=== PATIENT | male | born 1930 | race Caucasian/White ===

== ENCOUNTER 2018-12-18 14:08 | Emergency (ER) | payer OTHER ==
[2018-12-18 14:54] VITALS: BP 143/54; PULSE 67; TEMP 96.7; BMI 23.1
--- NOTE | 2018-12-18 15:24 | PDOC ---
History of Present Illness - General Chief Complaint: Altered Mental Status Stated Complaint: Altered Mental Status Time Seen by Provider: 12/18/18 14:26 History Source: Patient, Spouse ( present at bedside.), Longterm Records Exam Limitations: Dementia - History of Present Illness Initial Comments: HPI: 88 y/o male presenting to [facility] ER from [facility] for aggressive behavior. Transfer paperwork indicates the pt was shaking his wheelchair and attempting to overturn tables. at bedside reports the pt seems somewhat confused but then endorses confusion at baseline. She expresses concern the pt has a UTI as he has exhibited somewhat similar symptoms with previous UTIs vs dehydration. She further reports the pt struck his left arm but does not believe he fell to the ground or passed out. Pt was started on Celexa and Klonopin on 16 December 2018. Pt reports he feels something like a rubber band in his left shoulder, though sometimes he feels this in his right shoulder. Limited HPI as pt is only oriented to self. MOLST Form dated 24 August 2018 indicates pt is DNR/DNI. Medical Hx: - CVA/TIA - Generalized Muscle Weakness - HTN - Systolic CHF - HLD - BPH - H/o recurrent UTI - Unspecified cardiomyopathy - H/o of Thyroid CA s/p thyroidectomy - Macular Degeneration - Parkinsons Disease - Generalized weakness, unable to stand or walk without assistance - Unspecified dementia without behavioral disturbance Review of Systems: Unable to obtain secondary to pts condition Physical Examination: Constitutional: Nontoxic elderly adult male in no acute distress or obvious discomfort. Found semi-fowlers on hospital bed. Eyes closed but answers immediately to verbal questioning. Oriented to person but not place, time, or events. Episode of bizarre conversation about baby wrists. Head: Normocephalic. No obvious external signs of trauma. No c-spine tenderness. Eyes: Pt would not open eyes. Ears: Hearing grossly intact. Nose: No nasal discharge. Neck: Supple, trachea is midline. Cardiovascular / Chest: Regular rate and regular rhythm. No murmur, rubs, clicks , or gallops. Peripheral pulses: radial pulses full. No pretibial edema. No anterior chest wall tenderness to palpation. Respiratory: Breathing unlabored. Equal chest rise and fall. Clear to auscultation bilaterally. No stridor, no wheezing, no rhonchi. Gastrointestinal: abdomen is soft, non-tender, non-distended. Easily reducible ventral hernia. Neuro: Moving all four extremities spontaneously. Skin / MSK: 2x aprox. 1cm skin tears to left forearm. No obvious bony deformities. No tenderness to palpation in wrist, forewarm, or elbow. Active ROM normal in wrist and elbow. Globally, skin is warm and dry. Psych: Affect: flat. Mood: normal. MDM: *Reviewed vital signs, nursing notes, and prior visit documentation (if available). 88 y/o male presenting w/ altered mental status w/ aggressive behavior. Recently started on Celexa and Klonopin. Afebrile. Vitals unremarkable for hypotension or tachycardia. Physical exam as described above. Suspect likely psychiatric medication side effects versus progression of dementia. Low suspicion for infectious etiology. CBC unremarkable for leukocytosis. UA unremarkable for signs of infection. Head CT unremarkable for acute intracranial process. CMP revealed mild azotemia. Suspect likely mild dehydration. Received IVFB. ED Attending reasessd pt and discussed the case with Dr. Langley. Pt discharged back to [facility] for further psychiatric evaluation. Storm Gregorio M.D., PGY2 Emergency Medicine Resident Past History - Past Medical History Allergies/Adverse Reactions: Allergies Allergy/AdvReac Type Severity Reaction Status Date / Time ramipril Allergy Verified 12/18/18 14:36 Anemia: Yes Cancer: Yes (thyroid) Cardiac Disorders: Yes (bradycardia, cardiomyopathy) CVA: Yes (tia) COPD: No HTN: Yes Other medical history: metabolic encephalopathy, bph, parkinson's disease - Suicide/Smoking/Psychosocial Hx Smoking History: Never smoked *Physical Exam - Vital Signs Last Vital Signs Temp Pulse Resp BP Pulse Ox 96.7 F L 67 143/54 L 92 L 12/18/18 14:36 12/18/18 14:36 12/18/18 14:36 12/18/18 14:36 ED Treatment Course - LABORATORY CBC & Chemistry Diagram: 12/18/18 15:40 12/18/18 15:40 - RADIOLOGY Radiology Studies Ordered: Category Date Time Status HEAD CT WITHOUT CONTRAST [CT] Stat CT Scan 12/18/18 15:22 Ordered *DC/Admit/Observation/Transfer Diagnosis at time of Disposition: Aggressive behavior of adult - Discharge Dispostion Disposition: HOME Condition at time of disposition: Good Decision to Admit order: No - Referrals Referrals: Darshan Langley MD [Primary Care Provider] - - Patient Instructions Additional Instructions: You were seen today for aggressive behavior. Your blood and urine tests were normal aside from possible slight dehydration. Your head CT was normal. You received IV fluids. Make sure to stay hydrated over the next several days. Follow up with your primary care doctor and discuss the new psychiatric medications. These may be the cause of your symptoms. Go to the nearest emergency department if your condition worsens or you feel like you need additional emergency evaluation. Print Language: GUYANESE - Post Discharge Activity
[2018-12-18] MEDS ORDERED: SODIUM CHLORIDE 1,000 ML IV ONE (15:39)
[2018-12-18 16:15] LABS: BASO % 0.8 % (0-2.0); EOS % 3.2 % (0-4.5); HEMATOCRIT 31.6 % (35.4-49); HEMOGLOBIN 10.7 GM/dL (11.7-16.9); LYMPH % 15.9 % (8-40); MCH 29.9 pg (25.7-33.7); MEAN PLT VOLUME 8.4 fl (7.5-11.1); MONO % 10.7 % (3.8-10.2); NEUT % 69.4 % (42.8-82.8); PLATELET COUNT 214 K/MM3 (134-434); RBC 3.59 M/mm3 (4.00-5.60); RDW 14.1 % (11.9-15.9); WHITE BLOOD COUNT 5.1 K/mm3 (4.0-10.0)
--- NOTE | 2018-12-18 16:26 | PDOC ---
Documentation entered by Olivia Velásquez SCRIBE, acting as scribe for Victor Hugo José MD. Victor Hugo José MD: This documentation has been prepared by the Christen estrada Brenda, SCRIBE, under my direction and personally reviewed by me in its entirety. I confirm that the documentation accurately reflects all work, treatment, procedures, and medical decision making performed by me. Attending Attestation - Resident Resident Name: Storm - ED Attending Attestation I have performed the following: I have examined & evaluated the patient, The case was reviewed & discussed with the resident, I agree w/resident's findings & plan, Exceptions are as noted - HPI HPI: 12/18/18 15:39 The patient is a 88 year old male, with a significant PMH of CVA/TIA, Generalized Muscle Weakness (unable to stand or walk without assistance), HTN, Systolic CHF, HLD, BPH, H/o recurrent UTI, Unspecified cardiomyopathy, H/o of Thyroid CA s/p thyroidectomy, Macular Degeneration, Parkinsons Disease, Unspecified dementia without behavioral disturbance who presents to the emergency department BIB from [facility] for altered mental status resulting in aggressive behavior. As per paperwork, patient was shaking wheelchair and trying to overturn tables, in an aggressive manner. per , on the bedside, on the bedside she note that he is reacting the same way as he did when he had his previous UTIs. She reports that he has struck his left arm , but she neither she or he is aware of any falls. She also notes that he is confused, which is his baseline. History was limited due to patients condition , however he does note having no complaints. Allergies: Ramipril PCP: Dr. Darshan Langley - Physicial Exam PE: 12/18/18 15:37 GENERAL: The patient is awake, alert and oriented x 1 HEAD: Normocephalic, atraumatic. EYES: extraocular movements intact, sclera anicteric, conjunctiva clear. ENT: Normal voice, dry mucous membranes. NECK: Normal range of motion, supple LUNGS: Breath sounds equal, clear to auscultation bilaterally. No wheezes, no rhonchi, no rales. HEART: Regular rate and rhythm, normal S1 and S2 without murmur, rub or gallop. ABDOMEN: Soft, nontender, No guarding, no rebound. No CVA tenderness EXTREMITIES: Normal range of motion, no edema. NEUROLOGICAL: No facial assymetry, Normal speech, moving all 4 extremities spontaneously and symmetrically PSYCH: Normal mood, normal affect. SKIN: Warm, Dry, normal turgor, - Medical Decision Making 12/18/18 15:16 88y M chf, cva/tia, recurrent tia, parkinsons, htn, hl, bph, unspecified dementia, from [facility] presents with confusion. history limited exam non focal beside mental status and dry mmm ddx - cva, occult infection, med interaction will ck labs, ua, cxr, ct head efrain hydrate pt as he appears dry wlil reassess 12/18/18 17:21 labs reviewed noted for nena, likely dehydration charanjit Iyer and CT head pt signed ou tto evening team for disposition and reassess Heart Score/ECG Review - ECG Impressions Comment:: 12/18/18 17:11 Twelve-lead EKG was performed and reviewed by me. There is normal sinus rhythm with a normal rate. rate of [address] wave changes no old ekg for comparison
[2018-12-18 16:44] LABS: ALBUMIN 3.7 g/dl (3.4-5.0); BILIRUBIN,TOTAL 0.5 mg/dL (0.2-1); BLOOD UREA NITROGEN 38.6 mg/dL (7-18); CALCIUM 9.5 mg/dL (8.5-10.1); CREATININE 1.4 mg/dL (0.55-1.3); POTASSIUM 4.1 mmol/L (3.5-5.1); TOT PROT 6.7 g/dl (6.4-8.2)
[2018-12-18 17:21] LABS: PH,URINE 7.5 (5.0-8.0); URINE APPEARANCE CLEAR; URINE BILIRUBIN NEGATIVE (NEGATIVE); URINE COLOR YELLOW; URINE GLUCOSE (UA) NEGATIVE (NEGATIVE); URINE KETONE NEGATIVE (NEGATIVE); URINE LEUK ESTERASE NEGATIVE (NEGATIVE); URINE NITRITE NEGATIVE (NEGATIVE); URINE PROTEIN NEGATIVE (NEGATIVE); URINE UROBILINOGEN 0.2 mg/dL (0.2-1.0)
--- NOTE | 2018-12-18 19:35 | PDOC ---
*Physical Exam - Vital Signs Last Vital Signs Temp Pulse Resp BP Pulse Ox 96.7 F L 67 143/54 L 92 L 12/18/18 14:36 12/18/18 14:36 12/18/18 14:36 12/18/18 14:36 ED Treatment Course - LABORATORY CBC & Chemistry Diagram: 12/18/18 15:40 12/18/18 15:40 - ADDITIONAL ORDERS Additional order review: Laboratory Results 12/18/18 12/18/18 12/18/18 17:00 15:40 15:40 Sodium 140 Potassium 4.1 Chloride 103 Carbon Dioxide 30 Anion Gap 8 BUN 38.6 H Creatinine 1.4 H Est GFR (CKD-EPI)AfAm 51.26 Est GFR (CKD-EPI)NonAf 44.23 Random Glucose 96 Calcium 9.5 Total Bilirubin 0.5 AST 18 ALT 16 Alkaline Phosphatase 70 Troponin I < 0.02 Total Protein 6.7 Albumin 3.7 Urine Color Yellow Urine Appearance Clear Urine pH 7.5 Ur Specific [place] 1.011 Urine Protein Negative Urine Glucose (UA) Negative Urine Ketones Negative Urine Blood Negative Urine Nitrite Negative Urine Bilirubin Negative Urine Urobilinogen 0.2 Ur Leukocyte Esterase Negative 12/18/18 15:40 RBC 3.59 L MCV 88.0 MCHC 34.0 RDW 14.1 MPV 8.4 Neutrophils % 69.4 Lymphocytes % 15.9 Monocytes % 10.7 H Eosinophils % 3.2 Basophils % 0.8 - Medications Given in the ED: ED Medications Discontinued Medications Generic Name Dose Route Start Last Admin Trade Name Freq PRN Reason Stop Dose Admin Sodium Chloride 1,000 mls @ 1,000 mls/hr 12/18/18 15:39 12/18/18 15:49 Normal Saline - IV 12/18/18 16:38 1,000 mls/hr .Q1H ONE Administration Medical Decision Making - Medical Decision Making 12/18/18 19:33 skin the head was negative for any acute intracranial pathology UA was negative. Labs were reviewed This patient was started on Celexa and Klonopin 2 days ago and he had never been on these medications prior to this. Patient is sleeping but wakes and responds appropriately when you speak to him. This is his baseline. Case discussed with Dr. Darshan Ureña, who agrees the [facility] The plan is for the psychiatrist there to eval his psychiatric medications and make adjustments *DC/Admit/Observation/Transfer Diagnosis at time of Disposition: Aggressive behavior of adult - Discharge Dispostion Disposition: HOME Condition at time of disposition: Good - Referrals Referrals: Darshan Langley MD [Primary Care Provider] - - Patient Instructions Additional Instructions: You were seen today for aggressive behavior. Your blood and urine tests were normal aside from possible slight dehydration. Your head CT was normal. You received IV fluids. Make sure to stay hydrated over the next several days. Follow up with your primary care doctor and discuss the new psychiatric medications. These may be the cause of your symptoms. Go to the nearest emergency department if your condition worsens or you feel like you need additional emergency evaluation. Print Language: YI - Post Discharge Activity
--- NOTE | 2018-12-19 09:30 | EKG ---
Test Reason : Blood Pressure : / mmHG Vent. Rate : 065 BPM Atrial Rate : 065 BPM P-R Int : 134 ms QRS Dur : 100 ms QT Int : 450 ms P-R-T Axes : 030 -07 033 degrees QTc Int : 468 ms POOR DATA QUALITY, INTERPRETATION MAY BE ADVERSELY AFFECTED NORMAL SINUS RHYTHM MODERATE VOLTAGE CRITERIA FOR LVH, MAY BE NORMAL VARIANT NONSPECIFIC ST ABNORMALITY ABNORMAL ECG NO PREVIOUS ECGS AVAILABLE Confirmed by Srinath Montano MD ([id number]) on 12/19/2018 9:29:35 AM Referred By: Confirmed By:Srinath Montano MD
== END 2018-12-18 21:22 ==
LOC: JER 14:08
DX: F91.8 Other conduct disorders (principal); I25.10 Atherosclerotic heart disease of native coronary artery without angina pectoris; I13.0 Hypertensive heart and chronic kidney disease with heart failure and stage 1 through stage 4 chronic kidney disease, or unspecified chronic kidney disease; N18.9 Chronic kidney disease, unspecified; I50.20 Unspecified systolic (congestive) heart failure; E78.5 Hyperlipidemia, unspecified; M62.81 Muscle weakness (generalized); N40.0 Benign prostatic hyperplasia without lower urinary tract symptoms; G20 Parkinson's disease; F02.81 Dementia in other diseases classified elsewhere, unspecified severity, with behavioral disturbance; E89.0 Postprocedural hypothyroidism; Z86.73 Personal history of transient ischemic attack (TIA), and cerebral infarction without residual deficits; Z87.440 Personal history of urinary (tract) infections; Z85.850 Personal history of malignant neoplasm of thyroid
CPT/HCPCS: 36415; 70450-TC; 80053; 81003; 84484; 85025; 87086; 93005; 93010; 99282-25; J7030

== ENCOUNTER 2019-03-01 08:24 | Emergency (ER) | payer OTHER, MEDICARE ==
--- NOTE | 2019-03-01 08:38 | PDOC ---
History of Present Illness - General Chief Complaint: Injury Stated Complaint: FALL/HEAD INJURY Time Seen by Provider: 03/01/19 08:38 Past History - Past Medical History Allergies/Adverse Reactions: Allergies Allergy/AdvReac Type Severity Reaction Status Date / Time ramipril Allergy Verified 12/18/18 14:36 Anemia: Yes Cancer: Yes (thyroid) Cardiac Disorders: Yes (bradycardia, cardiomyopathy) CVA: Yes (tia) COPD: No HTN: Yes - Psycho Social/Smoking Cessation Hx Smoking History: Never smoked ED Treatment Course - LABORATORY CBC & Chemistry Diagram: 03/01/19 12:15 03/01/19 12:15 Medical Decision Making - Medical Decision Making HPI: 88yo M with PMH of dementia, anxiety, depression, anemia, HLD sent by [facility] after a witnessed fall. Staff at CT saw the patient get up from his wheelchair and hit his head against the wall. No loss of consciousness or vomiting observed. Patient is not on blood thinners. At baseline, he is oriented to person but not place or time. He was sent to the ER on request from his primary care physician. History is limited as patient is uncooperative with exam. PCP: Dr. Langley ROS: unable to complete (patient uncooperative) PE: General: Eyes closed, arms folded, not answering questions, not following commands Head: Soft tissue swelling and superficial abrasion on right side of forehead Eyes: Eyes closed shut, PERRL ENT: Moist mucus membranes Neck: no stepoffs or deformities Lungs: Lungs clear, Normal breath sounds Cardio: Regular rhythm, S1 and S2 present Abdomen: Soft, nondistended. No grimacing noted upon palpation Extremities: Distal pulses present, ecchymosis and minor abrasions present on BLE SKIN: Warm, Dry, normal turgor Neurologic: Eyes closed, arms folded, not answering questions, not following commands ED Course/MDM: DDX including but not limited to brain bleed, cspine fracture, CVA/TIA CT Head CT Cspine 03/01/19 08:38 Call to Idalia Diego Patient had witnessed fall at 6:57am Sent to ER because he suffered a witnessed fall from his wheelchair and hit his head against the wall head bled No LOC Alert, was talking, VSS Dr. Langley requested that patient be sent to ER for CT Not on blood thinners Patient often closes his eyes and acts like he is asleep can say his name, not oriented to date/time Ext 307 03/01/19 08:48 Decision made to order some blood work and EKG as patient is non-conversant CBC WBC 3.7 K/mm3 (4.0-10.0) L 03/01/19 12:15 RBC 3.75 M/mm3 (4.00-5.60) L 03/01/19 12:15 Hgb 11.2 GM/dL (11.7-16.9) L 03/01/19 12:15 Hct 33.5 % (35.4-49) L 03/01/19 12:15 MCV 89.3 fl (80-96) 03/01/19 12:15 MCH 29.8 pg (25.7-33.7) 03/01/19 12:15 MCHC 33.4 g/dl (32.0-35.9) 03/01/19 12:15 RDW 13.4 % (11.9-15.9) 03/01/19 12:15 Plt Count 200 K/MM3 (134-434) 03/01/19 12:15 MPV 7.8 fl (7.5-11.1) 03/01/19 12:15 Absolute Neuts (auto) 2.3 K/mm3 (1.5-8.0) 03/01/19 12:15 Neutrophils % 62.1 % (42.8-82.8) 03/01/19 12:15 Lymphocytes % 20.4 % (8-40) D 03/01/19 12:15 Monocytes % 14.8 % (3.8-10.2) H 03/01/19 12:15 Eosinophils % 2.1 % (0-4.5) 03/01/19 12:15 Basophils % 0.6 % (0-2.0) 03/01/19 12:15 Nucleated RBC % 0 % (0-0) 03/01/19 12:15 No leukocytosis CMP Sodium 139 mmol/L (136-145) 03/01/19 12:15 Potassium 3.9 mmol/L (3.5-5.1) 03/01/19 12:15 Chloride 106 mmol/L (98-107) 03/01/19 12:15 Carbon Dioxide 28 mmol/L (21-32) 03/01/19 12:15 Anion Gap 5 MMOL/L (8-16) L 03/01/19 12:15 BUN 23.4 mg/dL (7-18) H 03/01/19 12:15 Creatinine 1.1 mg/dL (0.55-1.3) 03/01/19 12:15 Est GFR (CKD-EPI)AfAm 68.62 03/01/19 12:15 Est GFR (CKD-EPI)NonAf 59.20 03/01/19 12:15 POC Glucometer 97 UNITS (80-120) 03/01/19 11:52 Random Glucose 98 mg/dL (74-106) 03/01/19 12:15 Calcium 9.0 mg/dL (8.5-10.1) 03/01/19 12:15 Total Bilirubin 0.4 mg/dL (0.2-1) 03/01/19 12:15 AST 13 U/L (15-37) L 03/01/19 12:15 ALT 13 U/L (13-61) 03/01/19 12:15 Alkaline Phosphatase 58 U/L (45-117) 03/01/19 12:15 Creatine Kinase 91 U/L (26-308) 03/01/19 12:15 Troponin I < 0.02 ng/ml (0.00-0.05) 03/01/19 12:15 Total Protein 5.9 g/dl (6.4-8.2) L 03/01/19 12:15 Albumin 3.3 g/dl (3.4-5.0) L 03/01/19 12:15 Electrolytes unremarkable Tpn undetectable Cr normal UA without infection CT cspine: "CT scan of the head without intravenous contrast Compared to prior examination dated 12/18/2016 There remains moderate volume loss and ventricular dilatation. Mild periventricular chronic microvascular ischemic disease changes are present. No mass lesion, gross acute infarct or intracranial hemorrhage are identified. There is no shift of the midline structures. The calvarium is intact. Visualized paranasal sinuses and right mastoid sinuses are well aerated. Left mastoid air cells are essentially totally opacified IMPRESSION: No significant interval change. Moderate atrophy without gross CT evidence of acute intracranial pathology. The calvarium is intact. Left mastoid effusion. " CT head: "Coronal and sagittal reconstruction images were obtained. Patient's head is significantly tilted towards the right and this significantly flexed limiting this exam. No gross fracture, subluxation or prevertebral soft tissue swelling is seen. No gross fracture, subluxation or jumped facets are identified. Multilevel degenerative disc disease and bilateral facet hypertrophy are present. That is most prominent at C6-C7 and to a lesser extent C5-C6 level with anterior and mild posterior spur formation. Visualized portion of the airway appears unremarkable. No gross enlarged lymph nodes are identified. Lung windows at the thoracic inlet appear unremarkable. IMPRESSION: Limited examination, as described above without gross evidence of a fracture, subluxation or jumped facets. Multilevel degenerative disc disease and bilateral facet hypertrophy " EKG: rate 56, QTc 470, sinus bradycardia 03/01/19 13:[address] head without acute pathology Discharged with return precautions Wound care instructions given Spoke with Idalia Diego at [facility] and updated her on patient's discharge 03/01/19 13:39 Discharge - Discharge Information Problems reviewed: Yes Clinical Impression/Diagnosis: Fall Qualifiers: Encounter type: initial encounter Qualified Code(s): W19.XXXA - Unspecified fall, initial encounter Condition: Stable Disposition: HOME - Follow up/Referral Referrals: Darshan Langley MD [Primary Care Provider] - - Patient Discharge Instructions Patient Printed Discharge Instructions: How to Prevent Falls Additional Instructions: You came into the emergency department after a fall. We performed a CT scan of your head and neck which did not indicate acute pathology. Lab work was within normal limits. You suffered abrasions to your nose and forehead that did not require stitches. Apply an antibiotic ointment to the areas twice a day to prevent infection. Follow-up with your primary care doctor this week to discuss this ED visit and to ensure you are progressing appropriately. Call and make an appointment. Your workup is not complete until you do so. Immediate medical attention is required if you experience: severe headache, fever and chills, nausea and vomiting, lightheadedness, inability to breathe or very rapid breathing, rapid irregular heartbeat, chest pain, or trouble breathing. If you think you are having an emergency, call for emergency medical services or present to the emergency department right away - Post Discharge Activity
[2019-03-01 08:46] VITALS: TEMP 98.2
[2019-03-01 08:53] VITALS: BMI 23.3
[2019-03-01 11:09] VITALS: PULSE 60
[2019-03-01] MEDS ORDERED: DIPHTH,PERTUSS(ACELL),TET 0.5 ML DISP.SYRIN IM ONE ×2 (11:41→13:28)
[2019-03-01 12:31] LABS: BASO % 0.6 % (0-2.0); EOS % 2.1 % (0-4.5); HEMATOCRIT 33.5 % (35.4-49); HEMOGLOBIN 11.2 GM/dL (11.7-16.9); LYMPH % 20.4 % (8-40); MCH 29.8 pg (25.7-33.7); MCHC 33.4 g/dl (32.0-35.9); MEAN CELL VOLUME 89.3 fl (80-96); MEAN PLT VOLUME 7.8 fl (7.5-11.1); MONO % 14.8 % (3.8-10.2); NEUT % 62.1 % (42.8-82.8); PLATELET COUNT 200 K/MM3 (134-434); RBC 3.75 M/mm3 (4.00-5.60); RDW 13.4 % (11.9-15.9); WHITE BLOOD COUNT 3.7 K/mm3 (4.0-10.0)
[2019-03-01 13:02] LABS: ALBUMIN 3.3 g/dl (3.4-5.0); BILIRUBIN,TOTAL 0.4 mg/dL (0.2-1); BLOOD UREA NITROGEN 23.4 mg/dL (7-18); CREATININE 1.1 mg/dL (0.55-1.3); POTASSIUM 3.9 mmol/L (3.5-5.1); TOT PROT 5.9 g/dl (6.4-8.2)
[2019-03-01 13:24] LABS: PH,URINE 7.5 (5.0-8.0); URINE APPEARANCE CLEAR; URINE BILIRUBIN NEGATIVE (NEGATIVE); URINE COLOR YELLOW; URINE GLUCOSE (UA) NEGATIVE (NEGATIVE); URINE KETONE NEGATIVE (NEGATIVE); URINE LEUK ESTERASE NEGATIVE (NEGATIVE); URINE NITRITE NEGATIVE (NEGATIVE); URINE PROTEIN NEGATIVE (NEGATIVE); URINE UROBILINOGEN 0.2 mg/dL (0.2-1.0)
[2019-03-01 14:12] VITALS: BP 165/67
--- NOTE | 2019-03-01 15:22 | PDOC ---
Documentation entered by Mitzi Richardson SCRIBE, acting as scribe for Prince Staples MD. rPince Staples MD: This documentation has been prepared by the Debra estrada Sammi, SCRIBE, under my direction and personally reviewed by me in its entirety. I confirm that the documentation accurately reflects all work, treatment, procedures, and medical decision making performed by me. Attending Attestation - Resident Resident Name: MarieDorinda - ED Attending Attestation I have performed the following: I have examined & evaluated the patient, The case was reviewed & discussed with the resident, I agree w/resident's findings & plan, Exceptions are as noted - HPI HPI: 03/01/19 11:45 The patient is an 88 year old male who presents from [facility] for evaluation s/p witnessed fall when attempting to remove himself from his wheelchair on his own , losing balance, and hitting his head on the wall, as per nursing staff a [facility]. NH denies LOC. Patient's PCP Shivam requested the patient come in for evaluation. Allergies: ramipril PMH: dementia, anxiety, depression, anemia, HLD PCP: Shivam 03/01/19 16:27 - Physicial Exam PE: 03/01/19 16:25 Vitals: Triage Vital signs reviewed small abrasion to right side of head General Appearance: No acute distress, well nourished well developed, Head: Small abrasion to right side of head Eyes: Pupils equal reactive round, extraocular movement intact Ears: TM's normal bilaterally; Neck: Supple; no Nucal rigidity Chest Wall: Nontender Cardiac: Regular rate and rhythym, Lungs: Clear to auscultation bilateral, good air movement bilaterally, Abdomen: Soft, non distended, normal bowel sounds, non tender to palpation Extremities: Full range of motion to all extremities, no cyanosis, clubbing, or edema Skin: Warm and dry, no rashes or lesions, no rash, no petechiae Neuro:strength intact to all extremities, sensation intact to all extremities - Medical Decision Making 03/01/19 16:27 Labs urinalysis and imaging within normal limits will discharge back to longterm patient instructed to return to ED for any severe worsening symptoms or any concerns Heart Score/ECG Review - ECG Impressions Comment:: 03/01/19 16:25 EKG performed at 1218 demonstrates normal sinus rhythm no ST elevations or T wave inversions
--- NOTE | 2019-03-02 14:35 | EKG ---
Test Reason : Blood Pressure : / mmHG Vent. Rate : 056 BPM Atrial Rate : 056 BPM P-R Int : 194 ms QRS Dur : 102 ms QT Int : 488 ms P-R-T Axes : 058 -20 022 degrees QTc Int : 470 ms SINUS BRADYCARDIA MODERATE VOLTAGE CRITERIA FOR LVH, MAY BE NORMAL VARIANT WHEN COMPARED WITH ECG OF 18-DEC-2018 15:42, NO SIGNIFICANT CHANGE WAS FOUND Confirmed by CAMILO MNO MD ([id number]) on 03/02/2019 2:34:50 PM Referred By: Confirmed By:CAMILO MON MD
== END 2019-03-01 14:25 | disposition home or self-care (01) ==
LOC: JER 08:24
PROC: 3E0234Z Introduction of Serum, Toxoid and Vaccine into Muscle, Percutaneous Approach (ICD-10-PCS; principal; 2019-03-01)
DX: S09.90XA Unspecified injury of head, initial encounter (principal); W18.39XA Other fall on same level, initial encounter; Y93.89 Activity, other specified; Y92.9 Unspecified place or not applicable; I10 Essential (primary) hypertension; Z86.73 Personal history of transient ischemic attack (TIA), and cerebral infarction without residual deficits; D64.9 Anemia, unspecified; R00.1 Bradycardia, unspecified; I42.9 Cardiomyopathy, unspecified; F41.8 Other specified anxiety disorders; Z88.8 Allergy status to other drugs, medicaments and biological substances
CPT/HCPCS: 36415; 70450-TC; 72125-TC; 80053; 81003; 82550; 82962; 84484; 85025; 87086; 87186; 90715; 93005; 93010; 99283-25

== ENCOUNTER 2019-03-15 15:41 | Inpatient (IN) | payer OTHER, MEDICARE ==
--- NOTE | 2019-03-15 16:38 | PDOC ---
History of Present Illness - General Chief Complaint: Blood Pressure Problem Stated Complaint: CHEST PAIN Time Seen by Provider: 03/15/19 16:09 History Source: Patient, Spouse, Alf Records Exam Limitations: No Limitations - History of Present Illness Initial Comments: 03/15/19 16:34 88Y M with PMH of CVA/TIA 2018, HTN, CHF, HTN, BPJ, Cardiomyopathy, Thyroid ca s /p thyroidectomy, Dementia, Anxiety presenting to ED with complaints of chest pain and SOB that began at 2pm today. He describes the pain as a tightness on the R side, does not radiate. He denies symptoms at this time. Denies cough, congestion, abdominal pain, n/v/d, urinary symptoms, headaches. Had bowel movement yesterday At baseline per PMD: Androne PMH: see hpi PSH: see hpi Meds: see med rec Allergies: ACEI Past History - Past Medical History Allergies/Adverse Reactions: Allergies Allergy/AdvReac Type Severity Reaction Status Date / Time ramipril Allergy Verified 03/15/19 16:21 Anemia: Yes Cancer: Yes (thyroid) Cardiac Disorders: Yes (bradycardia, cardiomyopathy) CVA: Yes (tia) COPD: No HTN: Yes Psychiatric Problems: Yes (depression, anxiety) - Immunization History Immunization Up to Date: Yes - Psycho Social/Smoking Cessation Hx Smoking History: Never smoked Have you smoked in the past 12 months: No Hx Alcohol Use: No Drug/Substance Use Hx: No Review of Systems - Review of Systems Constitutional: No: Chills, Fever HEENTM: No: Symptoms Reported Respiratory: Yes: See HPI Cardiac (ROS): Yes: See HPI ABD/GI: No: Symptoms Reported : No: Symptoms Reported Musculoskeletal: No: Symptoms Reported Integumentary: No: Symptoms Reported Neurological: No: Symptoms reported *Physical Exam - Vital Signs Last Vital Signs Temp Pulse Resp BP Pulse Ox 97.5 F L 65 18 138/69 95 03/15/19 16:19 03/15/19 16:19 03/15/19 16:19 03/15/19 16:19 03/15/19 16:19 - Physical Exam Comments: 03/15/19 20:51 has eyes closed General Appearance: Yes: Appropriately Dressed, Thin. No: Apparent Distress HEENT: positive: EOMI, [place] Neck: positive: Trachea midline, Supple. negative: Lymphadenopathy (R), Lymphadenopathy (L) Respiratory/Chest: positive: Lungs Clear, Normal Breath Sounds. negative: Crackles, Rales, Rhonchi, Stridor, Wheezing Cardiovascular: positive: Regular Rhythm, Regular Rate, S1, S2. negative: Edema , JVD, Murmur Vascular Pulses: Dorsalis-Pedis (R): 2+, Doralis-Pedis (L): 2+ Gastrointestinal/Abdominal: positive: Normal Bowel Sounds, Soft. negative: Tender, Guarding, Rebound, Mass Musculoskeletal: negative: CVA Tenderness Extremity: positive: Normal Capillary Refill. negative: Pedal Edema, Swelling, Calf Tenderness Integumentary: positive: Normal Color, Dry, Warm Neurologic: positive: inside tester II-XII NML intact, Alert, Normal Mood/Affect, Normal Response, Motor Strength 5/5. negative: Fully Oriented (AOx2) ED Treatment Course - LABORATORY CBC & Chemistry Diagram: 03/15/19 17:14 03/15/19 17:14 - RADIOLOGY Radiology Studies Ordered: Category Date Time Status CHEST X-RAY PORTABLE* [RAD] Stat Radiology 03/15/19 16:14 Ordered Medical Decision Making - Medical Decision Making 03/15/19 20:53 88y M presenting with chest pain and sob now resolved. vitals wnl; afebrile, normotensive, normocardic, saturating well on RA, no respiratory distress. ddx includes but not limited to acs (unstable v. stable angina), pna, ptx, copd , chf exacerbation -labs including trop, bnp, coags, cbc -ekg, cxr ekg: sinus at 63pbm, normal axis, LVH. no corie or depressions. cxr: cardiomegaly- dilated bowel loop. no abdominal pain. labs show anemia (baseline), negative trop, bnp 500. cr 2.0 with BUN 39. likely prerenal. Cr normal at baseline will hydrate with fluids ua negative for infection. will admit for lady, endorsed to Dr. Langley who accepts patient. asking for bladder us, order placed. Discharge - Discharge Information Problems reviewed: Yes Clinical Impression/Diagnosis: LADY (acute kidney injury) Condition: Stable - Admission Yes - Follow up/Referral - Patient Discharge Instructions - Post Discharge Activity
[2019-03-15 17:36] LABS: BASO % 1.1 % (0-2.0); EOS % 3.6 % (0-4.5); HEMOGLOBIN 11.2 GM/dL (11.7-16.9); LYMPH % 23.1 % (8-40); MCH 29.4 pg (25.7-33.7); MCHC 32.9 g/dl (32.0-35.9); MEAN CELL VOLUME 89.3 fl (80-96); MEAN PLT VOLUME 8.3 fl (7.5-11.1); MONO % 12.8 % (3.8-10.2); NEUT % 59.4 % (42.8-82.8); PLATELET COUNT 224 K/MM3 (134-434); RBC 3.81 M/mm3 (4.00-5.60); RDW 13.5 % (11.9-15.9); WHITE BLOOD COUNT 3.6 K/mm3 (4.0-10.0)
[2019-03-15 17:44] LABS: INR 1.11 (0.83-1.09); PROTHROMBIN TIME (PATIENT) 13.1 SEC (9.7-13.0)
[2019-03-15 17:57] LABS: PH,URINE 5.5 (5.0-8.0); URINE APPEARANCE CLEAR; URINE BILIRUBIN NEGATIVE (NEGATIVE); URINE COLOR YELLOW; URINE GLUCOSE (UA) NEGATIVE (NEGATIVE); URINE KETONE NEGATIVE (NEGATIVE); URINE LEUK ESTERASE NEGATIVE (NEGATIVE); URINE NITRITE NEGATIVE (NEGATIVE); URINE PROTEIN NEGATIVE (NEGATIVE); URINE UROBILINOGEN 0.2 mg/dL (0.2-1.0)
[2019-03-15 18:06] LABS: ALBUMIN 3.6 g/dl (3.4-5.0); ALK PHOS 73 U/L (45-117); ANION GAP 6 MMOL/L (8-16); BILIRUBIN,TOTAL 0.4 mg/dL (0.2-1); BLOOD UREA NITROGEN 39.2 mg/dL (7-18); CALCIUM 9.1 mg/dL (8.5-10.1); CHLORIDE 103 mmol/L (98-107); CO2 28 mmol/L (21-32); GLUCOSE,RANDOM 110 mg/dL (74-106); POTASSIUM 4.4 mmol/L (3.5-5.1); SGOT/AST 13 U/L (15-37); SGPT/ALT 16 U/L (13-61); SODIUM 136 mmol/L (136-145); TOT PROT 6.8 g/dl (6.4-8.2)
[2019-03-15] MEDS ORDERED: SODIUM CHLORIDE 1,000 ML IV STA (18:42)
[2019-03-15 18:57] LABS: N-TERMINAL BNP 577.8 pg/ml (5-450)
--- NOTE | 2019-03-15 19:11 | PDOC ---
Documentation entered by Esmer Velásquez SCRIBE, acting as scribe for Idalia Swan DO. Idalia Swan, DO: This documentation has been prepared by the Christen estrada Adrianna, SCRIBE, under my direction and personally reviewed by me in its entirety. I confirm that the documentation accurately reflects all work, treatment, procedures, and medical decision making performed by me. Attending Attestation - Resident Resident Name: Surekha Stone - ED Attending Attestation I have performed the following: I have examined & evaluated the patient, The case was reviewed & discussed with the resident, I agree w/resident's findings & plan, Exceptions are as noted - HPI HPI: The patient is an 88 year old male, with a significant PMH of CVA/TIA 2018, HTN , CHF, HTN, BPJ, cardiomyopathy, thyroid CA (s/p thyroidectomy), and anxiety, who presents to the ED BIBEMS from [facility] for evaluation of chest pain and SOB since earlier this afternoon. Patients notes the patient developed sudden-onset right sided chest pain at rest while in his wheelchair. He endorses associated SOB at that time. Patient notes the symptoms have resolved while in the ED. Denies any recent illnesses, cough, fever, chills, nausea, vomit. Allergies: Ramipril Surgical History: Thyroidectomy Social History: Denies EtOH, tobacco, or illicit drug use PCP: Dr. Langley - Physicial Exam PE: Constitutional: +Pleasantly demented. +Cachetic. No acute distress. Head: Normocephalic. Atraumatic Eyes: PERRL. EOMI. Conjunctivae are not pale. ENT: +Slightly dry mucous membranes. Posterior pharynx without exudates or erythema. Uvula midline. Neck: Supple. Full ROM. No lymphadenopathy. Cardiovascular: Regular rate. Regular rhythm. S1, S2 regular. Distal pulses are 2+ and symmetric. Pulmonary/Chest: No evidence of respiratory distress. Clear to auscultation bilaterally No wheezing, rales or rhonchi. Abdominal: Soft and non-distended. There is no tenderness. No rebound, guarding or rigidity. No organomegaly. No palpable masses. Good bowel sounds. Back: No CVA tenderness. Musculoskeletal: No edema. No cyanosis. No clubbing. Full range of motion in all extremities. Nocalf tenderness. Radial/pedal pulses are intact and 2+ bilaterally Skin: +Small, well-healing wound to the left tibia. Skin is warm and dry. No petechiae. No purpura. Neurological: Alert and oriented to person, place, and time. Cranial nerves II -XII are grossly intact. Normal speech. Strength is grossly symmetric. No sensory deficits. Psychiatric: Good eye contact. Normal interaction, affect and behavior. - Medical Decision Making 03/15/19 19:08 I, Dr. Idalia Swan, DO, attest that this document has been prepared under my direction and personally reviewed by me in its entirety. I further attest, that it accurately reflects all work, treatment, procedures and medical decision -making performed by me. a/p: 88yo male from [facility] with an episode of sob -no n/v -has had loose stool and multiple episodes over last few days -pt pleasantly demented -pt denies cp/sob or abd pain at this time -no acute findings on exam -will send labs, trop, bnp, cxr, ekg -will monitor and reassess 03/15/19 19:10 pt with LADY -baseline cr 1, now 2 gfr 33 will start ivf hydration -will need admission for ivf hydration 03/15/19 19:32 cxr clear 03/15/19 19:32 trop neg bnp 500 03/15/19 20:00 resident discussed the case with Dr. Langley who accepts pt to service Heart Score/ECG Review - ECG Intrepretation Comment:: 03/15/19 19:11 sinus at 63, nl axis, lvh, no acute st/t wave findings ED Treatment Course - LABORATORY CBC & Chemistry Diagram: 03/15/19 17:14 03/15/19 17:14 - ADDITIONAL ORDERS Additional order review: Laboratory Results 03/15/19 03/15/19 03/15/19 17:14 17:14 17:14 PT with INR 13.10 H INR 1.11 H Sodium 136 Potassium 4.4 Chloride 103 Carbon Dioxide 28 Anion Gap 6 L BUN 39.2 H Creatinine 2.0 H Est GFR (CKD-EPI)AfAm 33.31 Est GFR (CKD-EPI)NonAf 28.74 Random Glucose 110 H Calcium 9.1 Total Bilirubin 0.4 AST 13 L ALT 16 Alkaline Phosphatase 73 Creatine Kinase 68 Troponin I < 0.02 Total Protein 6.8 Albumin 3.6 Urine Color Yellow Urine Appearance Clear Urine pH 5.5 D Ur Specific [place] 1.013 Urine Protein Negative Urine Glucose (UA) Negative Urine Ketones Negative Urine Blood Negative Urine Nitrite Negative Urine Bilirubin Negative Urine Urobilinogen 0.2 Ur Leukocyte Esterase Negative 03/15/19 17:14 RBC 3.81 L MCV 89.3 MCHC 32.9 RDW 13.5 MPV 8.3 Neutrophils % 59.4 Lymphocytes % 23.1 Monocytes % 12.8 H Eosinophils % 3.6 Basophils % 1.1 - RADIOLOGY Radiograph Interpretation: EXAM#: TYPE/EXAM: RESULT: [id number] RAD/CHEST X-RAY PORTABLE* HISTORY PROVIDED: Chest pain. IMPRESSION: Cardiomegaly, no acute disease. Reported By: Alexx Hale MD 03/15/19 18:17
[2019-03-16 03:04] VITALS: BMI 21.7
[2019-03-16 07:58] LABS: HEMATOCRIT 34.6 % (35.4-49); HEMOGLOBIN 11.6 GM/dL (11.7-16.9); MCH 29.8 pg (25.7-33.7); MCHC 33.6 g/dl (32.0-35.9); MEAN CELL VOLUME 88.7 fl (80-96); MEAN PLT VOLUME 8.7 fl (7.5-11.1); PLATELET COUNT 233 K/MM3 (134-434); RDW 13.5 % (11.9-15.9); WHITE BLOOD COUNT 5.1 K/mm3 (4.0-10.0)
[2019-03-16 08:28] LABS: ALBUMIN 3.4 g/dl (3.4-5.0); BILIRUBIN,TOTAL 0.5 mg/dL (0.2-1); BLOOD UREA NITROGEN 31.1 mg/dL (7-18); CALCIUM 8.6 mg/dL (8.5-10.1); CREATININE 1.7 mg/dL (0.55-1.3); POTASSIUM 4.4 mmol/L (3.5-5.1); TOT PROT 6.4 g/dl (6.4-8.2)
--- NOTE | 2019-03-16 13:11 | ECHO ---
Name: ILYA VILLALTA Exam:Adult Echocardiogram Study Date: 03/16/2019 11:58 AM Age: 88 yrs Reason For Study: Chest pain Height: 70 in Weight: 151 lb BSA: 1.9 m2 MMode/2D Measurements & Calculations IVSd: 0.89 cm Ao root diam: 2.6 cm LVIDd: 4.8 cm LVIDs: 3.4 cm LVPWd: 0.86 cm EDV(Teich): 109.9 ml LVOT diam: 2.1 cm ESV(Teich): 47.8 ml Doppler Measurements & Calculations MV E max andrea: 84.9 cm/sec Ao V2 max: 154.2 cm/sec MV A max andrea: 122.9 cm/sec Ao max P.5 mmHg MV E/A: 0.69 Ao V2 mean: 126.2 cm/sec MV dec time: 0.13 sec Ao mean P.9 mmHg Ao V2 VTI: 31.6 cm YULISSA(I,D): 1.6 cm2 AI P1/2t: 502.7 msec YULISSA(V,D): 1.8 cm2 AI max andrea: 302.9 cm/sec LV V1 max P.6 mmHg AI max P.7 mmHg LV V1 mean P.4 mmHg AI dec slope: 176.5 cm/sec2 LV V1 max: 81.0 cm/sec LV V1 mean: 55.2 cm/sec LV V1 VTI: 15.0 cm MR max andrea: 355.4 cm/sec SV(LVOT): 50.6 ml MR max P.5 mmHg TR max andrea: 262.3 cm/sec Med Peak E' Andrea: 14.1 cm/sec TR max P.8 mmHg Med E/e': 6.0 Lat Peak E' Andrea: 9.6 cm/sec Lat E/e': 8.9 Procedure The study was technically difficult with many images being suboptimal in quality. Left Ventricle Left ventricular systolic function is grossly normal. Ejection Fraction = 50-55%. Regional wall motio n abnormalities cannot be excluded due to limited visualization. Right Ventricle The right ventricle is not well visualized. Atria The left atrium is not well visualized. Right atrium not well visualized. Mitral Valve The mitral valve is grossly normal. There is no mitral valve stenosis. There is mild mitral regurgita tion. Tricuspid Valve The tricuspid valve is normal in structure and function. There is mild tricuspid regurgitation. There was insufficient TR detected to calculate RV systolic pressure. Aortic Valve The aortic valve is not well visualized. There is mild aortic sclerosis.;. No hemodynamically signifi cant valvular aortic stenosis. Mild aortic regurgitation. Pulmonic Valve The pulmonic valve is not well seen, but is grossly normal. There is no pulmonic valvular stenosis. M ild pulmonic valvular regurgitation. Pericardium/Pleura There is no pericardial effusion. Interpretation Summary The study was technically difficult with many images being suboptimal in quality. Regional wall motion abnormalities cannot be excluded due to limited visualization. Left ventricular systolic function is grossly normal. Ejection Fraction = 50-55%. The right ventricle is not well visualized. There is mild mitral regurgitation. There is mild tricuspid regurgitation. There was insufficient TR detected to calculate RV systolic pressure. The aortic valve is not well visualized. There is mild aortic sclerosis.; Mild aortic regurgitation. MD Solis *Barbara 03/16/2019 01:10 PM
[2019-03-16] MEDS ORDERED: ACETAMINOPHEN 325 MG TABLET (FP) PO PRN (13:28)
[2019-03-16] MEDS ORDERED: CANDESARTAN CILEXETIL 4 MG PO SCH (13:30)
[2019-03-16] MEDS ORDERED: FUROSEMIDE 20 MG TABLET (FP) PO SCH (13:30)
[2019-03-16] MEDS ORDERED: LEVOTHYROXINE SODIUM 175 MCG PO SCH (13:30)
--- NOTE | 2019-03-16 13:31 | EKG ---
Test Reason : Blood Pressure : / mmHG Vent. Rate : 063 BPM Atrial Rate : 063 BPM P-R Int : 186 ms QRS Dur : 104 ms QT Int : 452 ms P-R-T Axes : 052 -23 010 degrees QTc Int : 462 ms NORMAL SINUS RHYTHM VOLTAGE CRITERIA FOR LEFT VENTRICULAR HYPERTROPHY LEFTWARD AXIS ABNORMAL ECG WHEN COMPARED WITH ECG OF 01-MAR-2019 12:18, NO SIGNIFICANT CHANGE WAS FOUND Confirmed by CAMILO MON MD ([id number]) on 03/16/2019 1:30:41 PM Referred By: Confirmed By:CAMILO MON MD
[2019-03-16] MEDS ORDERED: SILODOSIN 8 MG PO SCH (13:45)
[2019-03-16] MEDS ORDERED: hydrALAZINE HCL 50 MG TABLET (FP) PO SCH (14:00)
--- NOTE | 2019-03-16 14:05 | CONSULT ---
Consult - text type - Consultation Consultation Note: Renal consult for LADY This is a 88 year old gentleman with history of CHF, Hypertension, BPH/Urinary retention, CVA/TIA, dementia who presented [place] with shortness of breath and chest pain and noted to have Cr of 2. As per he has no prior history of CKD. He did require urinary catheter for some time to mange urinary retention. Pt denies any chest pain and sob at this time. Reports making urine. No NSAID use or contrast exposure. No flank pain. PMhx: As above Allergies: NKDA Family Hx: NC Social Hx: No T/A/D ROS: as per HPI, all other pertinent ros negative Home Medications Medication Instructions Recorded Acetaminophen [Tylenol] 650 mg PO BID PRN 03/16/19 Bacitracin - [Bacitracin Topical 500 units TP DAILY 03/16/19 Ointment -] Candesartan Cilexetil [Atacand -] 4 mg PO DAILY 03/16/19 Citalopram Hydrobromide [Celexa -] 10 mg PO DAILY 03/16/19 Cyanocobalamin 1,000 mcg PO DAILY 03/16/19 Docusate 100 mg 200 mg PO HS 03/16/19 Eucerin (Small Jar) - 1 applic TP DAILY 03/16/19 Furosemide 60 mg PO DAILY 03/16/19 Levothyroxine Sodium [Levoxyl] 175 mcg PO DAILY 03/16/19 Multivitamin [One-Daily 1 tab PO DAILY 03/16/19 Multi-Vitamin] Pantoprazole Sodium [Protonix] 40 mg PO DAILY 03/16/19 Silodosin 8 mg PO DAILY 03/16/19 Simvastatin 5 mg PO HS 03/16/19 Tamsulosin HCl 0.4 mg PO DAILY 03/16/19 clonazePAM [Klonopin -] 0.25 mg PO HS 03/16/19 hydrALAZINE HCL [Apresoline -] 100 mg PO TID 03/16/19 Vital Signs Temperature 99.1 F 03/15/19 21:00 Pulse Rate 88 03/15/19 21:00 Respiratory Rate 18 03/16/19 09:00 Blood Pressure 95/66 03/15/19 21:00 O2 Sat by Pulse Oximetry (%) 95 03/16/19 09:00 Intake & Output 03/13/19 03/14/19 03/15/1903/16/19 23:59 23:59 23:59 23:59 Intake Total 600 Output Total 700 Balance -100 Weight 68.674 kg NAD awake and alert neck supple RRR CTA soft NT/ND no LE edema CBC, BMP 03/16/19 07:10 03/16/19 07:10 Current Medications Acetaminophen (Tylenol -) 650 mg PO BID PRN PRN Reason: PAIN Atorvastatin Calcium (Lipitor -) 10 mg PO HS [facility] Bacitracin (Bacitracin -) applic TP DAILY [facility] Citalopram Hydrobromide (Celexa -) 10 mg PO DAILY [facility] Clonazepam (Klonopin -) 0.25 mg PO HS [facility] Hydralazine HCl (Apresoline -) 100 mg PO TID [facility] Sodium Chloride (Normal Saline -) 1,000 mls @ 75 mls/hr IV ASDIR [facility] Multivitamins/Minerals/Vitamin C (Tab-A-Vit -) 1 tab PO DAILY [facility] Non-Formulary Medication (Candesartan Cilexetil) 4 mg PO DAILY [facility] Non-Formulary Medication (Cyanocobalamin) 1,000 mcg PO DAILY [facility] Non-Formulary Medication (Docusate 100 Mg) 200 mg PO HS [facility] Non-Formulary Medication (Furosemide) 60 mg PO DAILY [facility] Non-Formulary Medication (Levothyroxine Sodium [Levoxyl]) 175 mcg PO DAILY [facility] Non-Formulary Medication (Silodosin) 8 mg PO DAILY [facility] Non-Formulary Medication (Tamsulosin Hcl) 0.4 mg PO DAILY [facility] Pantoprazole Sodium (Protonix -) 40 mg PO DAILY [facility] 88 year old gentleman with history of CHF, Hypertension, BPH/Urinary retention, CVA/TIA, dementia who [place] with [place]ness of breath and chest pain and noted to have Cr of 2. 1. Acute kidney injury from renal hypoprofusion (hypotension, CHF) vs. normotensive ATN (ARB) vs. retention 2. Chest pain r/o ACS 3. Shortness of breath without gross volume overload 4. Hx of hypertension 5. BPH Check urine studies for FeNa, FeUrea, UPCR, and urine eosniphils Check kidney and bladder US to r/o retention Renal function gradually improving and there no are no overt electrolyte or acid /base abnormalities no acute need for PNEUMATIC PRESS HAND hold ARB and diuretics for now Cardiology follow up BP is marginal, would hold BP meds check PVR on bladder US Trend renal function and electrolytes daily Cam Mckeon DO
--- NOTE | 2019-03-16 14:50 | CON.CARD ---
Cardiology Consult (text) - Consultation Consultation Note: cc: cp hpi: 88 m hx dementia, cva, htn, hld, hypothyroid, dchf sent from [facility] for cp. Pt unable to provide hx due to dementia. Hx from charts, . He was sitting in wheelchair at [facility] and pointed to his right chest and told his he had cp and sob. Sxs resolved in few minutes. Came to er for further eval. Pt unable to give details, denies sxs now. pmh: per hpi psh: thyroid surgery social: no tob fam: unknown ros: unable to obtain 2/2 dementia meds: Home Medications Medication Instructions Recorded Acetaminophen [Tylenol] 650 mg PO BID PRN 03/16/19 Bacitracin - [Bacitracin Topical 500 units TP DAILY 03/16/19 Ointment -] Candesartan Cilexetil [Atacand -] 4 mg PO DAILY 03/16/19 Citalopram Hydrobromide [Celexa -] 10 mg PO DAILY 03/16/19 Cyanocobalamin 1,000 mcg PO DAILY 03/16/19 Docusate 100 mg 200 mg PO HS 03/16/19 Eucerin (Small Jar) - 1 applic TP DAILY 03/16/19 Furosemide 60 mg PO DAILY 03/16/19 Levothyroxine Sodium [Levoxyl] 175 mcg PO DAILY 03/16/19 Multivitamin [One-Daily 1 tab PO DAILY 03/16/19 Multi-Vitamin] Pantoprazole Sodium [Protonix] 40 mg PO DAILY 03/16/19 Silodosin 8 mg PO DAILY 03/16/19 Simvastatin 5 mg PO HS 03/16/19 Tamsulosin HCl 0.4 mg PO DAILY 03/16/19 clonazePAM [Klonopin -] 0.25 mg PO HS 03/16/19 hydrALAZINE HCL [Apresoline -] 100 mg PO TID 03/16/19 pe: Vital Signs Period Temp Pulse Resp BP Sys/[place] Pulse Ox Last 24 Hr 97.5 F-99.1 F 61-88 18-18 95-138/51-69 93-95 nad no jvd rrr s1s2 no mrg cta bl nl eff awake, drowsy, confused no le e/c/c abd nt nd pos bs no jaundice diaphoresis pos dp pt no carotid bruits Laboratory Last Values WBC 5.1 K/mm3 (4.0-10.0) 03/16/19 07:10 RBC 3.90 M/mm3 (4.00-5.60) L 03/16/19 07:10 Hgb 11.6 GM/dL (11.7-16.9) L 03/16/19 07:10 Hct 34.6 % (35.4-49) L 03/16/19 07:10 MCV 88.7 fl (80-96) 03/16/19 07:10 MCH 29.8 pg (25.7-33.7) 03/16/19 07:10 MCHC 33.6 g/dl (32.0-35.9) 03/16/19 07:10 RDW 13.5 % (11.9-15.9) 03/16/19 07:10 Plt Count 233 K/MM3 (134-434) 03/16/19 07:10 MPV 8.7 fl (7.5-11.1) 03/16/19 07:10 Absolute Neuts (auto) 2.2 K/mm3 (1.5-8.0) 03/15/19 17:14 Neutrophils % 59.4 % (42.8-82.8) 03/15/19 17:14 Lymphocytes % 23.1 % (8-40) 03/15/19 17:14 Monocytes % 12.8 % (3.8-10.2) H 03/15/19 17:14 Eosinophils % 3.6 % (0-4.5) 03/15/19 17:14 Basophils % 1.1 % (0-2.0) 03/15/19 17:14 Nucleated RBC % 0 % (0-0) 03/15/19 17:14 PT with INR 13.10 SEC (9.7-13.0) H 03/15/19 17:14 INR 1.11 (0.83-1.09) H 03/15/19 17:14 Sodium 138 mmol/L (136-145) 03/16/19 07:10 Potassium 4.4 mmol/L (3.5-5.1) 03/16/19 07:10 Chloride 105 mmol/L (98-107) 03/16/19 07:10 Carbon Dioxide 26 mmol/L (21-32) 03/16/19 07:10 Anion Gap 7 MMOL/L (8-16) L 03/16/19 07:10 BUN 31.1 mg/dL (7-18) H 03/16/19 07:10 Creatinine 1.7 mg/dL (0.55-1.3) H 03/16/19 07:10 Est GFR (CKD-EPI)AfAm 40.54 03/16/19 07:10 Est GFR (CKD-EPI)NonAf 34.98 03/16/19 07:10 Random Glucose 91 mg/dL (74-106) 03/16/19 07:10 Calcium 8.6 mg/dL (8.5-10.1) 03/16/19 07:10 Total Bilirubin 0.5 mg/dL (0.2-1) 03/16/19 07:10 AST 13 U/L (15-37) L 03/16/19 07:10 ALT 15 U/L (13-61) 03/16/19 07:10 Alkaline Phosphatase 74 U/L (45-117) 03/16/19 07:10 Creatine Kinase 68 U/L (26-308) 03/15/19 17:14 Troponin I < 0.02 ng/ml (0.00-0.05) 03/15/19 20:41 B-Natriuretic Peptide 542.5 pg/ml (5-450) H 03/15/19 20:41 Total Protein 6.4 g/dl (6.4-8.2) 03/16/19 07:10 Albumin 3.4 g/dl (3.4-5.0) 03/16/19 07:10 Urine Color Yellow 03/15/19 17:14 Urine Appearance Clear 03/15/19 17:14 Urine pH 5.5 (5.0-8.0) D 03/15/19 17:14 Ur Specific [place] 1.013 (1.010-1.035) 03/15/19 17:14 Urine Protein Negative (NEGATIVE) 03/15/19 17:14 Urine Glucose (UA) Negative (NEGATIVE) 03/15/19 17:14 Urine Ketones Negative (NEGATIVE) 03/15/19 17:14 Urine Blood Negative (NEGATIVE) 03/15/19 17:14 Urine Nitrite Negative (NEGATIVE) 03/15/19 17:14 Urine Bilirubin Negative (NEGATIVE) 03/15/19 17:14 Urine Urobilinogen 0.2 mg/dL (0.2-1.0) 03/15/19 17:14 Ur Leukocyte Esterase Negative (NEGATIVE) 03/15/19 17:14 Urine Osmolality 428 mosm/kg (300-900) 03/16/19 00:14 Ur Random Sodium 111 MMOL/L (40-220) 03/16/19 00:14 Ur Random Potassium 28.0 MMOL/L (25-125) 03/16/19 00:14 Ur Random Chloride 125 MMOL/L (110-250) 03/16/19 00:14 echo 02/2019: tds; nl lv, rv tds, mild mr/tr/ar ecg: sr lvh, no ischemic changes cxr: clear lungs a/p: 88 m hx dementia, cva, htn, hld, hypothyroid, dchf sent from [facility] for cp. cp, sob: -history unclear, pt denies sxs now -no signs chf, acs -trops negx2, ecg and echo unremarkable -monitor for recurrence htn: -stable on current meds hld: -cont statin nena: -holding arb, lasix -monitor cr, improved today -renal following chronic diastolic chf: -no signs vol overload -resume maintenance lasix when nena resolved -echo here unremarkable
[2019-03-16] MEDS: CYANOCOBALAMIN 1,000 MCG TABLET (FP) PO SCH (17:08)
[2019-03-16] MEDS: CITALOPRAM HYDROBROMIDE 10 MG TABLET (FP) PO SCH (17:08)
[2019-03-16] MEDS: BACITRACIN 15 GM TUBE TOPICAL OINTMENT TP SCH (17:08)
[2019-03-16] MEDS: MULTIVITAMINS (DAILY MVI) TABLET (FP) PO SCH (17:08)
[2019-03-16] MEDS: PANTOPRAZOLE 40 MG TABLET (FP) PO SCH (17:08)
[2019-03-16] MEDS ORDERED: amLODIPine BESYLATE 5 MG TABLET (FP) PO ONE (18:00)
--- NOTE | 2019-03-16 20:38 | HP ---
Admitting History and Physical - Primary Care Physician PCP: Darshan Langley - Admission Chief Complaint: CP History of Present Illness: Pt is a resident of [facility] that developed CP and SOB; his requested transfer to hospital. In ER pt was found to be in ARF, was started on IVF. While on the floor I ordered bedside bladder scan which was positive for urinary retention (over 450 ml); I ordered Dickens insertion. 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 Cardiovascular: Yes: HTN Renal/: Yes: BPH Heme/Onc: Yes: Cancer (thyroid) Endocrine: Yes: Hypothyroidism - Past Surgical History Additional Past Surgical History: thyroidectomy - Advance Directives Advance Directives: Yes: Health Care Proxy, DNR, MOLST - Smoking History Smoking history: Never smoked Have you smoked in the past 12 months: No - Alcohol/Substance Use Hx Alcohol Use: No Home Medications - Allergies Allergies/Adverse Reactions: Allergies Allergy/AdvReac Type Severity Reaction Status Date / Time ramipril Allergy Verified 03/15/19 16:21 - Home Medications Home Medications: Ambulatory Orders Acetaminophen [Tylenol] 650 mg PO BID PRN 03/16/19 Bacitracin - [Bacitracin Topical Ointment -] 500 units TP DAILY 03/16/19 Candesartan Cilexetil [Atacand -] 4 mg PO DAILY 03/16/19 Citalopram Hydrobromide [Celexa -] 10 mg PO DAILY 03/16/19 Cyanocobalamin 1,000 mcg PO DAILY 03/16/19 Docusate 100 mg 200 mg PO HS 03/16/19 Eucerin (Small Jar) - 1 applic TP DAILY 03/16/19 Furosemide 60 mg PO DAILY 03/16/19 Levothyroxine Sodium [Levoxyl] 175 mcg PO DAILY 03/16/19 Multivitamin [One-Daily Multi-Vitamin] 1 tab PO DAILY 03/16/19 Pantoprazole Sodium [Protonix] 40 mg PO DAILY 03/16/19 Silodosin 8 mg PO DAILY 03/16/19 Simvastatin 5 mg PO HS 03/16/19 Tamsulosin HCl 0.4 mg PO DAILY 03/16/19 clonazePAM [Klonopin -] 0.25 mg PO HS 03/16/19 hydrALAZINE HCL [Apresoline -] 100 mg PO TID 03/16/19 Review of Systems Findings/Remarks: Limited ROS secondary to dementia - Review of Systems Constitutional: denies: Chills, Fever Eyes: denies: Blurred Vision, Double Vision HENT: denies: Nasal Congestion, Throat Pain Neck: denies: Stiffness, Tenderness Cardiovascular: denies: Chest Pain, Palpitations Respiratory: denies: Cough, SOB Gastrointestinal: reports: Vomiting. denies: Abdominal Pain, Nausea Genitourinary: denies: Burning, Discharge Musculoskeletal: denies: Back Pain, Joint Pain Neurological: denies: Numbness, Weakness Physical Examination Vital Signs: Vital Signs Temperature 98.7 F 03/16/19 19:36 Pulse Rate 82 03/16/19 19:36 Respiratory Rate 18 03/16/19 15:25 Blood Pressure 159/113 H 03/16/19 19:36 O2 Sat by Pulse Oximetry (%) 95 03/16/19 09:00 Constitutional: Yes: No Distress, Other (trying to remove Dickens catheter) Eyes: Yes: Tearing. No: Sclera Icterus HENT: Yes: Epistaxis, Rhinnorhea Neck: Yes: Trachea Midline, Lymphadenopathy Cardiovascular: Yes: Regular Rate and Rhythm, S1, S2 Respiratory: Yes: Regular, CTA Bilaterally. No: Rales Gastrointestinal: Yes: Normal Bowel Sounds, Soft. No: Vomiting ...Rectal Exam: Yes: Deferred Renal/: Yes: Dickens Present. No: Bladder Distention Musculoskeletal: No: Joint Stiffness, Joint Swelling Extremities: No: Cool, Cyanosis Edema: LUE: Trace Neurological: Yes: Alert, Oriented (his ) Psychiatric: Yes: Alert Labs: CBC, BMP 03/16/19 07:10 03/16/19 07:10 Imaging - Results Chest X-ray: Report Reviewed Problem List - Problems (1) Chest pain Code(s): R07.9 - CHEST PAIN, UNSPECIFIED (2) LADY (acute kidney injury) Code(s): N17.9 - ACUTE KIDNEY FAILURE, UNSPECIFIED (3) HTN (hypertension) Code(s): I10 - ESSENTIAL (PRIMARY) HYPERTENSION (4) Dementia Code(s): F03.90 - UNSPECIFIED DEMENTIA WITHOUT BEHAVIORAL DISTURBANCE (5) BPH (benign prostatic hyperplasia) Code(s): N40.0 - BENIGN PROSTATIC HYPERPLASIA WITHOUT LOWER URINRY TRACT SYMP Assessment/Plan Cardio Consult Renal Consult consult Maintain Dickens for now IVF ECHO AM labs
[2019-03-16] MEDS: DOCUSATE SODIUM 100 MG CAPSULE (FP) PO SCH (22:12)
[2019-03-16] MEDS: clonazePAM 0.5 MG TABLET PO SCH (22:12)
[2019-03-16] MEDS: ATORVASTATIN CA 10 MG TABLET (FP) PO SCH (22:12)
[2019-03-16] MEDS: hydrALAZINE HCL 50 MG TABLET (FP) PO SCH (22:12)
[2019-03-16] MEDS: SODIUM CHLORIDE 1,000 ML IV SCH (23:30)
[2019-03-17] MEDS ORDERED: LEVOTHYROXINE NA 100 MCG TABLET (FP) ONE (06:09)
[2019-03-17] MEDS ORDERED: LEVOTHYROXINE NA 75 MCG TABLET (FP) ONE (06:09)
[2019-03-17] MEDS: LEVOTHYROXINE 100 MCG, LEVOTHYROXINE 75 MCG PO SCH (06:43)
[2019-03-17] MEDS: hydrALAZINE HCL 50 MG TABLET (FP) PO SCH ×3 (06:43→22:06)
[2019-03-17 08:11] LABS: HEMATOCRIT 35.1 % (35.4-49); HEMOGLOBIN 11.7 GM/dL (11.7-16.9); MCH 29.7 pg (25.7-33.7); MCHC 33.4 g/dl (32.0-35.9); MEAN CELL VOLUME 88.9 fl (80-96); MEAN PLT VOLUME 8.5 fl (7.5-11.1); PLATELET COUNT 231 K/MM3 (134-434); RBC 3.95 M/mm3 (4.00-5.60); RDW 12.9 % (11.9-15.9)
[2019-03-17 08:37] LABS: ALBUMIN 3.2 g/dl (3.4-5.0); BILIRUBIN,TOTAL 0.6 mg/dL (0.2-1); BLOOD UREA NITROGEN 21.1 mg/dL (7-18); CALCIUM 8.7 mg/dL (8.5-10.1); CREATININE 1.2 mg/dL (0.55-1.3); POTASSIUM 4.2 mmol/L (3.5-5.1)
[2019-03-17] MEDS: MULTIVITAMINS (DAILY MVI) TABLET (FP) PO SCH (09:27)
[2019-03-17] MEDS: PANTOPRAZOLE 40 MG TABLET (FP) PO SCH (09:27)
[2019-03-17] MEDS: CITALOPRAM HYDROBROMIDE 10 MG TABLET (FP) PO SCH (09:27)
[2019-03-17] MEDS: TAMSULOSIN HCL 0.4 MG CAP PO SCH (09:27)
[2019-03-17] MEDS: BACITRACIN 15 GM TUBE TOPICAL OINTMENT TP SCH (09:28)
[2019-03-17] MEDS ORDERED: PT OWN MED DRAWER 7, Y5N ONE (09:31)
[2019-03-17] MEDS: CYANOCOBALAMIN 1,000 MCG TABLET (FP) PO SCH (09:33)
--- NOTE | 2019-03-17 09:42 | PN ---
Progress Note, Physician Chief Complaint: cp History of Present Illness: pt agitated, confused. wrist and dia restraints on. awake, greets me but resists being examined and cannot give any meaningful history responses calm presently - Current Medication List Current Medications: Active Medications Acetaminophen (Tylenol -) 650 mg PO BID PRN PRN Reason: PAIN Atorvastatin Calcium (Lipitor -) 10 mg PO HS [facility] Last Admin: 03/16/19 22:12 Dose: 10 mg Bacitracin (Bacitracin -) 1 applic TP DAILY [facility] Last Admin: 03/17/19 09:28 Dose: 1 applic Citalopram Hydrobromide (Celexa -) 10 mg PO DAILY [facility] Last Admin: 03/17/19 09:27 Dose: 10 mg Clonazepam (Klonopin -) 0.25 mg PO [facility] Last Admin: 03/16/19 22:12 Dose: 0.25 mg Cyanocobalamin (Vitamin B12 -) 1,000 mcg PO DAILY [facility] Last Admin: 03/17/19 09:33 Dose: 1,000 mcg Docusate Sodium (Colace -) 200 mg PO [facility] Last Admin: 03/16/19 22:12 Dose: 200 mg Hydralazine HCl (Apresoline -) 100 mg PO TID [facility] Last Admin: 03/17/19 06:43 Dose: 100 mg Sodium Chloride (Normal Saline -) 1,000 mls @ 75 mls/hr IV ASDIR [facility] Last Admin: 03/16/19 23:30 Dose: Not Given Levothyroxine Sodium 100 mcg/ (Levothyroxine Sodium 75 mcg) 175 mcg PO DAILY@ 0700 [facility] Last Admin: 03/17/19 06:43 Dose: 175 mcg Multivitamins/Minerals/Vitamin C (Tab-A-Vit -) 1 tab PO DAILY [facility] Last Admin: 03/17/19 09:27 Dose: 1 tab Non-Formulary Medication (Silodosin) 8 mg PO DAILY [facility] Pantoprazole Sodium (Protonix -) 40 mg PO DAILY [facility] Last Admin: 03/17/19 09:27 Dose: 40 mg Tamsulosin HCl (Flomax -) 0.4 mg PO DAILY@0830 [facility] Last Admin: 03/17/19 09:27 Dose: 0.4 mg - Objective Vital Signs: Vital Signs Temperature 98 F 03/17/19 07:46 Pulse Rate 63 03/17/19 07:46 Respiratory Rate 20 03/17/19 07:46 Blood Pressure 111/62 03/17/19 07:46 O2 Sat by Pulse Oximetry (%) 95 03/16/19 21:00 Constitutional: Yes: Well Nourished, No Distress, Calm Cardiovascular: Yes: Regular Rate and Rhythm, S1, S2 ((exam limited by pt pushing me away)). No: Gallop, Murmur Respiratory: Yes: Regular, CTA Bilaterally (anteriorly (not deep breaths)) Extremities: No: Cold Edema: No Neurological: Yes: Alert. No: Oriented Psychiatric: No: Agitated Labs: CBC, BMP 03/17/19 07:10 03/17/19 07:10 INR, PTT INR 1.11 (0.83-1.09) H 03/15/19 17:14 Assessment/Plan echo 02/2019: tds; nl lv, rv tds, mild mr/tr/ar ecg: sr lvh, no ischemic changes cxr: clear lungs a/p: 88 m hx dementia, cva, htn, hld, hypothyroid, dchf sent from [place] for cp. cp, sob: -history unclear, pt denies sxs now -no signs chf, acs -trops neg x2, ecg and echo unremarkable -monitor for recurrence htn: -stable on current meds hld: -cont statin nena: -held arb, lasix -creat back to baseline -renal following chronic diastolic chf: -no signs vol overload -suspect was dry (prerenal labs) on admit -no sob. appears euvolemic--cont holding lasix for now -echo here unremarkable
[2019-03-17] MEDS: SODIUM CHLORIDE 1,000 ML IV SCH (09:55)
--- NOTE | 2019-03-17 10:17 | PN ---
Progress Note, Physician Chief Complaint: in bed awake alert but confused (at baseline) occ agitated needs vest for falls PFX chart meds tests reviewed - Current Medication List Current Medications: Active Medications Acetaminophen (Tylenol -) 650 mg PO BID PRN PRN Reason: PAIN Atorvastatin Calcium (Lipitor -) [address] [facility] Last Admin: 03/16/19 22:12 Dose: 10 mg Bacitracin (Bacitracin -) [address] [facility] Last Admin: 03/17/19 09:28 Dose: 1 applic Citalopram Hydrobromide (Celexa -) [address] [facility] Last Admin: 03/17/19 09:27 Dose: 10 mg Clonazepam (Klonopin -) 0.[address] [facility] Last Admin: 03/16/19 22:12 Dose: 0.25 mg Cyanocobalamin (Vitamin B12 -) 1,[address] [facility] Last Admin: 03/17/19 09:33 Dose: 1,000 mcg Docusate Sodium (Colace -) [address] [facility] Last Admin: 03/16/19 22:12 Dose: 200 mg Hydralazine HCl (Apresoline -) [address] [facility] Last Admin: 03/17/19 06:43 Dose: 100 mg Sodium Chloride (Normal Saline -) 1,000 mls @ 75 mls/hr IV ASDIR [facility] Last Admin: 03/17/19 09:55 Dose: 75 mls/hr Levothyroxine Sodium 100 mcg/ (Levothyroxine Sodium 75 mcg) 175 mcg PO DAILY@ 0700 [facility] Last Admin: 03/17/19 06:43 Dose: 175 mcg Multivitamins/Minerals/Vitamin C (Tab-A-Vit -) [address] [facility] Last Admin: 03/17/19 09:27 Dose: 1 tab Non-Formulary Medication (Silodosin) [address] [facility] Pantoprazole Sodium (Protonix -) [address] [facility] Last Admin: 03/17/19 09:27 Dose: 40 mg Tamsulosin HCl (Flomax -) 0.4 mg PO DAILY@0830 [facility] Last Admin: 03/17/19 09:27 Dose: 0.4 mg - Objective Vital Signs: Vital Signs Temperature 97.9 F 03/17/19 09:43 Pulse Rate 69 03/17/19 09:43 Respiratory Rate 19 03/17/19 09:43 Blood Pressure 116/53 L 03/17/19 09:43 O2 Sat by Pulse Oximetry (%) 93 L 03/17/19 09:00 Constitutional: Yes: No Distress, Calm Eyes: Yes: Conjunctiva Clear HENT: Yes: Atraumatic Neck: Yes: Supple Cardiovascular: Yes: Regular Rate and Rhythm Respiratory: Yes: Diminished Gastrointestinal: Yes: Soft. No: Tenderness Genitourinary: Yes: Dickens Present. No: Hematuria Musculoskeletal: No: Joint Stiffness, Joint Swelling Edema: No Integumentary: No: Rash Neurological: Yes: Alert ...Motor Strength: WNL Psychiatric: Yes: Alert Labs: CBC, BMP 03/17/19 07:10 03/17/19 07:10 INR, PTT INR 1.11 (0.83-1.09) H 03/15/19 17:14 - ....Imaging Other: Report Reviewed Assessment/Plan 88Y M with PMH of CVA/TIA 2018, HTN, CHF, HTN, BPJ, Cardiomyopathy, Thyroid ca s /p thyroidectomy, Dementia, Anxiety presenting to ED with complaints of chest pain and SOB . Found to be in ARF urinary obstruction US c/w severe BPH. seen by cardiology; Dickens in; renal and eval falls decubs aspiration DVT pfx d/w staff
--- NOTE | 2019-03-17 16:54 | PN ---
Progress Note, Physician History of Present Illness: Pt seen and examined at bedside. He remains lethargic. Family at bedside and care discussed with them. - Current Medication List Current Medications: Active Medications Acetaminophen (Tylenol -) 650 mg PO BID PRN PRN Reason: PAIN Atorvastatin Calcium (Lipitor -) 10 mg PO HS [facility] Last Admin: 03/16/19 22:12 Dose: 10 mg Bacitracin (Bacitracin -) 1 applic TP DAILY [facility] Last Admin: 03/17/19 09:28 Dose: 1 applic Citalopram Hydrobromide (Celexa -) 10 mg PO DAILY [facility] Last Admin: 03/17/19 09:27 Dose: 10 mg Clonazepam (Klonopin -) 0.25 mg PO HS [facility] Last Admin: 03/16/19 22:12 Dose: 0.25 mg Cyanocobalamin (Vitamin B12 -) 1,000 mcg PO DAILY [facility] Last Admin: 03/17/19 09:33 Dose: 1,000 mcg Docusate Sodium (Colace -) 200 mg PO HS [facility] Last Admin: 03/16/19 22:12 Dose: 200 mg Heparin Sodium (Porcine) (Heparin -) 5,000 unit SQ BID [facility] Hydralazine HCl (Apresoline -) 100 mg PO TID [facility] Last Admin: 03/17/19 15:00 Dose: 100 mg Sodium Chloride (Normal Saline -) 1,000 mls @ 75 mls/hr IV ASDIR [facility] Last Admin: 03/17/19 09:55 Dose: 75 mls/hr Levothyroxine Sodium 100 mcg/ (Levothyroxine Sodium 75 mcg) 175 mcg PO DAILY@ 0700 [facility] Last Admin: 03/17/19 06:43 Dose: 175 mcg Multivitamins/Minerals/Vitamin C (Tab-A-Vit -) 1 tab PO DAILY [facility] Last Admin: 03/17/19 09:27 Dose: 1 tab Non-Formulary Medication (Silodosin) 8 mg PO DAILY [facility] Pantoprazole Sodium (Protonix -) 40 mg PO DAILY [facility] Last Admin: 03/17/19 09:27 Dose: 40 mg Tamsulosin HCl (Flomax -) 0.4 mg PO DAILY@0830 [facility] Last Admin: 03/17/19 09:27 Dose: 0.4 mg - Objective Vital Signs: Vital Signs Temperature 98.3 F 03/17/19 15:06 Pulse Rate 68 10/26/19 15:06 Respiratory Rate 20 03/17/19 15:06 Blood Pressure 130/54 L 03/17/19 15:06 O2 Sat by Pulse Oximetry (%) 93 L 03/17/19 09:00 Constitutional: Yes: Calm Eyes: Yes: Conjunctiva Clear HENT: Yes: Atraumatic Neck: Yes: Supple Cardiovascular: Yes: S1, S2 Respiratory: Yes: CTA Bilaterally Gastrointestinal: Yes: Soft Genitourinary: Yes: Dickens Present Musculoskeletal: Yes: Muscle Weakness Edema: No Integumentary: Yes: WNL Neurological: Yes: Lethargy Labs: CBC, BMP 03/17/19 07:10 03/17/19 07:10 INR, PTT INR 1.11 (0.83-1.09) H 03/15/19 17:14 Assessment/Plan Current Medications Generic Name Dose Route Start Last Admin Trade Name Freq PRN Reason Stop Dose Admin Acetaminophen 650 mg 03/16/19 13:28 Tylenol - PO BID PRN PAIN Atorvastatin Calcium 10 mg 03/16/19 22:00 03/16/19 22:12 Lipitor - PO 10 mg HS [facility] Administration Bacitracin 1 applic 03/16/19 13:30 03/17/19 09:28 Bacitracin - TP 1 applic DAILY [facility] Administration Citalopram Hydrobromide 10 mg 03/16/19 13:30 03/17/19 09:27 Celexa - PO 10 mg DAILY [facility] Administration Clonazepam 0.25 mg 03/16/19 22:00 03/16/19 22:12 Klonopin - PO 0.25 mg HS [facility] Administration Cyanocobalamin 1,000 mcg 03/16/19 13:30 03/17/19 09:33 Vitamin B12 - PO 1,000 mcg DAILY [facility] Administration Docusate Sodium 200 mg 03/16/19 22:00 03/16/19 22:12 Colace - PO 200 mg HS [facility] Administration Heparin Sodium (Porcine) 5,000 unit 03/17/19 22:00 Heparin - SQ BID [facility] Hydralazine HCl 100 mg 03/16/19 14:39 03/17/19 15:00 Apresoline - PO 100 mg TID [facility] Administration Sodium Chloride 1,000 mls @ 75 mls/hr 03/15/19 23:30 03/17/19 09:55 Normal Saline - IV 75 mls/hr ASDIR [facility] Administration Levothyroxine Sodium 100 mcg/ 175 mcg 03/17/19 07:00 03/17/19 06:43 Levothyroxine Sodium 75 mcg PO 175 mcg DAILY@0700 [facility] Administration Multivitamins/Minerals/Vitamin C 1 tab 03/16/19 13:30 03/17/19 09:27 Tab-A-Vit - PO 1 tab DAILY [facility] Administration Non-Formulary Medication 8 mg 03/16/19 13:45 Silodosin PO DAILY [facility] Pantoprazole Sodium 40 mg 03/16/19 13:30 03/17/19 09:27 Protonix - PO 40 mg DAILY [facility] Administration Tamsulosin HCl 0.4 mg 03/17/19 08:30 03/17/19 09:27 Flomax - PO 0.4 mg DAILY@0830 [facility] Administration Laboratory Tests 03/15/19 03/16/19 17:14 16:40 Urine Protein Negative Urine Blood Negative Urine Eosinophils Pending 1. LADY 2. Chest pain r/o ACS 3. Shortness of breath without gross volume overload 4. Hx of hypertension 5. 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
[2019-03-17] MEDS: DEXTROSE 5%-NORMAL SALINE 1,000 ML IV SCH (17:40)
--- NOTE | 2019-03-17 20:12 | CON.GU ---
Consult - History of Present Illness History of Present Illness: 88 yo male, h/o BPH, resident at [facility], admitted for SOB, CP. 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 Cardio/Vascular: Yes: HTN Renal/: Yes: BPH Endocrine: Yes: Hypothyroidism - Alcohol/Substance Use Hx Alcohol Use: No - Smoking History Smoking history: Never smoked Have you smoked in the past 12 months: No Home Medications - Allergies Allergies/Adverse Reactions: Allergies Allergy/AdvReac Type Severity Reaction Status Date / Time ramipril Allergy Verified 03/15/19 16:21 - Home Medications Home Medications: Ambulatory Orders Acetaminophen [Tylenol] 650 mg PO BID PRN 03/16/19 Bacitracin - [Bacitracin Topical Ointment -] 500 units TP DAILY 03/16/19 Candesartan Cilexetil [Atacand -] 4 mg PO DAILY 03/16/19 Citalopram Hydrobromide [Celexa -] 10 mg PO DAILY 03/16/19 Cyanocobalamin 1,000 mcg PO DAILY 03/16/19 Docusate 100 mg 200 mg PO HS 03/16/19 Eucerin (Small Jar) - 1 applic TP DAILY 03/16/19 Furosemide 60 mg PO DAILY 03/16/19 Levothyroxine Sodium [Levoxyl] 175 mcg PO DAILY 03/16/19 Multivitamin [One-Daily Multi-Vitamin] 1 tab PO DAILY 03/16/19 Pantoprazole Sodium [Protonix] 40 mg PO DAILY 03/16/19 Silodosin 8 mg PO DAILY 03/16/19 Simvastatin 5 mg PO HS 03/16/19 Tamsulosin HCl 0.4 mg PO DAILY 03/16/19 clonazePAM [Klonopin -] 0.25 mg PO HS 03/16/19 hydrALAZINE HCL [Apresoline -] 100 mg PO TID 03/16/19 Review of Systems - Review of Systems Genitourinary: reports: Other (no hematuria) Physical Exam- Vital Signs: Vital Signs Temperature 98.3 F 03/17/19 15:06 Pulse Rate 68 03/17/19 15:06 Respiratory Rate 20 03/17/19 15:06 Blood Pressure 130/54 L 03/17/19 15:06 O2 Sat by Pulse Oximetry (%) 93 L 03/17/19 09:00 Renal/: Yes: Cole Present Labs: CBC, BMP 03/17/19 07:10 03/17/19 07:10 Imaging - Results Ultrasound: Report Reviewed Problem List - Problems (1) BPH (benign prostatic hyperplasia) Assessment/Plan: on flomax, creat now normal, d/c cole in am for voiding trial Code(s): N40.0 - BENIGN PROSTATIC HYPERPLASIA WITHOUT LOWER URINRY TRACT SYMP
[2019-03-17] MEDS: clonazePAM 0.5 MG TABLET PO SCH (22:05)
[2019-03-17] MEDS: DOCUSATE SODIUM 100 MG CAPSULE (FP) PO SCH (22:06)
[2019-03-17] MEDS: ATORVASTATIN CA 10 MG TABLET (FP) PO SCH (22:06)
[2019-03-17] MEDS: HEPARIN NA (PORCINE) 5,000 UNITS/ML 1ML VIAL SQ SCH (22:06)
[2019-03-18] MEDS ORDERED: LEVOTHYROXINE NA 75 MCG TABLET (FP) ONE (06:06)
[2019-03-18] MEDS ORDERED: LEVOTHYROXINE NA 100 MCG TABLET (FP) ONE (06:07)
[2019-03-18] MEDS: hydrALAZINE HCL 50 MG TABLET (FP) PO SCH ×3 (06:24→23:54)
[2019-03-18] MEDS: LEVOTHYROXINE 100 MCG, LEVOTHYROXINE 75 MCG PO SCH (06:24)
[2019-03-18] MEDS: DEXTROSE 5%-NORMAL SALINE 1,000 ML IV SCH ×2 (06:26→18:27)
[2019-03-18 08:20] LABS: ALBUMIN 2.7 g/dl (3.4-5.0); BILIRUBIN,TOTAL 0.4 mg/dL (0.2-1); BLOOD UREA NITROGEN 18.7 mg/dL (7-18); CALCIUM 8.3 mg/dL (8.5-10.1); CREATININE 1.1 mg/dL (0.55-1.3); POTASSIUM 4.1 mmol/L (3.5-5.1); TOT PROT 5.4 g/dl (6.4-8.2)
[2019-03-18] MEDS: TAMSULOSIN HCL 0.4 MG CAP PO SCH (09:45)
[2019-03-18] MEDS: CITALOPRAM HYDROBROMIDE 10 MG TABLET (FP) PO SCH (09:45)
[2019-03-18] MEDS: MULTIVITAMINS (DAILY MVI) TABLET (FP) PO SCH (09:46)
[2019-03-18] MEDS: PANTOPRAZOLE 40 MG TABLET (FP) PO SCH (09:46)
[2019-03-18] MEDS: CYANOCOBALAMIN 1,000 MCG TABLET (FP) PO SCH (09:47)
--- NOTE | 2019-03-18 09:53 | PN ---
Progress Note, Physician Chief Complaint: alert but not opening his eyes (not new, did this before); no appetite; had fever 103 - Current Medication List Current Medications: Active Medications Acetaminophen (Tylenol -) 650 mg PO BID PRN PRN Reason: PAIN Atorvastatin Calcium (Lipitor -) 10 mg PO HS [facility] Last Admin: 03/17/19 22:06 Dose: 10 mg Bacitracin (Bacitracin -) 1 applic TP DAILY [facility] Last Admin: 03/17/19 09:28 Dose: 1 applic Citalopram Hydrobromide (Celexa -) 10 mg PO DAILY [facility] Last Admin: 03/18/19 09:45 Dose: Not Given Clonazepam (Klonopin -) 0.25 mg PO HS [facility] Last Admin: 03/17/19 22:05 Dose: 0.25 mg Cyanocobalamin (Vitamin B12 -) 1,000 mcg PO DAILY [facility] Last Admin: 03/18/19 09:47 Dose: Not Given Docusate Sodium (Colace -) 200 mg PO [facility] Last Admin: 03/17/19 22:06 Dose: 200 mg Heparin Sodium (Porcine) (Heparin -) 5,000 unit SQ BID [facility] Last Admin: 03/17/19 22:06 Dose: 5,000 unit Hydralazine HCl (Apresoline -) 100 mg PO TID [facility] Last Admin: 03/18/19 06:24 Dose: 100 mg Dextrose/Sodium Chloride (D5-Ns -) 1,000 mls @ 83 mls/hr IV ASDIR [facility] Last Admin: 03/18/19 06:26 Dose: 83 mls/hr Levothyroxine Sodium 100 mcg/ (Levothyroxine Sodium 75 mcg) 175 mcg PO DAILY@ 0700 [facility] Last Admin: 03/18/19 06:24 Dose: 175 mcg Multivitamins/Minerals/Vitamin C (Tab-A-Vit -) 1 tab PO DAILY [facility] Last Admin: 03/18/19 09:46 Dose: Not Given Pantoprazole Sodium (Protonix -) 40 mg PO DAILY [facility] Last Admin: 03/18/19 09:46 Dose: Not Given Tamsulosin HCl (Flomax -) 0.4 mg PO DAILY@0830 [facility] Last Admin: 03/18/19 09:45 Dose: Not Given - Objective Vital Signs: Vital Signs Temperature 103.0 F H 10/27/19 09:22 Pulse Rate 80 03/18/19 09:22 Respiratory Rate 21 H 03/18/19 09:22 Blood Pressure 152/49 L 03/18/19 09:22 O2 Sat by Pulse Oximetry (%) 96 03/17/19 21:00 Constitutional: Yes: No Distress Eyes: Yes: Conjunctiva Clear HENT: Yes: Atraumatic Neck: Yes: Supple Cardiovascular: Yes: Regular Rate and Rhythm Respiratory: Yes: Diminished Gastrointestinal: Yes: Soft. No: Tenderness Genitourinary: No: Hematuria Musculoskeletal: No: Joint Stiffness, Joint Swelling Extremities: No: Cold, Cool, Cyanosis Edema: No Integumentary: No: Rash, Venous Stasis Changes Neurological: Yes: Alert Psychiatric: Yes: Alert. No: Agitated Labs: CBC, BMP 03/17/19 07:10 03/18/19 07:23 INR, PTT INR 1.11 (0.83-1.09) H 03/15/19 17:14 - ....Imaging Other: Report Reviewed Assessment/Plan 88Y M with PMH of CVA/TIA 2018, HTN, CHF, HTN, BPJ, Cardiomyopathy, Thyroid ca s /p thyroidectomy, Dementia, Anxiety presenting to ED with complaints of chest pain and SOB . Found to be in ARF urinary obstruction US c/w severe BPH. seen by cardiology; Dickens in; renal and eval; seen by SUKHDEV Dickens and observe r/o retention; fever - d/w ID dr Peralta cultures sent ATB per ID falls decubs aspiration DVT pfx d/w staff, will call pt's - prognosis guarded
[2019-03-18] MEDS ORDERED: CEFTRIAXONE 1 GM in SODIUM CHLORIDE 50 ML IVPB SCH (10:00)
[2019-03-18 10:34] LABS: BASO % 0.4 % (0-2.0); EOS % 0.3 % (0-4.5); HEMATOCRIT 32.6 % (35.4-49); HEMOGLOBIN 10.7 GM/dL (11.7-16.9); LYMPH % 1.4 % (8-40); MCH 29.2 pg (25.7-33.7); MCHC 32.8 g/dl (32.0-35.9); MEAN PLT VOLUME 7.8 fl (7.5-11.1); MONO % 1.8 % (3.8-10.2); NEUT % 96.1 % (42.8-82.8); PLATELET COUNT 203 K/MM3 (134-434); RBC 3.67 M/mm3 (4.00-5.60); RDW 13.3 % (11.9-15.9); WHITE BLOOD COUNT 6.5 K/mm3 (4.0-10.0)
[2019-03-18] MEDS: HEPARIN NA (PORCINE) 5,000 UNITS/ML 1ML VIAL SQ SCH ×2 (10:48→23:54)
[2019-03-18] MEDS: BACITRACIN 15 GM TUBE TOPICAL OINTMENT TP SCH (10:48)
[2019-03-18] MEDS ORDERED: cefTRIAXone SODIUM 1 GM VIAL ONE ×3 (12:03→12:59)
[2019-03-18] MEDS ORDERED: SODIUM CHLORIDE 50 ML IVPB ONE ×3 (12:05→12:59)
[2019-03-18 13:46] LABS: ANISOCYTOSIS 1+; MACROCYTOSIS 0; PLATELET ESTIMATE NORMAL
--- NOTE | 2019-03-18 13:53 | PN ---
Progress Note (short form) - Note Progress Note: ID CONSULT DICTATED HIGH GRADE FEVER R/O SEPSIS SECONDARY TO SOURCE GROSS HEMATURIA URINARY RETENTION AWAIT C/S EMPIRIC ZOSYN EVALUATION DISCUSSED WITH
--- NOTE | 2019-03-18 14:39 | CONS ---
DATE OF CONSULTATION: DATE OF DICTATION: Camilo Peralta MD The patient is an 88-year-old male who is evaluated for sepsis. History was obtained from the chart as well as patient's , who was present at the time of the examination. He was admitted from the care home on March 15, 2019, with chest pain syndrome and shortness of breath. Patient was found to have acute kidney injury, possibly secondary to acute urinary retention. Dickens catheter was placed. The catheter was removed earlier today and trial of voiding observed. The patient had apparently been pulling at his Dickens catheter and had developed gross hematuria. There was difficulty reinserted the catheter. He now has fever to 103. He is awake but not verbally responsive. He is in no acute distress. His breathing is nonlabored. Cultures were obtained. He was empirically treated with ceftriaxone. On review of previous cultures, he has had an Acinetobacter in the urine earlier this month, at low colony count. He is awake but unable to offer any additional history or complaints. Past medical history positive for stroke, hypertension, congestive heart failure, cardiomegaly, BPH, thyroid cancer. Past surgical history: Status post thyroidectomy. ALLERGIES: To RAMIPRIL. Medications include Tylenol, Lipitor, Celexa, Klonopin, Colace, Apresoline, Synthroid, Protonix, Flomax. SOCIAL HISTORY: Resides in a halfway facility. Nonsmoker, nondrinker. SYSTEMS REVIEW: Neurologic: Positive for stroke. Cardiac: Positive for chest pain syndrome. Respiratory: Negative cough or sputum production. Gastrointestinal: Negative vomiting or diarrhea. Genitourinary: As per HPI. LABORATORY DATA: White count 6.5, hematocrit 32.6, platelets 203, creatinine 1.1. Urinalysis negative. Blood cultures pending. Urine culture from March 15 negative. Chest x-ray: Left hemidiaphragm not visualized. Cannot rule out atelectasis versus infiltrate. PHYSICAL EXAMINATION: General: He is awake but lethargic. Vital Signs: T-max 103. Blood pressure 152/49. Pulse 80, regular. Respirations 21 per minute. Eyes: Sclerae anicteric. Heart Sounds: S1, S2. Lungs: Diminished breath sounds bilaterally. Abdomen: Soft. No suprapubic tenderness elicited. Extremities: 1+ edema. IMPRESSION: 1. High-grade fever. Rule out sepsis secondary to genitourinary source. 2. Gross hematuria. 3. Urinary retention. 4. Possible hospital-acquired left lower lobe pneumonia. Await cultures. Empiric antibiotic coverage for hospital-acquired urinary tract and respiratory tract pathogens with Zosyn. Urology evaluation. Case was discussed with patient's present at the time of examination. Thank you for the kind referral. CAMILO PERALTA M.D. [id number]
[2019-03-18] MEDS: PIPERACILLIN/TAZOB 3.375 GM 3.375 GM in DEXTROSE 5%-WATER - 50 ML IVPB SCH ×2 (14:55→18:27)
[2019-03-18] MEDS ORDERED: PIPERACILLIN/TAZOBACTAM 3.375 GM VIAL IVPB ONE ×2 (15:05→18:17)
[2019-03-18] MEDS ORDERED: DEXTROSE 5%-WATER - 50 ML IVPB ONE ×2 (15:06→18:17)
[2019-03-18] MEDS: ACETAMINOPHEN 650 MG SUPP.RECT PR PRN (15:18)
--- NOTE | 2019-03-18 16:42 | PN ---
Progress Note, Physician History of Present Illness: Pt seen and examined at bedside. He remains lethargic. - Current Medication List Current Medications: Active Medications Acetaminophen (Tylenol Suppository -) 650 mg [place] Q6H PRN PRN Reason: FEVER Last Admin: 03/18/19 15:18 Dose: 650 mg Atorvastatin Calcium (Lipitor -) 10 mg PO HS [facility] Last Admin: 03/17/19 22:06 Dose: 10 mg Bacitracin (Bacitracin -) 1 applic TP DAILY [facility] Last Admin: 03/18/19 10:48 Dose: 1 applic Citalopram Hydrobromide (Celexa -) 10 mg PO DAILY [facility] Last Admin: 03/18/19 09:45 Dose: Not Given Clonazepam (Klonopin -) 0.25 mg PO [facility] Last Admin: 03/17/19 22:05 Dose: 0.25 mg Cyanocobalamin (Vitamin B12 -) 1,000 mcg PO DAILY [facility] Last Admin: 03/18/19 09:47 Dose: Not Given Docusate Sodium (Colace -) 200 mg PO HS [facility] Last Admin: 03/17/19 22:06 Dose: 200 mg Heparin Sodium (Porcine) (Heparin -) 5,000 unit SQ BID [facility] Last Admin: 03/18/19 10:48 Dose: 5,000 unit Hydralazine HCl (Apresoline -) 100 mg PO TID [facility] Last Admin: 03/18/19 13:17 Dose: Not Given Dextrose/Sodium Chloride (D5-Ns -) 1,000 mls @ 83 mls/hr IV ASDIR [facility] Last Admin: 03/18/19 06:26 Dose: 83 mls/hr Piperacillin Sod/Tazobactam (Sod 3.375 gm/ Dextrose) 50 mls @ 100 mls/hr IVPB Q8H-IV [facility]; Protocol Last Admin: 03/18/19 14:55 Dose: 100 mls/hr Levothyroxine Sodium 100 mcg/ (Levothyroxine Sodium 75 mcg) 175 mcg PO DAILY@ 0700 [facility] Last Admin: 03/18/19 06:24 Dose: 175 mcg Multivitamins/Minerals/Vitamin C (Tab-A-Vit -) 1 tab PO DAILY [facility] Last Admin: 03/18/19 09:46 Dose: Not Given Pantoprazole Sodium (Protonix -) 40 mg PO DAILY [facility] Last Admin: 03/18/19 09:46 Dose: Not Given Tamsulosin HCl (Flomax -) 0.4 mg PO DAILY@0830 [facility] Last Admin: 03/18/19 09:45 Dose: Not Given - Objective Vital Signs: Vital Signs Temperature 101.8 F H 03/18/19 14:25 Pulse Rate 72 03/18/19 14:25 Respiratory Rate 20 03/18/19 14:25 Blood Pressure 142/63 03/18/19 14:25 O2 Sat by Pulse Oximetry (%) 90 L 03/18/19 09:00 Constitutional: Yes: Calm Eyes: Yes: Conjunctiva Clear HENT: Yes: Atraumatic Cardiovascular: Yes: S1, S2 Respiratory: Yes: CTA Bilaterally Gastrointestinal: Yes: Soft Genitourinary: Yes: Incontinence Musculoskeletal: Yes: Muscle Weakness Edema: No Integumentary: Yes: WNL Neurological: Yes: Lethargy Labs: CBC, BMP 03/18/19 10:25 03/18/19 07:23 INR, PTT INR 1.11 (0.83-1.09) H 03/15/19 17:14 Assessment/Plan Current Medications Generic Name Dose Route Start Last Admin Trade Name Freq PRN Reason Stop Dose Admin Acetaminophen 650 mg 03/18/19 14:50 03/18/19 15:18 Tylenol Suppository - SD 650 mg Q6H PRN Administration FEVER Atorvastatin Calcium 10 mg 03/16/19 22:00 03/17/19 22:06 Lipitor - PO 10 mg HS [facility] Administration Bacitracin 1 applic 03/16/19 13:30 03/18/19 10:48 Bacitracin - TP 1 applic DAILY [facility] Administration Citalopram Hydrobromide 10 mg 03/16/19 13:30 03/18/19 09:45 Celexa - PO Not Given DAILY [facility] Clonazepam 0.25 mg 03/16/19 22:00 03/17/19 22:05 Klonopin - PO 0.25 mg HS [facility] Administration Cyanocobalamin 1,000 mcg 03/16/19 13:30 03/18/19 09:47 Vitamin B12 - PO Not Given DAILY [facility] Docusate Sodium 200 mg 03/16/19 22:00 03/17/19 22:06 Colace - PO 200 mg HS [facility] Administration Heparin Sodium (Porcine) 5,000 unit 03/17/19 22:00 03/18/19 10:48 Heparin - SQ 5,000 unit BID [facility] Administration Hydralazine HCl 100 mg 03/16/19 14:39 03/18/19 13:17 Apresoline - PO Not Given TID [facility] Dextrose/Sodium Chloride 1,000 mls @ 83 mls/hr 03/17/19 17:00 03/18/19 06:26 D5-Ns - IV 83 mls/hr ASDIR [facility] Administration Piperacillin Sod/Tazobactam 50 mls @ 100 mls/hr 03/18/19 14:00 03/18/19 14:55 Sod 3.375 gm/ Dextrose IVPB 100 mls/hr Q8H-IV [facility] Administration Protocol Levothyroxine Sodium 100 mcg/ 175 mcg 03/17/19 07:00 03/18/19 06:24 Levothyroxine Sodium 75 mcg PO 175 mcg DAILY@0700 [facility] Administration Multivitamins/Minerals/Vitamin C 1 tab 03/16/19 13:30 03/18/19 09:46 Tab-A-Vit - PO Not Given DAILY [facility] Pantoprazole Sodium 40 mg 03/16/19 13:30 03/18/19 09:46 Protonix - PO Not Given DAILY [facility] Tamsulosin HCl 0.4 mg 03/17/19 08:30 03/18/19 09:45 Flomax - PO Not Given DAILY@0830 [facility] 1. LADY 2. Chest pain r/o ACS 3. Shortness of breath without gross volume overload 4. Hx of hypertension 5. BPH Plan - renal function is improving - follow cultures - cont fluids for now - pt remains lethargic - repeat labs in am - discussed with family
[2019-03-18] MEDS: DOCUSATE SODIUM 100 MG CAPSULE (FP) PO SCH (23:54)
[2019-03-18] MEDS: clonazePAM 0.5 MG TABLET PO SCH (23:54)
[2019-03-18] MEDS: ATORVASTATIN CA 10 MG TABLET (FP) PO SCH (23:55)
[2019-03-19] MEDS ORDERED: DEXTROSE 5%-WATER - 50 ML IVPB ONE ×3 (02:03→17:06)
[2019-03-19] MEDS ORDERED: PIPERACILLIN/TAZOBACTAM 3.375 GM VIAL IVPB ONE ×3 (02:03→17:06)
[2019-03-19] MEDS: PIPERACILLIN/TAZOB 3.375 GM 3.375 GM in DEXTROSE 5%-WATER - 50 ML IVPB SCH ×3 (02:06→17:17)
[2019-03-19] MEDS: LEVOTHYROXINE 100 MCG, LEVOTHYROXINE 75 MCG PO SCH (06:31)
[2019-03-19] MEDS: hydrALAZINE HCL 50 MG TABLET (FP) PO SCH ×4 (06:32→22:41)
[2019-03-19 07:39] LABS: BASO % 0.4 % (0-2.0); EOS % 1.6 % (0-4.5); HEMATOCRIT 32.5 % (35.4-49); HEMOGLOBIN 10.7 GM/dL (11.7-16.9); LYMPH % 5.2 % (8-40); MCH 29.9 pg (25.7-33.7); MEAN CELL VOLUME 90.5 fl (80-96); MEAN PLT VOLUME 8.9 fl (7.5-11.1); MONO % 8.4 % (3.8-10.2); NEUT % 84.4 % (42.8-82.8); PLATELET COUNT 185 K/MM3 (134-434); RDW 13.4 % (11.9-15.9); WHITE BLOOD COUNT 8.3 K/mm3 (4.0-10.0)
[2019-03-19 07:56] LABS: ALBUMIN 2.5 g/dl (3.4-5.0); BILIRUBIN,TOTAL 0.4 mg/dL (0.2-1); BLOOD UREA NITROGEN 23.9 mg/dL (7-18); CALCIUM 8.2 mg/dL (8.5-10.1); CREATININE 1.4 mg/dL (0.55-1.3); POTASSIUM 3.9 mmol/L (3.5-5.1); TOT PROT 5.4 g/dl (6.4-8.2)
[2019-03-19] MEDS ORDERED: LEVOTHYROXINE NA 75 MCG TABLET (FP) ONE (10:34)
[2019-03-19] MEDS ORDERED: LEVOTHYROXINE NA 100 MCG TABLET (FP) ONE (10:34)
[2019-03-19] MEDS: HEPARIN NA (PORCINE) 5,000 UNITS/ML 1ML VIAL SQ SCH ×2 (10:41→22:32)
[2019-03-19] MEDS: CITALOPRAM HYDROBROMIDE 10 MG TABLET (FP) PO SCH (10:42)
[2019-03-19] MEDS: MULTIVITAMINS (DAILY MVI) TABLET (FP) PO SCH (10:42)
[2019-03-19] MEDS: TAMSULOSIN HCL 0.4 MG CAP PO SCH (10:42)
[2019-03-19] MEDS: PANTOPRAZOLE 40 MG TABLET (FP) PO SCH (10:42)
[2019-03-19] MEDS: CYANOCOBALAMIN 1,000 MCG TABLET (FP) PO SCH (10:45)
--- NOTE | 2019-03-19 10:53 | PN ---
Progress Note, Physician Chief Complaint: keeps eyes closed but answered "Good morning" no fever on IV ATB - Current Medication List Current Medications: Active Medications Acetaminophen (Tylenol Suppository -) 650 mg [place] Q6H PRN PRN Reason: FEVER Last Admin: 03/18/19 15:18 Dose: 650 mg Atorvastatin Calcium (Lipitor -) 10 mg PO HS [facility] Last Admin: 03/18/19 23:55 Dose: Not Given Bacitracin (Bacitracin -) 1 applic TP DAILY [facility] Last Admin: 03/18/19 10:48 Dose: 1 applic Citalopram Hydrobromide (Celexa -) 10 mg PO DAILY [facility] Last Admin: 03/19/19 10:42 Dose: 10 mg Clonazepam (Klonopin -) 0.25 mg PO [facility] Last Admin: 03/18/19 23:54 Dose: Not Given Cyanocobalamin (Vitamin B12 -) 1,000 mcg PO DAILY [facility] Last Admin: 03/19/19 10:45 Dose: 1,000 mcg Docusate Sodium (Colace -) 200 mg PO [facility] Last Admin: 03/18/19 23:54 Dose: Not Given Heparin Sodium (Porcine) (Heparin -) 5,000 unit SQ BID [facility] Last Admin: 03/19/19 10:41 Dose: 5,000 unit Hydralazine HCl (Apresoline -) 100 mg PO TID [facility] Last Admin: 03/19/19 06:32 Dose: Not Given Dextrose/Sodium Chloride (D5-Ns -) 1,000 mls @ 83 mls/hr IV ASDIR [facility] Last Admin: 03/18/19 18:27 Dose: 83 mls/hr Piperacillin Sod/Tazobactam (Sod 3.375 gm/ Dextrose) 50 mls @ 100 mls/hr IVPB Q8H-IV [facility]; Protocol Last Admin: 03/19/19 10:24 Dose: 100 mls/hr Levothyroxine Sodium 100 mcg/ (Levothyroxine Sodium 75 mcg) 175 mcg PO DAILY@ 0700 [facility] Last Admin: 03/19/19 06:31 Dose: Not Given Multivitamins/Minerals/Vitamin C (Tab-A-Vit -) 1 tab PO DAILY [facility] Last Admin: 03/19/19 10:42 Dose: 1 tab Pantoprazole Sodium (Protonix -) 40 mg PO DAILY [facility] Last Admin: 03/19/19 10:42 Dose: 40 mg Tamsulosin HCl (Flomax -) 0.4 mg PO DAILY@0830 [facility] Last Admin: 03/19/19 10:42 Dose: 0.4 mg - Objective Vital Signs: Vital Signs Temperature 98.9 F 03/18/19 20:18 Pulse Rate 60 03/18/19 20:18 Respiratory Rate 20 03/18/19 20:18 Blood Pressure 118/47 L 03/18/19 20:18 O2 Sat by Pulse Oximetry (%) 94 L 03/18/19 21:00 Constitutional: Yes: No Distress Eyes: Yes: Conjunctiva Clear HENT: Yes: Atraumatic Neck: Yes: Supple Cardiovascular: Yes: Regular Rate and Rhythm Respiratory: Yes: Diminished Gastrointestinal: Yes: Soft. No: Tenderness Genitourinary: No: Hematuria Musculoskeletal: No: Joint Stiffness, Joint Swelling Extremities: No: Cold, Cool Edema: No Integumentary: No: Rash Neurological: Yes: Alert Psychiatric: Yes: Alert. No: Agitated Labs: CBC, BMP 03/19/19 07:00 03/19/19 07:00 INR, PTT INR 1.11 (0.83-1.09) H 03/15/19 17:14 - ....Imaging Other: Report Reviewed Assessment/Plan 88Y M with PMH of CVA/TIA 2018, HTN, CHF, HTN, BPJ, Cardiomyopathy, Thyroid ca s /p thyroidectomy, Dementia, Anxiety presenting to ED with complaints of chest pain and SOB . Found to be in ARF urinary obstruction US c/w severe BPH. renal, cardiology and f/u; Dickens DCd; observe r/o retention; fever -ATB per ID f/u cultures falls decubs aspiration DVT pfx d/w staff, will call pt's - prognosis guarded
--- NOTE | 2019-03-19 13:15 | PN ---
Progress Note (short form) - Note Progress Note: Renal follow up for LADY Seen and examined at the bedside awake and alert offers on acute complaints at the bedside oral intake is poor making urine Vital Signs Temperature 98.7 F 03/19/19 10:00 Pulse Rate 57 L 03/19/19 10:00 Respiratory Rate 20 03/19/19 10:00 Blood Pressure 180/62 H 03/19/19 10:00 O2 Sat by Pulse Oximetry (%) 96 03/19/19 09:00 Intake & Output 03/16/19 03/17/19 03/18/19 03/19/19 23:59 23:59 23:59 23:59 Intake Total 800 1232 1561 950 Output Total 1800 2050 400 Balance -1000 -818 1161 950 NAD awake and alert neck supple RRR Dec BS no LE edema no bladder distension CBC, BMP 03/19/19 07:00 03/19/19 07:00 Current Medications Acetaminophen (Tylenol Suppository -) 650 mg [place] Q6H PRN PRN Reason: FEVER Last Admin: 03/18/19 15:18 Dose: 650 mg Atorvastatin Calcium (Lipitor -) 10 mg PO HS [facility] Last Admin: 03/18/19 23:55 Dose: Not Given Bacitracin (Bacitracin -) 1 applic TP DAILY [facility] Last Admin: 03/18/19 10:48 Dose: 1 applic Citalopram Hydrobromide (Celexa -) 10 mg PO DAILY [facility] Last Admin: 03/19/19 10:42 Dose: 10 mg Clonazepam (Klonopin -) 0.25 mg PO HS [facility] Last Admin: 03/18/19 23:54 Dose: Not Given Cyanocobalamin (Vitamin B12 -) 1,000 mcg PO DAILY [facility] Last Admin: 03/19/19 10:45 Dose: 1,000 mcg Docusate Sodium (Colace -) 200 mg PO HS [facility] Last Admin: 03/18/19 23:54 Dose: Not Given Heparin Sodium (Porcine) (Heparin -) 5,000 unit SQ BID [facility] Last Admin: 03/19/19 10:41 Dose: 5,000 unit Hydralazine HCl (Apresoline -) 100 mg PO TID [facility] Last Admin: 03/19/19 06:32 Dose: Not Given Dextrose/Sodium Chloride (D5-Ns -) 1,000 mls @ 83 mls/hr IV ASDIR [facility] Last Admin: 03/18/19 18:27 Dose: 83 mls/hr Piperacillin Sod/Tazobactam (Sod 3.375 gm/ Dextrose) 50 mls @ 100 mls/hr IVPB Q8H-IV [facility]; Protocol Last Admin: 03/19/19 10:24 Dose: 100 mls/hr Levothyroxine Sodium 100 mcg/ (Levothyroxine Sodium 75 mcg) 175 mcg PO DAILY@ 0700 [facility] Last Admin: 03/19/19 06:31 Dose: Not Given Multivitamins/Minerals/Vitamin C (Tab-A-Vit -) 1 tab PO DAILY [facility] Last Admin: 03/19/19 10:42 Dose: 1 tab Pantoprazole Sodium (Protonix -) 40 mg PO DAILY [facility] Last Admin: 03/19/19 10:42 Dose: 40 mg Tamsulosin HCl (Flomax -) 0.4 mg PO DAILY@0830 [facility] Last Admin: 03/19/19 10:42 Dose: 0.4 mg 88 year old gentleman with history of CHF, Hypertension, BPH/Urinary retention, CVA/TIA, dementia who presented from [place] with shortness of breath and chest pain and noted to have Cr of 2. 1. Acute kidney injury from renal hypoprofusion (hypotension, CHF) vs. normotensive ATN (ARB) vs. retention 2. Chest pain r/o ACS 3. Shortness of breath without gross volume overload 4. Hx of hypertension 5. BPH Renal function overall improved but Cr has trended up in the last 24 hours Check bedside bladder scan to r/o urinary retention Increase Flomax to 0.8mg Daily Continue IVF for now hold ARB and diuretics for now Trend renal function and electrolytes daily Cam Mckeon DO
--- NOTE | 2019-03-19 14:34 | PN ---
Progress Note, Physician History of Present Illness: IN BED NOT VERBALLY RESPONSIVE BREATHING NON LABORED TEMPS DOWN TODAY VOIDING FREELY, NO HEMATURIA PER NURSE BC NO GROWTH - Current Medication List Current Medications: Active Medications Acetaminophen (Tylenol Suppository -) 650 mg [place] Q6H PRN PRN Reason: FEVER Last Admin: 03/18/19 15:18 Dose: 650 mg Atorvastatin Calcium (Lipitor -) [address] [facility] Last Admin: 03/18/19 23:55 Dose: Not Given Bacitracin (Bacitracin -) 1 applic TP DAILY [facility] Last Admin: 03/18/19 10:48 Dose: 1 applic Citalopram Hydrobromide (Celexa -) 10 mg PO DAILY [facility] Last Admin: 03/19/19 10:42 Dose: 10 mg Clonazepam (Klonopin -) 0.[address] [facility] Last Admin: 03/18/19 23:54 Dose: Not Given Cyanocobalamin (Vitamin B12 -) 1,000 mcg PO DAILY [facility] Last Admin: 03/19/19 10:45 Dose: 1,000 mcg Docusate Sodium (Colace -) [address] [facility] Last Admin: 03/18/19 23:54 Dose: Not Given Heparin Sodium (Porcine) (Heparin -) 5,000 unit SQ BID [facility] Last Admin: 03/19/19 10:41 Dose: 5,000 unit Hydralazine HCl (Apresoline -) 100 mg PO TID [facility] Last Admin: 03/19/19 06:32 Dose: Not Given Dextrose/Sodium Chloride (D5-Ns -) 1,000 mls @ 83 mls/hr IV ASDIR [facility] Last Admin: 03/18/19 18:27 Dose: 83 mls/hr Piperacillin Sod/Tazobactam (Sod 3.375 gm/ Dextrose) 50 mls @ 100 mls/hr IVPB Q8H-IV [facility]; Protocol Last Admin: 03/19/19 10:24 Dose: 100 mls/hr Levothyroxine Sodium 100 mcg/ (Levothyroxine Sodium 75 mcg) 175 mcg PO DAILY@ 0700 [facility] Last Admin: 03/19/19 06:31 Dose: Not Given Multivitamins/Minerals/Vitamin C (Tab-A-Vit -) 1 tab PO DAILY [facility] Last Admin: 03/19/19 10:42 Dose: 1 tab Pantoprazole Sodium (Protonix -) 40 mg PO DAILY [facility] Last Admin: 03/19/19 10:42 Dose: 40 mg Tamsulosin HCl (Flomax -) 0.4 mg PO DAILY@0830 [facility] Last Admin: 03/19/19 10:42 Dose: 0.4 mg - Objective Vital Signs: Vital Signs Temperature 98.7 F 03/19/19 10:00 Pulse Rate 57 L 03/19/19 10:00 Respiratory Rate 20 03/19/19 10:00 Blood Pressure 180/62 H 03/19/19 10:00 O2 Sat by Pulse Oximetry (%) 96 03/19/19 09:00 Constitutional: Yes: No Distress Cardiovascular: Yes: Regular Rate and Rhythm, S1, S2 Respiratory: Yes: Diminished Gastrointestinal: Yes: Normal Bowel Sounds, Soft. No: Tenderness Edema: No Labs: CBC, BMP 03/19/19 07:00 03/19/19 07:00 INR, PTT INR 1.11 (0.83-1.09) H 03/15/19 17:14 Assessment/Plan S/P FEVER ? SOURCE S/P GROSS HEMATURIA URINARY RETENTION- MACE OUT AZOTEMIA CONTINUE ZOSYN PENDING C/S DISCUSSED WITH AT BEDSIDE
[2019-03-19] MEDS: BACITRACIN 15 GM TUBE TOPICAL OINTMENT TP SCH (15:25)
--- NOTE | 2019-03-19 16:05 | PN ---
Progress Note (short form) - Note Progress Note: s: lethargic, appears comfortable Current Medications Acetaminophen (Tylenol Suppository -) 650 mg [place] Q6H PRN PRN Reason: FEVER Last Admin: 03/18/19 15:18 Dose: 650 mg Atorvastatin Calcium (Lipitor -) 10 mg PO HS [facility] Last Admin: 03/18/19 23:55 Dose: Not Given Bacitracin (Bacitracin -) 1 applic TP DAILY [facility] Last Admin: 03/19/19 15:25 Dose: 1 applic Citalopram Hydrobromide (Celexa -) 10 mg PO DAILY [facility] Last Admin: 03/19/19 10:42 Dose: 10 mg Clonazepam (Klonopin -) 0.[address] [facility] Last Admin: 03/18/19 23:54 Dose: Not Given Cyanocobalamin (Vitamin B12 -) 1,000 mcg PO DAILY [facility] Last Admin: 03/19/19 10:45 Dose: 1,000 mcg Docusate Sodium (Colace -) 200 mg PO HS [facility] Last Admin: 03/18/19 23:54 Dose: Not Given Heparin Sodium (Porcine) (Heparin -) 5,000 unit SQ BID [facility] Last Admin: 03/19/19 10:41 Dose: 5,000 unit Hydralazine HCl (Apresoline -) 100 mg PO TID [facility] Last Admin: 03/19/19 15:03 Dose: 100 mg Dextrose/Sodium Chloride (D5-Ns -) 1,000 mls @ 83 mls/hr IV ASDIR [facility] Last Admin: 03/18/19 18:27 Dose: 83 mls/hr Piperacillin Sod/Tazobactam (Sod 3.375 gm/ Dextrose) 50 mls @ 100 mls/hr IVPB Q8H-IV [facility]; Protocol Last Admin: 03/19/19 10:24 Dose: 100 mls/hr Levothyroxine Sodium 100 mcg/ (Levothyroxine Sodium 75 mcg) 175 mcg PO DAILY@ 0700 [facility] Last Admin: 03/19/19 06:31 Dose: Not Given Multivitamins/Minerals/Vitamin C (Tab-A-Vit -) 1 tab PO DAILY [facility] Last Admin: 03/19/19 10:42 Dose: 1 tab Pantoprazole Sodium (Protonix -) 40 mg PO DAILY [facility] Last Admin: 03/19/19 10:42 Dose: 40 mg Tamsulosin HCl (Flomax -) 0.4 mg PO DAILY@0830 [facility] Last Admin: 03/19/19 10:42 Dose: 0.4 mg Vital Signs Period Temp Pulse Resp BP Sys/[place] Pulse Ox Last 24 Hr 98.7 F-98.9 F 57-60 20-20 118-180/47-62 94-96 Constitutional: Yes: Well Nourished, No Distress, Calm Cardiovascular: Yes: Regular Rate and Rhythm, S1, S2 ((exam limited by pt pushing me away)). No: Gallop, Murmur Respiratory: Yes: Regular, CTA Bilaterally (anteriorly (not deep breaths)) Extremities: No: Cold Edema: No Neurological: Yes: Alert. No: Oriented Psychiatric: No: Agitated no jaundice, diaphoresis Assessment/Plan echo 02/2019: tds; nl lv, rv tds, mild mr/tr/ar ecg: sr lvh, no ischemic changes cxr: clear lungs a/p: 88 m hx dementia, cva, htn, hld, hypothyroid, dchf sent from tx for cp. cp, sob: -history unclear, denied symptoms after admission -no signs chf, acs -trops neg x2, ecg and echo unremarkable -monitor for recurrence htn: - elevated BP today - per family was on candesartan and spironolactone at home which were held here - cont current meds - monitor BP trend, may need to add additional agent if remains elevated hld: -cont statin nena: -held arb, lasix -creat back to baseline, now rising again -renal following chronic diastolic chf: -no signs vol overload -suspect was dry (prerenal labs) on admit -no sob. appears euvolemic--cont holding lasix for now -echo here unremarkable
[2019-03-19] MEDS: DEXTROSE 5%-NORMAL SALINE 1,000 ML IV SCH (17:17)
[2019-03-19 18:49] LABS: EPI CELLS 0.7 /HPF (0-5/HPF); HYALINE CASTS 14 /lpf (0-8); URINE APPEARANCE TURBID; URINE BILIRUBIN NEGATIVE (NEGATIVE); URINE COLOR DK YELLOW; URINE GLUCOSE (UA) NEGATIVE (NEGATIVE); URINE KETONE NEGATIVE (NEGATIVE); URINE LEUK ESTERASE 3+ (NEGATIVE); URINE NITRITE NEGATIVE (NEGATIVE); URINE PROTEIN 1+ (NEGATIVE); URINE RBC 26 /hpf (0-4); URINE WBC 463 /hpf (0-5)
[2019-03-19 20:02] LABS: URINE BACTERIA 13.2 /hpf (NEGATIVE); YEAST NONE SEEN (NEGATIVE)
[2019-03-19] MEDS: ATORVASTATIN CA 10 MG TABLET (FP) PO SCH ×2 (22:32→22:42)
[2019-03-19] MEDS: clonazePAM 0.5 MG TABLET PO SCH (22:41)
[2019-03-19] MEDS: DOCUSATE SODIUM 100 MG CAPSULE (FP) PO SCH (22:41)
[2019-03-20] MEDS ORDERED: DEXTROSE 5%-WATER - 50 ML IVPB ONE ×2 (01:10→09:28)
[2019-03-20] MEDS ORDERED: PIPERACILLIN/TAZOBACTAM 3.375 GM VIAL IVPB ONE ×2 (01:10→09:27)
[2019-03-20] MEDS: PIPERACILLIN/TAZOB 3.375 GM 3.375 GM in DEXTROSE 5%-WATER - 50 ML IVPB SCH ×2 (01:49→09:41)
[2019-03-20] MEDS: hydrALAZINE HCL 50 MG TABLET (FP) PO SCH ×3 (05:50→21:37)
[2019-03-20] MEDS ORDERED: LEVOTHYROXINE NA 75 MCG TABLET (FP) ONE (06:30)
[2019-03-20] MEDS ORDERED: LEVOTHYROXINE NA 100 MCG TABLET (FP) ONE (06:30)
[2019-03-20] MEDS: DEXTROSE 5%-NORMAL SALINE 1,000 ML IV SCH (06:40)
[2019-03-20] MEDS: LEVOTHYROXINE 100 MCG, LEVOTHYROXINE 75 MCG PO SCH (06:50)
--- NOTE | 2019-03-20 07:02 | PN ---
Progress Note, Physician Chief Complaint: awake alert conversant but does not open eyes; denies pain; had 560 cc urinary retention yesterday; Dickens reinserted abd recalled VSS afebrile; cx negative so far on IV ATB per Id - Current Medication List Current Medications: Active Medications Acetaminophen (Tylenol Suppository -) 650 mg [place] Q6H PRN PRN Reason: FEVER Last Admin: 03/18/19 15:18 Dose: 650 mg Atorvastatin Calcium (Lipitor -) 10 mg PO HS [facility] Last Admin: 03/19/19 22:42 Dose: Not Given Bacitracin (Bacitracin -) 1 applic TP DAILY [facility] Last Admin: 03/19/19 15:25 Dose: 1 applic Citalopram Hydrobromide (Celexa -) 10 mg PO DAILY [facility] Last Admin: 03/19/19 10:42 Dose: 10 mg Clonazepam (Klonopin -) 0.25 mg PO HS [facility] Last Admin: 03/19/19 22:41 Dose: Not Given Cyanocobalamin (Vitamin B12 -) 1,000 mcg PO DAILY [facility] Last Admin: 03/19/19 10:45 Dose: 1,000 mcg Docusate Sodium (Colace -) 200 mg PO HS [facility] Last Admin: 03/19/19 22:41 Dose: Not Given Heparin Sodium (Porcine) (Heparin -) 5,000 unit SQ BID [facility] Last Admin: 03/19/19 22:32 Dose: 5,000 unit Hydralazine HCl (Apresoline -) 100 mg PO TID [facility] Last Admin: 03/20/19 05:50 Dose: 100 mg Dextrose/Sodium Chloride (D5-Ns -) 1,000 mls @ 83 mls/hr IV ASDIR [facility] Last Admin: 03/20/19 06:40 Dose: 83 mls/hr Piperacillin Sod/Tazobactam (Sod 3.375 gm/ Dextrose) 50 mls @ 100 mls/hr IVPB Q8H-IV [facility]; Protocol Last Admin: 03/20/19 01:49 Dose: 100 mls/hr Levothyroxine Sodium 100 mcg/ (Levothyroxine Sodium 75 mcg) 175 mcg PO DAILY@ 0700 [facility] Last Admin: 03/20/19 06:50 Dose: 175 mcg Multivitamins/Minerals/Vitamin C (Tab-A-Vit -) 1 tab PO DAILY [facility] Last Admin: 03/19/19 10:42 Dose: 1 tab Pantoprazole Sodium (Protonix -) 40 mg PO DAILY [facility] Last Admin: 03/19/19 10:42 Dose: 40 mg Tamsulosin HCl (Flomax -) 0.4 mg PO DAILY@0830 [facility] Last Admin: 03/19/19 10:42 Dose: 0.4 mg - Objective Vital Signs: Vital Signs Temperature 99.1 F 03/20/19 06:00 Pulse Rate 57 L 03/20/19 06:00 Respiratory Rate 18 03/20/19 06:00 Blood Pressure 160/97 03/20/19 06:00 O2 Sat by Pulse Oximetry (%) 97 03/19/19 21:00 Constitutional: Yes: No Distress, Calm Eyes: Yes: Conjunctiva Clear HENT: Yes: Atraumatic Neck: Yes: Supple Cardiovascular: Yes: Regular Rate and Rhythm Respiratory: Yes: CTA Bilaterally, Diminished Gastrointestinal: Yes: Soft Genitourinary: Yes: Dickens Present, Hematuria (mild) Musculoskeletal: No: Joint Stiffness, Joint Swelling Extremities: No: Cold, Cool, Cyanosis Edema: No Integumentary: No: Rash, Venous Stasis Changes Neurological: Yes: Alert ...Motor Strength: WNL Psychiatric: Yes: Alert. No: Agitated Labs: CBC, BMP 03/19/19 07:00 03/19/19 07:00 INR, PTT INR 1.11 (0.83-1.09) H 03/15/19 17:14 - ....Imaging Other: Report Reviewed Assessment/Plan 88Y M with PMH of CVA/TIA 2018, HTN, CHF, HTN, BPJ, Cardiomyopathy, Thyroid ca s /p thyroidectomy, Dementia, Anxiety presenting to ED with complaints of chest pain and SOB . Found to be in ARF urinary obstruction US c/w severe BPH. renal, cardiology and f/u; Dickens reinserted for urinary retention f/u s/p fever -ATB per ID f/u cultures falls decubs aspiration DVT pfx d/w staff
[2019-03-20 07:53] LABS: BASO % 0.5 % (0-2.0); EOS % 2.9 % (0-4.5); HEMATOCRIT 31.8 % (35.4-49); HEMOGLOBIN 10.6 GM/dL (11.7-16.9); MCH 29.8 pg (25.7-33.7); MCHC 33.5 g/dl (32.0-35.9); MEAN PLT VOLUME 8.8 fl (7.5-11.1); MONO % 10.5 % (3.8-10.2); NEUT % 78.1 % (42.8-82.8); PLATELET COUNT 204 K/MM3 (134-434); RBC 3.57 M/mm3 (4.00-5.60); RDW 13.4 % (11.9-15.9); WHITE BLOOD COUNT 5.7 K/mm3 (4.0-10.0)
[2019-03-20 08:05] LABS: ALBUMIN 2.5 g/dl (3.4-5.0); BILIRUBIN,TOTAL 0.4 mg/dL (0.2-1); BLOOD UREA NITROGEN 18.1 mg/dL (7-18); CALCIUM 8.5 mg/dL (8.5-10.1); CREATININE 1.1 mg/dL (0.55-1.3); PHOSPHOROUS 2.6 mg/dL (2.5-4.9); POTASSIUM 3.8 mmol/L (3.5-5.1); TOT PROT 5.4 g/dl (6.4-8.2)
[2019-03-20] MEDS: CYANOCOBALAMIN 1,000 MCG TABLET (FP) PO SCH (09:42)
[2019-03-20] MEDS: CITALOPRAM HYDROBROMIDE 10 MG TABLET (FP) PO SCH (09:42)
[2019-03-20] MEDS: HEPARIN NA (PORCINE) 5,000 UNITS/ML 1ML VIAL SQ SCH ×2 (09:42→21:37)
[2019-03-20] MEDS: TAMSULOSIN HCL 0.4 MG CAP PO SCH (09:42)
[2019-03-20] MEDS: MULTIVITAMINS (DAILY MVI) TABLET (FP) PO SCH (09:42)
[2019-03-20] MEDS: PANTOPRAZOLE 40 MG TABLET (FP) PO SCH (09:42)
--- NOTE | 2019-03-20 12:18 | PN ---
Progress Note (short form) - Note Progress Note: s: lethargic, appears comfortable, not answering questions = Current Medications Acetaminophen (Tylenol Suppository -) 650 mg [place] Q6H PRN PRN Reason: FEVER Last Admin: 03/18/19 15:18 Dose: 650 mg Atorvastatin Calcium (Lipitor -) 10 mg PO HS [facility] Last Admin: 03/19/19 22:42 Dose: Not Given Bacitracin (Bacitracin -) 1 applic TP DAILY [facility] Last Admin: 03/19/19 15:25 Dose: 1 applic Citalopram Hydrobromide (Celexa -) 10 mg PO DAILY [facility] Last Admin: 03/20/19 09:42 Dose: 10 mg Clonazepam (Klonopin -) 0.25 mg PO [facility] Last Admin: 03/19/19 22:41 Dose: Not Given Cyanocobalamin (Vitamin B12 -) 1,000 mcg PO DAILY [facility] Last Admin: 03/20/19 09:42 Dose: 1,000 mcg Docusate Sodium (Colace -) 200 mg PO HS [facility] Last Admin: 03/19/19 22:41 Dose: Not Given Finasteride (Proscar -) 5 mg PO DAILY [facility] Heparin Sodium (Porcine) (Heparin -) 5,000 unit SQ BID [facility] Last Admin: 03/20/19 09:42 Dose: 5,000 unit Hydralazine HCl (Apresoline -) 100 mg PO TID [facility] Last Admin: 03/20/19 05:50 Dose: 100 mg Dextrose/Sodium Chloride (D5-Ns -) 1,000 mls @ 83 mls/hr IV ASDIR [facility] Last Admin: 03/20/19 06:40 Dose: 83 mls/hr Piperacillin Sod/Tazobactam (Sod 3.375 gm/ Dextrose) 50 mls @ 100 mls/hr IVPB Q8H-IV [facility]; Protocol Last Admin: 03/20/19 09:41 Dose: 100 mls/hr Levothyroxine Sodium 100 mcg/ (Levothyroxine Sodium 75 mcg) 175 mcg PO DAILY@ 0700 [facility] Last Admin: 03/20/19 06:50 Dose: 175 mcg Multivitamins/Minerals/Vitamin C (Tab-A-Vit -) 1 tab PO DAILY [facility] Last Admin: 03/20/19 09:42 Dose: 1 tab Pantoprazole Sodium (Protonix -) 40 mg PO DAILY [facility] Last Admin: 03/20/19 09:42 Dose: 40 mg Tamsulosin HCl (Flomax -) 0.4 mg PO DAILY@0830 [facility] Last Admin: 03/20/19 09:42 Dose: 0.4 mg Vital Signs Period Temp Pulse Resp BP Sys/[place] Pulse Ox Last 24 Hr 98.1 F-99.1 F 57-68 18-20 138-184/50-97 97 Constitutional: Yes: Well Nourished, No Distress, Calm Cardiovascular: Yes: Regular Rate and Rhythm, S1, S2 ((exam limited by pt pushing me away)). No: Gallop, Murmur Respiratory: Yes: Regular, CTA Bilaterally (anteriorly (not deep breaths)) Extremities: No: Cold Edema: No Neurological: Yes: Alert. No: Oriented Psychiatric: No: Agitated no jaundice, diaphoresis Assessment/Plan echo 02/2019: tds; nl lv, rv tds, mild mr/tr/ar ecg: sr lvh, no ischemic changes cxr: clear lungs a/p: 88 m hx dementia, cva, htn, hld, hypothyroid, dchf sent from [place] for cp. cp, sob: -history unclear, denied symptoms after admission -no signs chf, acs -trops neg x2, ecg and echo unremarkable -monitor for recurrence htn: - was on candesartan and spironolactone at home which were held here for LADY - BP improved today - cont current meds hld: -cont statin lady: -held arb, lasix -creat back to baseline, now rising again, improved with cole placement -renal, following chronic diastolic chf: -no signs vol overload -suspect was dry (prerenal labs) on admit -no sob. appears euvolemic--cont holding lasix for now -echo here unremarkable
[2019-03-20] MEDS: FINASTERIDE 5 MG TABLET (FP) PO SCH (13:47)
[2019-03-20] MEDS: BACITRACIN 15 GM TUBE TOPICAL OINTMENT TP SCH (13:48)
--- NOTE | 2019-03-20 15:28 | PN ---
Progress Note (short form) - Note Progress Note: Renal follow up for LADY Seen and examined at the bedside awake and alert offers on acute complaints was fond to have PVR of > 500cc and cole was re-inserted Vital Signs Temperature 99.1 F 03/20/19 06:00 Pulse Rate 66 03/20/19 10:00 Respiratory Rate 20 03/20/19 10:00 Blood Pressure 146/84 03/20/19 10:00 O2 Sat by Pulse Oximetry (%) 97 03/19/19 21:00 Intake & Output 03/17/19 03/18/19 03/19/19 03/20/19 23:59 23:59 23:59 23:59 Intake Total 1232 1561 1850 1270 Output Total 2050 400 700 250 Balance -818 1161 1150 1020 NAD awake and alert neck supple RRR Dec BS no LE edema no bladder distension CBC, BMP 03/20/19 06:48 03/20/19 06:48 Current Medications Acetaminophen (Tylenol Suppository -) 650 mg [place] Q6H PRN PRN Reason: FEVER Last Admin: 03/18/19 15:18 Dose: 650 mg Atorvastatin Calcium (Lipitor -) [address] [facility] Last Admin: 03/19/19 22:42 Dose: Not Given Bacitracin (Bacitracin -) [address] [facility] Last Admin: 03/20/19 13:48 Dose: 1 applic Citalopram Hydrobromide (Celexa -) [address] [facility] Last Admin: 03/20/19 09:42 Dose: 10 mg Clonazepam (Klonopin -) 0.[address] [facility] Last Admin: 03/19/19 22:41 Dose: Not Given Cyanocobalamin (Vitamin B12 -) 1,[address] [facility] Last Admin: 03/20/19 09:42 Dose: 1,000 mcg Docusate Sodium (Colace -) [address] [facility] Last Admin: 03/19/19 22:41 Dose: Not Given Finasteride (Proscar -) [address] [facility] Last Admin: 03/20/19 13:47 Dose: 5 mg Heparin Sodium (Porcine) (Heparin -) 5,[address] [facility] Last Admin: 03/20/19 09:42 Dose: 5,000 unit Hydralazine HCl (Apresoline -) [address] [facility] Last Admin: 03/20/19 13:47 Dose: 100 mg Dextrose/Sodium Chloride (D5-Ns -) 1,000 mls @ 83 mls/hr IV ASDIR [facility] Last Admin: 03/20/19 06:40 Dose: 83 mls/hr Piperacillin Sod/Tazobactam (Sod 3.375 gm/ Dextrose) 50 mls @ 100 mls/hr IVPB Q8H-IV [facility]; Protocol Last Admin: 03/20/19 09:41 Dose: 100 mls/hr Levothyroxine Sodium 100 mcg/ (Levothyroxine Sodium 75 mcg) 175 mcg PO DAILY@ 0700 [facility] Last Admin: 03/20/19 06:50 Dose: 175 mcg Multivitamins/Minerals/Vitamin C (Tab-A-Vit -) [address] [facility] Last Admin: 03/20/19 09:42 Dose: 1 tab Pantoprazole Sodium (Protonix -) [address] [facility] Last Admin: 03/20/19 09:42 Dose: 40 mg Tamsulosin HCl (Flomax -) 0.4 mg PO DAILY@0830 [facility] Last Admin: 03/20/19 09:42 Dose: 0.4 mg 88 year old gentleman with history of CHF, Hypertension, BPH/Urinary retention, CVA/TIA, dementia who presented from [place] with shortness of breath and chest pain and noted to have Cr of 2. 1. Acute kidney injury from renal hypoprofusion (hypotension, CHF) vs. normotensive ATN (ARB) vs. retention 2. Chest pain r/o ACS 3. Shortness of breath without gross volume overload 4. Hx of hypertension 5. BPH Renal function improved s/p IVF and cole Continue Flomax, added proscar. Urology follow up d/c IVF today, and trend renal function hold ARB and diuretics for now Trend renal function and electrolytes daily Cam Mckeon DO
--- NOTE | 2019-03-20 16:27 | PN ---
Progress Note, Physician History of Present Illness: LETHARGIC IN BED NOT VERBALLY RESPONSIVE BREATHING NON LABORED MACE RE-INSERTED DUE TO HIGH BLADDER VOLUME TEMPS REMAIN DOWN BC NO GROWTH - Current Medication List Current Medications: Active Medications Acetaminophen (Tylenol Suppository -) 650 mg [place] Q6H PRN PRN Reason: FEVER Last Admin: 03/18/19 15:18 Dose: 650 mg Atorvastatin Calcium (Lipitor -) 10 mg PO HS [facility] Last Admin: 03/19/19 22:42 Dose: Not Given Bacitracin (Bacitracin -) 1 applic TP DAILY [facility] Last Admin: 03/20/19 13:48 Dose: 1 applic Citalopram Hydrobromide (Celexa -) 10 mg PO DAILY [facility] Last Admin: 03/20/19 09:42 Dose: 10 mg Clonazepam (Klonopin -) 0.25 mg PO [facility] Last Admin: 03/19/19 22:41 Dose: Not Given Cyanocobalamin (Vitamin B12 -) 1,000 mcg PO DAILY [facility] Last Admin: 03/20/19 09:42 Dose: 1,000 mcg Docusate Sodium (Colace -) 200 mg PO HS [facility] Last Admin: 03/19/19 22:41 Dose: Not Given Finasteride (Proscar -) 5 mg PO DAILY [facility] Last Admin: 03/20/19 13:47 Dose: 5 mg Heparin Sodium (Porcine) (Heparin -) 5,000 unit SQ BID [facility] Last Admin: 03/20/19 09:42 Dose: 5,000 unit Hydralazine HCl (Apresoline -) 100 mg PO TID [facility] Last Admin: 03/20/19 13:47 Dose: 100 mg Piperacillin Sod/Tazobactam (Sod 3.375 gm/ Dextrose) 50 mls @ 100 mls/hr IVPB Q8H-IV [facility]; Protocol Last Admin: 03/20/19 09:41 Dose: 100 mls/hr Levothyroxine Sodium 100 mcg/ (Levothyroxine Sodium 75 mcg) 175 mcg PO DAILY@ 0700 [facility] Last Admin: 03/20/19 06:50 Dose: 175 mcg Multivitamins/Minerals/Vitamin C (Tab-A-Vit -) 1 tab PO DAILY [facility] Last Admin: 03/20/19 09:42 Dose: 1 tab Pantoprazole Sodium (Protonix -) 40 mg PO DAILY [facility] Last Admin: 03/20/19 09:42 Dose: 40 mg Tamsulosin HCl (Flomax -) 0.8 mg PO DAILY@0830 [facility] - Objective Vital Signs: Vital Signs Temperature 99.1 F 03/20/19 06:00 Pulse Rate 66 03/20/19 10:00 Respiratory Rate 20 03/20/19 10:00 Blood Pressure 146/84 03/20/19 10:00 O2 Sat by Pulse Oximetry (%) 97 03/19/19 21:00 Constitutional: Yes: No Distress Eyes: Yes: Conjunctiva Clear Cardiovascular: Yes: Regular Rate and Rhythm, S1, S2 Respiratory: Yes: CTA Bilaterally Gastrointestinal: Yes: Normal Bowel Sounds, Soft. No: Tenderness Edema: No Labs: CBC, BMP 03/20/19 06:48 03/20/19 06:48 INR, PTT INR 1.11 (0.83-1.09) H 03/15/19 17:14 Assessment/Plan S/P FEVER ? SOURCE RESOLVED C/S (-) S/P GROSS HEMATURIA URINARY RETENTION AZOTEMIA [facility] PO AUGMENTIN DISCUSSED WITH AT BEDSIDE
[2019-03-20] MEDS: AMOX TR/POT CLAV 500MG/125MG TABLETS (FP) PO SCH (17:41)
[2019-03-20] MEDS: clonazePAM 0.5 MG TABLET PO SCH (21:37)
[2019-03-20] MEDS: ATORVASTATIN CA 10 MG TABLET (FP) PO SCH (21:37)
[2019-03-20] MEDS: DOCUSATE SODIUM 100 MG CAPSULE (FP) PO SCH (21:37)
[2019-03-20] MEDS ORDERED: PT OWN MED DRAWER 7, Y5N ONE (21:51)
[2019-03-21] MEDS ORDERED: LEVOTHYROXINE NA 100 MCG TABLET (FP) ONE (05:54)
[2019-03-21] MEDS ORDERED: LEVOTHYROXINE NA 75 MCG TABLET (FP) ONE (05:54)
[2019-03-21] MEDS: hydrALAZINE HCL 50 MG TABLET (FP) PO SCH ×3 (06:07→21:53)
[2019-03-21] MEDS: LEVOTHYROXINE 100 MCG, LEVOTHYROXINE 75 MCG PO SCH (06:07)
[2019-03-21] MEDS ORDERED: PT OWN MED DRAWER 7, Y5N ONE (09:40)
[2019-03-21] MEDS: TAMSULOSIN HCL 0.4 MG CAP PO SCH (10:01)
[2019-03-21] MEDS: AMOX TR/POT CLAV 500MG/125MG TABLETS (FP) PO SCH ×2 (10:01→17:34)
[2019-03-21] MEDS: BACITRACIN 15 GM TUBE TOPICAL OINTMENT TP SCH (10:03)
[2019-03-21] MEDS: HEPARIN NA (PORCINE) 5,000 UNITS/ML 1ML VIAL SQ SCH ×2 (10:04→21:29)
[2019-03-21] MEDS: FINASTERIDE 5 MG TABLET (FP) PO SCH (10:04)
[2019-03-21] MEDS: CITALOPRAM HYDROBROMIDE 10 MG TABLET (FP) PO SCH (10:04)
[2019-03-21] MEDS: PANTOPRAZOLE 40 MG TABLET (FP) PO SCH (10:04)
[2019-03-21] MEDS: CYANOCOBALAMIN 1,000 MCG TABLET (FP) PO SCH (10:04)
[2019-03-21] MEDS: MULTIVITAMINS (DAILY MVI) TABLET (FP) PO SCH (10:04)
--- NOTE | 2019-03-21 11:25 | PN ---
Progress Note (short form) - Note Progress Note: s: sleeping, not rousable Current Medications Acetaminophen (Tylenol Suppository -) 650 mg [place] Q6H PRN PRN Reason: FEVER Last Admin: 03/18/19 15:18 Dose: 650 mg Amoxicillin/Clavulanate Potassium (Augmentin - 500mg Tablet) 1 tab PO BID@0800, 1730 [facility] Last Admin: 03/21/19 10:01 Dose: Not Given Atorvastatin Calcium (Lipitor -) 10 mg PO HS [facility] Last Admin: 03/20/19 21:37 Dose: 10 mg Bacitracin (Bacitracin -) 1 applic TP DAILY [facility] Last Admin: 03/21/19 10:03 Dose: 1 applic Citalopram Hydrobromide (Celexa -) 10 mg PO DAILY [facility] Last Admin: 03/21/19 10:04 Dose: Not Given Clonazepam (Klonopin -) 0.25 mg PO [facility] Last Admin: 03/20/19 21:37 Dose: 0.25 mg Cyanocobalamin (Vitamin B12 -) 1,000 mcg PO DAILY [facility] Last Admin: 03/21/19 10:04 Dose: Not Given Docusate Sodium (Colace -) 200 mg PO [facility] Last Admin: 03/20/19 21:37 Dose: 200 mg Finasteride (Proscar -) 5 mg PO DAILY [facility] Last Admin: 03/21/19 10:04 Dose: Not Given Heparin Sodium (Porcine) (Heparin -) 5,000 unit SQ BID [facility] Last Admin: 03/21/19 10:04 Dose: 5,000 unit Hydralazine HCl (Apresoline -) 100 mg PO TID [facility] Last Admin: 03/21/19 06:07 Dose: 100 mg Levothyroxine Sodium 100 mcg/ (Levothyroxine Sodium 75 mcg) 175 mcg PO DAILY@ 0700 [facility] Last Admin: 03/21/19 06:07 Dose: 175 mcg Multivitamins/Minerals/Vitamin C (Tab-A-Vit -) 1 tab PO DAILY [facility] Last Admin: 03/21/19 10:04 Dose: Not Given Pantoprazole Sodium (Protonix -) 40 mg PO DAILY [facility] Last Admin: 03/21/19 10:04 Dose: Not Given Tamsulosin HCl (Flomax -) 0.8 mg PO DAILY@0830 [facility] Last Admin: 03/21/19 10:01 Dose: Not Given Vital Signs Period Temp Pulse Resp BP Sys/[place] Pulse Ox Last 24 Hr 98.0 F-98.8 F 58-64 18-20 139-163/54-89 96 Constitutional: Yes: Well Nourished, No Distress, Calm Cardiovascular: Yes: Regular Rate and Rhythm, S1, S2 ((exam limited by pt pushing me away)). No: Gallop, Murmur Respiratory: Yes: Regular, CTA Bilaterally (anteriorly (not deep breaths)) Extremities: No: Cold Edema: No Neurological: Yes: Alert. No: Oriented Psychiatric: No: Agitated no jaundice, diaphoresis Assessment/Plan echo 02/2019: tds; nl lv, rv tds, mild mr/tr/ar ecg: sr lvh, no ischemic changes cxr: clear lungs a/p: 88 m hx dementia, cva, htn, hld, hypothyroid, dchf sent from [place] for cp. cp, sob: -history unclear, denied symptoms after admission -no signs chf, acs -trops neg x2, ecg and echo unremarkable -monitor for recurrence htn: - was on candesartan and spironolactone at home which were held here for LADY - cont current meds, stable hld: -cont statin lady: -held arb, lasix -creat back to baseline, now rising again, improved with cole placement -renal, following chronic diastolic chf: -no signs vol overload -suspect was dry (prerenal labs) on admit -no sob. appears euvolemic--cont holding lasix for now -echo here unremarkable
[2019-03-21 12:56] LABS: BASO % 0.6 % (0-2.0); EOS % 2.3 % (0-4.5); HEMATOCRIT 32.5 % (35.4-49); HEMOGLOBIN 10.7 GM/dL (11.7-16.9); MCH 29.3 pg (25.7-33.7); MEAN CELL VOLUME 88.6 fl (80-96); MEAN PLT VOLUME 8.3 fl (7.5-11.1); MONO % 9.3 % (3.8-10.2); NEUT % 77.8 % (42.8-82.8); PLATELET COUNT 228 K/MM3 (134-434); RBC 3.67 M/mm3 (4.00-5.60); RDW 13.1 % (11.9-15.9); WHITE BLOOD COUNT 5.8 K/mm3 (4.0-10.0)
--- NOTE | 2019-03-21 13:24 | PN ---
Progress Note (short form) - Note Progress Note: Renal follow up for LADY Seen and examined at the bedside lethargic, not opening eyes but answering questions has poor oral intake denies any pain making urine via cole Vital Signs Temperature 98.8 F 03/21/19 09:52 Pulse Rate 60 03/21/19 09:52 Respiratory Rate 18 03/21/19 09:52 Blood Pressure 142/54 L 03/21/19 09:52 O2 Sat by Pulse Oximetry (%) 96 03/20/19 20:07 Intake & Output 03/18/19 03/19/19 03/20/19 03/21/19 23:59 23:59 23:59 23:59 Intake Total 1561 1850 2570 270 Output Total 400 700 700 200 Balance 1161 1150 1870 70 NAD awake and alert neck supple RRR Dec BS no LE edema no bladder distension CBC, BMP 03/21/19 12:40 Current Medications Acetaminophen (Tylenol Suppository -) 650 mg [place] Q6H PRN PRN Reason: FEVER Last Admin: 03/18/19 15:18 Dose: 650 mg Amoxicillin/Clavulanate Potassium (Augmentin - 500mg Tablet) 1 tab PO BID@0800, 1730 [facility] Last Admin: 03/21/19 10:01 Dose: Not Given Atorvastatin Calcium (Lipitor -) 10 mg PO HS [facility] Last Admin: 03/20/19 21:37 Dose: 10 mg Bacitracin (Bacitracin -) 1 applic TP DAILY [facility] Last Admin: 03/21/19 10:03 Dose: 1 applic Citalopram Hydrobromide (Celexa -) 10 mg PO DAILY [facility] Last Admin: 03/21/19 10:04 Dose: Not Given Clonazepam (Klonopin -) 0.25 mg PO HS [facility] Last Admin: 03/20/19 21:37 Dose: 0.25 mg Cyanocobalamin (Vitamin B12 -) 1,000 mcg PO DAILY [facility] Last Admin: 03/21/19 10:04 Dose: Not Given Docusate Sodium (Colace -) 200 mg PO HS [facility] Last Admin: 03/20/19 21:37 Dose: 200 mg Finasteride (Proscar -) 5 mg PO DAILY [facility] Last Admin: 03/21/19 10:04 Dose: Not Given Heparin Sodium (Porcine) (Heparin -) 5,000 unit SQ BID [facility] Last Admin: 03/21/19 10:04 Dose: 5,000 unit Hydralazine HCl (Apresoline -) 100 mg PO TID [facility] Last Admin: 03/21/19 06:07 Dose: 100 mg Dextrose/Sodium Chloride (D5-1/2ns+40 Meq Kcl -) 40 meq in 1,000 mls @ 60 mls/ hr IV [facility] Levothyroxine Sodium 100 mcg/ (Levothyroxine Sodium 75 mcg) 175 mcg PO DAILY@ 0700 [facility] Last Admin: 03/21/19 06:07 Dose: 175 mcg Multivitamins/Minerals/Vitamin C (Tab-A-Vit -) 1 tab PO DAILY [facility] Last Admin: 03/21/19 10:04 Dose: Not Given Pantoprazole Sodium (Protonix -) 40 mg PO DAILY [facility] Last Admin: 03/21/19 10:04 Dose: Not Given Tamsulosin HCl (Flomax -) 0.8 mg PO DAILY@0830 [facility] Last Admin: 03/21/19 10:01 Dose: Not Given 88 year old gentleman with history of CHF, Hypertension, BPH/Urinary retention, CVA/TIA, dementia who [place] with shortness of breath and chest pain and noted to have Cr of 2. 1. Acute kidney injury from renal hypoprofusion (hypotension, CHF) vs. normotensive ATN (ARB) vs. retention 2. Chest pain r/o ACS 3. Shortness of breath without gross volume overload 4. Hx of hypertension 5. BPH No lab results today, ordered stat labs UA form yesterday was without growth Renal function improved s/p IVF and cole will restart IVF as pt has poor oral intake for total of 1.5L daily Continue Flomax, added proscar. Urology follow up hold ARB and diuretics for now Trend renal function and electrolytes daily Cam Mckeon DO
[2019-03-21 13:31] LABS: ALBUMIN 2.4 g/dl (3.4-5.0); BILIRUBIN,TOTAL 0.2 mg/dL (0.2-1); BLOOD UREA NITROGEN 11.8 mg/dL (7-18); CALCIUM 8.4 mg/dL (8.5-10.1); CREATININE 0.9 mg/dL (0.55-1.3); POTASSIUM 3.7 mmol/L (3.5-5.1); TOT PROT 5.2 g/dl (6.4-8.2)
[2019-03-21] MEDS: D5-1/2NS+40 MEQ KCL - 40 MEQ/1,000 ML INFUS.BAG IV SCH (13:57)
[2019-03-21] MEDS: ACETAMINOPHEN 650 MG SUPP.RECT PR PRN (15:24)
--- NOTE | 2019-03-21 16:04 | PN ---
Progress Note, Physician History of Present Illness: Pt is sleepy, arousable but cannot provide full ROS. Pt w/o SOB, pain - Current Medication List Current Medications: Active Medications Acetaminophen (Tylenol Suppository -) 650 mg [place] Q6H PRN PRN Reason: FEVER Last Admin: 03/21/19 15:24 Dose: 650 mg Amoxicillin/Clavulanate Potassium (Augmentin - 500mg Tablet) 1 tab PO BID@0800, 1730 [facility] Last Admin: 03/21/19 10:01 Dose: Not Given Atorvastatin Calcium (Lipitor -) 10 mg PO HS [facility] Last Admin: 03/20/19 21:37 Dose: 10 mg Bacitracin (Bacitracin -) 1 applic TP DAILY [facility] Last Admin: 03/21/19 10:03 Dose: 1 applic Citalopram Hydrobromide (Celexa -) 10 mg PO DAILY [facility] Last Admin: 03/21/19 10:04 Dose: Not Given Clonazepam (Klonopin -) 0.25 mg PO HS [facility] Last Admin: 03/20/19 21:37 Dose: 0.25 mg Cyanocobalamin (Vitamin B12 -) 1,000 mcg PO DAILY [facility] Last Admin: 03/21/19 10:04 Dose: Not Given Docusate Sodium (Colace -) 200 mg PO HS [facility] Last Admin: 03/20/19 21:37 Dose: 200 mg Finasteride (Proscar -) 5 mg PO DAILY [facility] Last Admin: 03/21/19 10:04 Dose: Not Given Heparin Sodium (Porcine) (Heparin -) 5,000 unit SQ BID [facility] Last Admin: 03/21/19 10:04 Dose: 5,000 unit Hydralazine HCl (Apresoline -) 100 mg PO TID [facility] Last Admin: 03/21/19 15:15 Dose: Not Given Dextrose/Sodium Chloride (D5-1/2ns+40 Meq Kcl -) 40 meq in 1,000 mls @ 60 mls/ hr IV ASDIR [facility] Last Admin: 03/21/19 13:57 Dose: 60 mls/hr Levothyroxine Sodium 100 mcg/ (Levothyroxine Sodium 75 mcg) 175 mcg PO DAILY@ 0700 [facility] Last Admin: 03/21/19 06:07 Dose: 175 mcg Multivitamins/Minerals/Vitamin C (Tab-A-Vit -) 1 tab PO DAILY [facility] Last Admin: 10/30/19 10:04 Dose: Not Given Pantoprazole Sodium (Protonix -) 40 mg PO DAILY [facility] Last Admin: 03/21/19 10:04 Dose: Not Given Tamsulosin HCl (Flomax -) 0.8 mg PO DAILY@0830 [facility] Last Admin: 03/21/19 10:01 Dose: Not Given - Objective Vital Signs: Vital Signs Temperature 98.8 F 03/21/19 09:52 Pulse Rate 60 03/21/19 09:52 Respiratory Rate 18 03/21/19 09:52 Blood Pressure 142/54 L 03/21/19 09:52 O2 Sat by Pulse Oximetry (%) 95 03/21/19 09:00 Constitutional: Yes: No Distress, Calm Cardiovascular: Yes: Regular Rate and Rhythm, S1, S2 Respiratory: Yes: Regular, CTA Bilaterally (decreased inspiratory effort) Gastrointestinal: Yes: Normal Bowel Sounds, Soft. No: Tenderness Edema: No Labs: CBC, BMP 03/21/19 12:40 03/21/19 12:13 INR, PTT INR 1.11 (0.83-1.09) H 03/15/19 17:14 Problem List - Problems (1) Chest pain Code(s): R07.9 - CHEST PAIN, UNSPECIFIED (2) LADY (acute kidney injury) Code(s): N17.9 - ACUTE KIDNEY FAILURE, UNSPECIFIED (3) HTN (hypertension) Code(s): I10 - ESSENTIAL (PRIMARY) HYPERTENSION (4) Dementia Code(s): F03.90 - UNSPECIFIED DEMENTIA WITHOUT BEHAVIORAL DISTURBANCE (5) BPH (benign prostatic hyperplasia) Code(s): N40.0 - BENIGN PROSTATIC HYPERPLASIA WITHOUT LOWER URINRY TRACT SYMP (6) Urinary retention due to benign prostatic hyperplasia Code(s): N40.1 - BENIGN PROSTATIC HYPERPLASIA WITH LOWER URINARY TRACT SYMP; R33.8 - OTHER RETENTION OF URINE (7) Fever Code(s): R50.9 - FEVER, UNSPECIFIED Assessment/Plan Cardio, Renal, ID, Consults are apprecciated To change abtx to IV Recall Maintain Dickens for now IVF AM labs
--- NOTE | 2019-03-21 16:25 | CONSULT ---
Admitting History and Physical - Primary Care Physician PCP: Darshan Langley - Admission History of Present Illness: 88 year old gentleman with history of CHF, Hypertension, BPH/Urinary retention, CVA/TIA, dementia who presented from [place] with shortness of breath and chest pain. Lethargic, not opening eyes but answering questions Has poor oral intake. Concern for aspiration risk. Meds/ meals held. Selected Entries 03/21/19 03/21/19 03/21/19 05:55 09:52 10:07 Breakfast 75% Lunch Temperature 98.4 F 98.8 F 03/21/19 14:32 Breakfast Lunch 25% Temperature Laboratory Tests 03/21/19 12:40 WBC 5.8 Pt was on reg diet/thin liquid at [facility]. Per family, pt eats well at [facility], but is fed due to his Dementia. History Source: Patient, Medical Record Limitations to Obtaining History: Clinical Condition, Dementia - Past Medical History PER DIEM REGISTERED NURSE: Yes: CVA, Dementia Cardiovascular: Yes: HTN Renal/: Yes: BPH Heme/Onc: Yes: Cancer (thyroid) Endocrine: Yes: Hypothyroidism - Past Surgical History Additional Past Surgical History: thyroidectomy - Advance Directives Advance Directives: Yes: Health Care Proxy, DNR, MOLST - Smoking History Smoking history: Never smoked Have you smoked in the past 12 months: No - Alcohol/Substance Use Hx Alcohol Use: No - Social History ADL: Support Services Occupation: [employer] Former History - Admission Reason For Visit: ACUTE KIDNEY INJURY - Diagnostics X-ray: Report Reviewed - General Mental Status: Awake and Alert (Verbal, keeps eyes closed, Hiccoughs over last 3 days, per pt's .), Able to Follow Commands Attention: Moderate Impairment (eyes closed but responds to directives/questions ) - Hearing Hearing: Normal Speech Evaluation - Communication Primary Language: NEPALESE Communication: Yes: Simple Responses Oral Expression Ability: Yes: Moderate Impairment - Speech Production Able to Make Needs Known: Yes: Moderately Impaired Intelligibility: Yes: WNL - Speech Characteristics Voice Loudness: Normal Voice Pitch: Yes: Normal Voice Phonatory-based Quality: Yes: Normal Speech Pattern: Impaired Nasal Resonance: Normal Articulation: Yes: Precise - Language/Auditory Comprehension Follows: Yes: 1 Stage Simple Commands Observation: Able to respond to yes/no queries: Yes, Yes/No Confusion: No, Comprehends Conversational Speech: Yes - Language/Verbal Expression Aphasia: Yes: Paraphrasic Errors, Neologisms, Grammatic Errors Able to Respond to Simple Queries: Yes: Moderately Impaired - Swallow Evaluation/Bedside Assessment Current Nutritional Intake: Regular (PO held) Oral Secretions: Yes: WFL Dentition: Yes: Adequate Facial Symmetry at Rest: Symmetrical Facial Symmetry on Retraction: Symmetrical Facial Movement: Controlled Sensation: Normal Against Resistance Opening: Normal Against Resistance Closing: Normal Pucker Lips: Normal Smile: Normal Lingual Movement: Normal, Symmetric Lingual Speed of Movement: Normal Lingual Movement Strgth Against Opposition: Normal Lingual Movement Characteristics: Normal Velopharyngeal Movement: Normal Laryngeal Elevation: WFL Laryngeal Movement: Able to Palpate Rate of Intake: WFL Bolus Size: WFL Labial Seal: WFL Chewing: WFL Oral Prep Time: WFL A-P Transit: WFL Pocketing: None Timing of Swallow: Delayed Coughing/Throat Clear: Yes (Began coughing after hiccoughing and trial of Poundcake) Change in Voice: Yes Recommendations - Speech Evaluation, Impression/Plan Impression: Language of confusion sec to Dementia. Hiccoughing x 3 days per , eyes closed but verbally responds and follows commands. Confused. Overtly tolerated puree/sips of water initially but then began coughing after hiccoughing and trial of Poundcake - Disposition Discharge to: Assisted Facility - Dysphagia Impressions/Plan Swallowing Skills: Impaired Dysphagia Impressions: Mild Impairment (affected likely but hiccoughing and impaired attention/eye closure.), Moderate Impairment, Risk of Aspiration *Silent aspiration: cannot be R/O at bedside Dysphagia Treatment Plan: Small Bites, Chin Tuck/Down, Clear Pocket Food, Trial Feedings, Facilitative Feeding, Safe Rate, 1/2 tsp. at a time, Elevate HOB during feed Recommendations: Modified Barium Swallow (if cough, congestion,fever), Other ( Do not feed whle hiccoughing or if not aware/verbally responsive.) - Recommendations Diet Consistency: Dysphagia Pureed Medication Administration: Crushed with applesauce Liquids: [place] Thick (on tsp) Supplement: Magic Cup, Ensure Pudding
[2019-03-21 17:08] LABS: FREE KAPPA,SERUM 32.2 mg/L (3.3-19.4)
[2019-03-21] MEDS ORDERED: cefTRIAXone SODIUM 1 GM VIAL ONE (17:28)
[2019-03-21] MEDS ORDERED: DEXTROSE 5%-WATER - 50 ML IVPB ONE (17:29)
[2019-03-21] MEDS: CEFTRIAXONE 1 GM in DEXTROSE 5%-WATER - 50 ML IVPB SCH (17:33)
[2019-03-21] MEDS: clonazePAM 0.5 MG TABLET PO SCH (21:30)
[2019-03-21] MEDS: DOCUSATE SODIUM 100 MG CAPSULE (FP) PO SCH (21:30)
[2019-03-21] MEDS: ATORVASTATIN CA 10 MG TABLET (FP) PO SCH (21:30)
[2019-03-21] MEDS ORDERED: SODIUM CHLORIDE 1,000 ML IV SCH (23:00)
[2019-03-22] MEDS ORDERED: LEVOTHYROXINE NA 75 MCG TABLET (FP) ONE (05:46)
[2019-03-22] MEDS ORDERED: LEVOTHYROXINE NA 100 MCG TABLET (FP) ONE (05:47)
[2019-03-22] MEDS: hydrALAZINE HCL 50 MG TABLET (FP) PO SCH ×4 (05:53→22:27)
[2019-03-22] MEDS: LEVOTHYROXINE 100 MCG, LEVOTHYROXINE 75 MCG PO SCH (06:12)
[2019-03-22 09:11] LABS: BASO % 0.4 % (0-2.0); EOS % 1.5 % (0-4.5); HEMATOCRIT 33.3 % (35.4-49); HEMOGLOBIN 11.2 GM/dL (11.7-16.9); LYMPH % 10.8 % (8-40); MCH 29.5 pg (25.7-33.7); MCHC 33.7 g/dl (32.0-35.9); MEAN CELL VOLUME 87.6 fl (80-96); MEAN PLT VOLUME 8.7 fl (7.5-11.1); NEUT % 80.3 % (42.8-82.8); PLATELET COUNT 255 K/MM3 (134-434); RDW 13.2 % (11.9-15.9); WHITE BLOOD COUNT 6.4 K/mm3 (4.0-10.0)
[2019-03-22 09:34] LABS: ALBUMIN 2.6 g/dl (3.4-5.0); BILIRUBIN,TOTAL 0.4 mg/dL (0.2-1); BLOOD UREA NITROGEN 9.1 mg/dL (7-18); CALCIUM 8.3 mg/dL (8.5-10.1); CREATININE 0.7 mg/dL (0.55-1.3); PHOSPHOROUS 2.3 mg/dL (2.5-4.9); POTASSIUM 3.9 mmol/L (3.5-5.1); TOT PROT 5.5 g/dl (6.4-8.2)
[2019-03-22] MEDS ORDERED: PT OWN MED DRAWER 7, Y5N ONE (09:40)
[2019-03-22] MEDS ORDERED: cefTRIAXone SODIUM 1 GM VIAL ONE (09:41)
[2019-03-22] MEDS ORDERED: DEXTROSE 5%-WATER - 50 ML IVPB ONE (09:41)
[2019-03-22] MEDS: HEPARIN NA (PORCINE) 5,000 UNITS/ML 1ML VIAL SQ SCH ×2 (09:43→22:27)
[2019-03-22] MEDS: BACITRACIN 15 GM TUBE TOPICAL OINTMENT TP SCH (09:43)
[2019-03-22] MEDS: CEFTRIAXONE 1 GM in DEXTROSE 5%-WATER - 50 ML IVPB SCH (09:43)
[2019-03-22] MEDS: MULTIVITAMINS (DAILY MVI) TABLET (FP) PO SCH (10:29)
[2019-03-22] MEDS: CITALOPRAM HYDROBROMIDE 10 MG TABLET (FP) PO SCH (10:29)
[2019-03-22] MEDS: TAMSULOSIN HCL 0.4 MG CAP PO SCH (10:29)
[2019-03-22] MEDS: FINASTERIDE 5 MG TABLET (FP) PO SCH (10:29)
[2019-03-22] MEDS: CYANOCOBALAMIN 1,000 MCG TABLET (FP) PO SCH (10:30)
[2019-03-22] MEDS: PANTOPRAZOLE 40 MG TABLET (FP) PO SCH (10:34)
--- NOTE | 2019-03-22 11:09 | PN ---
Progress Note (short form) - Note Progress Note: failed voiding trial cole reinserted urine clear would treat with chronic cole and have it changed monthly Problem List - Problems (1) BPH (benign prostatic hyperplasia) Code(s): N40.0 - BENIGN PROSTATIC HYPERPLASIA WITHOUT LOWER URINRY TRACT SYMP
--- NOTE | 2019-03-22 11:12 | PN ---
Progress Note, VOICE WRITING REPORTER - Note Progress Note: Selected Entries 03/21/19 03/21/19 03/21/19 05:55 09:52 14:32 Breakfast Lunch 25% Supper Temperature 98.4 F 98.8 F 03/21/19 03/22/19 03/22/19 22:22 06:00 09:45 Breakfast 100% Lunch Supper 50% Temperature 98.2 F 99.3 F 03/22/19 09:49 Breakfast Lunch Supper Temperature 98.4 F Initiated on Puree/nectar with good tolerance. Eyes closed but verbal. Aspiration precautions.
--- NOTE | 2019-03-22 11:54 | PN ---
Progress Note (short form) - Note Progress Note: s: sleeping, not rousable Current Medications Generic Name Dose Route Start Last Admin Trade Name Freq PRN Reason Stop Dose Admin Acetaminophen 650 mg 03/18/19 14:50 03/21/19 15:24 Tylenol Suppository - [place] 650 mg Q6H PRN Administration FEVER Atorvastatin Calcium 10 mg 03/16/19 22:00 03/21/19 21:30 Lipitor - PO Not Given HS ROCKY Bacitracin 1 applic 03/16/19 13:30 03/22/19 09:43 Bacitracin - TP 1 applic DAILY [facility]OCKY Administration Citalopram Hydrobromide 10 mg 03/16/19 13:30 03/22/19 10:29 Celexa - PO 10 mg DAILY [facility] Administration Clonazepam 0.25 mg 03/16/19 22:00 03/21/19 21:30 Klonopin - PO Not Given HS ROCKY Cyanocobalamin 1,000 mcg 03/16/19 13:30 03/22/19 10:30 Vitamin B12 - PO 1,000 mcg DAILY [facility] Administration Docusate Sodium 200 mg 03/16/19 22:00 03/21/19 21:30 Colace - PO Not Given HS [facility]OCKY Finasteride 5 mg 03/20/19 11:15 03/22/19 10:29 Proscar - PO 5 mg DAILY [facility] Administration Heparin Sodium (Porcine) 5,000 unit 03/17/19 22:00 03/22/19 09:43 Heparin - SQ 5,000 unit BID [facility] Administration Hydralazine HCl 100 mg 03/16/19 14:39 03/22/19 09:42 Apresoline - PO 100 mg TID ROCKY Administration Dextrose/Sodium Chloride 40 meq in 1,000 mls @ 60 mls/hr 03/21/19 12:30 03/21 13:57 D5-1/2ns+40 Meq Kcl - IV 60 mls/hr ASDIR [facility] Administration Ceftriaxone Sodium 1 gm/ 50 mls @ 100 mls/hr 03/21/19 16:15 03/22/19 09:43 Dextrose IVPB 100 mls/hr DAILY [facility] Administration Sodium Chloride 1,000 mls @ 42 mls/hr 03/21/19 23:00 03/21/19 23:48 Normal Saline - IV 42 mls/hr ASDIR [facility]OCK[facility] Administration Levothyroxine Sodium 100 mcg/ 175 mcg 03/17/19 07:00 03/22/19 06:12 Levothyroxine Sodium 75 mcg PO 175 mcg DAILY@0700 [facility] Administration Multivitamins/Minerals/Vitamin C 1 tab 03/16/19 13:30 03/22/19 10:29 Tab-A-Vit - PO 1 tab DAILY [facility] Administration Pantoprazole Sodium 40 mg 03/16/19 13:30 03/22/19 10:34 Protonix - PO 40 mg DAILY [facility] Administration Tamsulosin HCl 0.8 mg 03/20/19 15:28 03/22/19 10:29 Flomax - PO 0.8 mg DAILY@0830 [facility] Administration Vital Signs Period Temp Pulse Resp BP Sys/[place] Pulse Ox Last 24 Hr 98.2 F-99.3 F 62-86 20-20 151-167/71-85 96-96 Constitutional: Yes: Well Nourished, No Distress, Calm Cardiovascular: Yes: Regular Rate and Rhythm, S1, S2 No: Gallop, Murmur Respiratory: Yes: Regular, CTA Bilaterally (anteriorly (not deep breaths)) Extremities: No: Cold Edema: No Neurological: Yes: Alert. No: Oriented Psychiatric: No: Agitated no jaundice, diaphoresis CBC, BMP 03/22/19 07:05 03/22/19 07:05 Assessment/Plan echo 02/2019: tds; nl lv, rv tds, mild mr/tr/ar ecg: sr lvh, no ischemic changes cxr: clear lungs a/p: 88 m hx dementia, cva, htn, hld, hypothyroid, dchf sent [place] for cp. cp, sob: -history unclear, denied symptoms after admission -no signs chf, acs -trops neg x2, ecg and echo unremarkable htn: - was on candesartan and spironolactone at home which were held here for LADY - cont current meds, stable hld: -cont statin lady: -held arb, lasix -creat back to baseline, now rising again, improved with cole placement -renal, following chronic diastolic chf: -no signs vol overload -suspect was dry (prerenal labs) on admit -no sob. appears euvolemic--cont holding lasix for now -echo here unremarkable
--- NOTE | 2019-03-22 12:57 | PN ---
Progress Note (short form) - Note Progress Note: Renal follow up for LADY Seen and examined at the bedside awake, groggy no overnight events tolerating oral diet making urine via cole Vital Signs Temperature 98.4 F 03/22/19 09:49 Pulse Rate 81 03/22/19 09:49 Respiratory Rate 20 03/22/19 09:49 Blood Pressure 151/74 03/22/19 09:49 O2 Sat by Pulse Oximetry (%) 96 03/22/19 09:00 Intake & Output 03/19/19 03/20/19 03/21/19 03/22/19 23:59 23:59 23:59 23:59 Intake Total 1850 2570 820 900 Output Total 700 700 800 800 Balance 1150 1870 20 100 NAD awake and alert neck supple RRR Dec BS no LE edema no bladder distension CBC, BMP 03/22/19 07:05 03/22/19 07:05 Current Medications Acetaminophen (Tylenol Suppository -) 650 mg [place] Q6H PRN PRN Reason: FEVER Last Admin: 03/21/19 15:24 Dose: 650 mg Atorvastatin Calcium (Lipitor -) 10 mg PO HS [facility] Last Admin: 03/21/19 21:30 Dose: Not Given Bacitracin (Bacitracin -) 1 applic TP DAILY [facility] Last Admin: 03/22/19 09:43 Dose: 1 applic Citalopram Hydrobromide (Celexa -) 10 mg PO DAILY [facility] Last Admin: 03/22/19 10:29 Dose: 10 mg Clonazepam (Klonopin -) 0.25 mg PO HS [facility] Last Admin: 03/21/19 21:30 Dose: Not Given Cyanocobalamin (Vitamin B12 -) 1,000 mcg PO DAILY [facility] Last Admin: 03/22/19 10:30 Dose: 1,000 mcg Docusate Sodium (Colace -) 200 mg PO HS [facility] Last Admin: 03/21/19 21:30 Dose: Not Given Finasteride (Proscar -) 5 mg PO DAILY [facility] Last Admin: 03/22/19 10:29 Dose: 5 mg Heparin Sodium (Porcine) (Heparin -) 5,000 unit SQ BID [facility] Last Admin: 03/22/19 09:43 Dose: 5,000 unit Hydralazine HCl (Apresoline -) 100 mg PO TID [facility] Last Admin: 03/22/19 09:42 Dose: 100 mg Dextrose/Sodium Chloride (D5-1/2ns+40 Meq Kcl -) 40 meq in 1,000 mls @ 60 mls/ hr IV ASDIR [facility] Last Admin: 03/21/19 13:57 Dose: 60 mls/hr Ceftriaxone Sodium 1 gm/ (Dextrose) 50 mls @ 100 mls/hr IVPB DAILY [facility] Last Admin: 03/22/19 09:43 Dose: 100 mls/hr Sodium Chloride (Normal Saline -) 1,000 mls @ 42 mls/hr IV ASDIR [facility] Last Admin: 03/21/19 23:48 Dose: 42 mls/hr Levothyroxine Sodium 100 mcg/ (Levothyroxine Sodium 75 mcg) 175 mcg PO DAILY@ 0700 [facility] Last Admin: 03/22/19 06:12 Dose: 175 mcg Multivitamins/Minerals/Vitamin C (Tab-A-Vit -) 1 tab PO DAILY [facility] Last Admin: 03/22/19 10:29 Dose: 1 tab Pantoprazole Sodium (Protonix -) 40 mg PO DAILY [facility] Last Admin: 03/22/19 10:34 Dose: 40 mg Potassium Phos/Sodium Phos (Phos-Nak Packet -) 1 packet PO TID [facility] Stop: 03/23/19 06:01 Tamsulosin HCl (Flomax -) 0.8 mg PO DAILY@0830 [facility] Last Admin: 03/22/19 10:29 Dose: 0.8 mg 88 year old gentleman with history of CHF, Hypertension, BPH/Urinary retention, CVA/TIA, dementia who [place] with shortness of breath and chest pain and noted to have Cr of 2. 1. Acute kidney injury from renal hypoprofusion (hypotension, CHF) vs. normotensive ATN (ARB) vs. retention 2. Chest pain r/o ACS 3. Shortness of breath without gross volume overload 4. Hx of hypertension 5. BPH 6. Hypophosphatemia Renal function improved to baseline can d/c IVF today oral intake as tolerated UA was without growth Renal function improved s/p IVF and cole maintain cole as per urology Continue Flomax, added proscar. hold ARB and diuretics for now supplament kika Mckeon DO
[2019-03-22 15:07] LABS: TOTAL PROTEIN, URINE 74.3 mg/dL (Not Estab.)
[2019-03-22] MEDS: NAPH,MB-DB/K PH,MBDB POWDER PACKET PO SCH ×2 (15:14→22:27)
--- NOTE | 2019-03-22 18:38 | PN ---
Progress Note, Physician History of Present Illness: Pt is awake, close to his recent baseline, but not opening his eyes Pt w/o SOB, CO, abd pain - Current Medication List Current Medications: Active Medications Acetaminophen (Tylenol Suppository -) 650 mg ID Q6H PRN PRN Reason: FEVER Last Admin: 03/21/19 15:24 Dose: 650 mg Atorvastatin Calcium (Lipitor -) 10 mg PO HS [facility] Last Admin: 03/21/19 21:30 Dose: Not Given Bacitracin (Bacitracin -) 1 applic TP DAILY [facility] Last Admin: 03/22/19 09:43 Dose: 1 applic Citalopram Hydrobromide (Celexa -) 10 mg PO DAILY [facility] Last Admin: 03/22/19 10:29 Dose: 10 mg Clonazepam (Klonopin -) 0.25 mg PO [facility] Last Admin: 03/21/19 21:30 Dose: Not Given Cyanocobalamin (Vitamin B12 -) 1,000 mcg PO DAILY [facility] Last Admin: 03/22/19 10:30 Dose: 1,000 mcg Docusate Sodium (Colace -) 200 mg PO [facility] Last Admin: 03/21/19 21:30 Dose: Not Given Finasteride (Proscar -) 5 mg PO DAILY [facility] Last Admin: 03/22/19 10:29 Dose: 5 mg Heparin Sodium (Porcine) (Heparin -) 5,000 unit SQ BID [facility] Last Admin: 03/22/19 09:43 Dose: 5,000 unit Hydralazine HCl (Apresoline -) 100 mg PO TID [facility] Last Admin: 03/22/19 15:14 Dose: 100 mg Dextrose/Sodium Chloride (D5-1/2ns+40 Meq Kcl -) 40 meq in 1,000 mls @ 60 mls/ hr IV ASDIR [facility] Last Admin: 03/21/19 13:57 Dose: 60 mls/hr Ceftriaxone Sodium 1 gm/ (Dextrose) 50 mls @ 100 mls/hr IVPB DAILY [facility] Last Admin: 03/22/19 09:43 Dose: 100 mls/hr Influenza Virus Vaccine Quadrival (Flulaval Quad [id number]) 60 mcg IM .ONCE ONE Stop: 03/23/19 10:01 Levothyroxine Sodium 100 mcg/ (Levothyroxine Sodium 75 mcg) 175 mcg PO DAILY@ 0700 [facility] Last Admin: 03/22/19 06:12 Dose: 175 mcg Multivitamins/Minerals/Vitamin C (Tab-A-Vit -) 1 tab PO DAILY [facility] Last Admin: 03/22/19 10:29 Dose: 1 tab Pantoprazole Sodium (Protonix -) 40 mg PO DAILY [facility] Last Admin: 03/22/19 10:34 Dose: 40 mg Potassium Phos/Sodium Phos (Phos-Nak Packet -) 1 packet PO TID [facility] Stop: 03/23/19 06:01 Last Admin: 03/22/19 15:14 Dose: 1 packet Tamsulosin HCl (Flomax -) 0.8 mg PO DAILY@0830 [facility] Last Admin: 03/22/19 10:29 Dose: 0.8 mg - Objective Vital Signs: Vital Signs Temperature 98.4 F 03/22/19 09:49 Pulse Rate 68 03/22/19 15:13 Respiratory Rate 20 03/22/19 09:49 Blood Pressure 128/61 03/22/19 15:13 O2 Sat by Pulse Oximetry (%) 96 03/22/19 09:00 Constitutional: Yes: No Distress, Calm Cardiovascular: Yes: Regular Rate and Rhythm, S1, S2 Respiratory: Yes: Regular, CTA Bilaterally. No: Rales Gastrointestinal: Yes: Normal Bowel Sounds, Soft. No: Tenderness Edema: No Psychiatric: Yes: Alert Labs: CBC, BMP 03/22/19 07:05 03/22/19 07:05 INR, PTT INR 1.11 (0.83-1.09) H 03/15/19 17:14 Problem List - Problems (1) Chest pain Code(s): R07.9 - CHEST PAIN, UNSPECIFIED (2) LADY (acute kidney injury) Code(s): N17.9 - ACUTE KIDNEY FAILURE, UNSPECIFIED (3) HTN (hypertension) Code(s): I10 - ESSENTIAL (PRIMARY) HYPERTENSION (4) Dementia Code(s): F03.90 - UNSPECIFIED DEMENTIA WITHOUT BEHAVIORAL DISTURBANCE (5) BPH (benign prostatic hyperplasia) Code(s): N40.0 - BENIGN PROSTATIC HYPERPLASIA WITHOUT LOWER URINRY TRACT SYMP (6) Urinary retention due to benign prostatic hyperplasia Code(s): N40.1 - BENIGN PROSTATIC HYPERPLASIA WITH LOWER URINARY TRACT SYMP; R33.8 - OTHER RETENTION OF URINE (7) Fever Code(s): R50.9 - FEVER, UNSPECIFIED Assessment/Plan Cardio, Renal, ID, , Swallow Consults are appreciated Maintain Dickens. Pt is tolerating PO intake TO [place] PO fluids To DC IVF Pt's condition was reviewed with his nurse Pt's condition's was reviewed with his ; DC planning
[2019-03-22] MEDS: ATORVASTATIN CA 10 MG TABLET (FP) PO SCH (22:27)
[2019-03-22] MEDS: DOCUSATE SODIUM 100 MG CAPSULE (FP) PO SCH (22:27)
[2019-03-22] MEDS: clonazePAM 0.5 MG TABLET PO SCH (22:28)
[2019-03-23] MEDS ORDERED: LEVOTHYROXINE NA 75 MCG TABLET (FP) ONE (06:20)
[2019-03-23] MEDS ORDERED: LEVOTHYROXINE NA 100 MCG TABLET (FP) ONE (06:20)
[2019-03-23] MEDS: LEVOTHYROXINE 100 MCG, LEVOTHYROXINE 75 MCG PO SCH (06:51)
[2019-03-23] MEDS: NAPH,MB-DB/K PH,MBDB POWDER PACKET PO SCH (06:51)
[2019-03-23] MEDS: hydrALAZINE HCL 50 MG TABLET (FP) PO SCH ×3 (06:51→21:22)
[2019-03-23] MEDS: D5-1/2NS+40 MEQ KCL - 40 MEQ/1,000 ML INFUS.BAG IV SCH (08:00)
[2019-03-23] MEDS: TAMSULOSIN HCL 0.4 MG CAP PO SCH ×2 (08:26→09:06)
[2019-03-23] MEDS ORDERED: PT OWN MED DRAWER 7, Y5N ONE (09:02)
[2019-03-23] MEDS ORDERED: DEXTROSE 5%-WATER - 50 ML IVPB ONE (09:03)
[2019-03-23] MEDS ORDERED: cefTRIAXone SODIUM 1 GM VIAL ONE (09:03)
[2019-03-23] MEDS: CEFTRIAXONE 1 GM in DEXTROSE 5%-WATER - 50 ML IVPB SCH (09:05)
[2019-03-23] MEDS: FINASTERIDE 5 MG TABLET (FP) PO SCH ×2 (09:06→10:27)
[2019-03-23] MEDS: PANTOPRAZOLE 40 MG TABLET (FP) PO SCH ×2 (09:06→10:30)
[2019-03-23] MEDS: HEPARIN NA (PORCINE) 5,000 UNITS/ML 1ML VIAL SQ SCH ×2 (09:06→21:23)
[2019-03-23] MEDS: MULTIVITAMINS (DAILY MVI) TABLET (FP) PO SCH ×2 (09:06→10:30)
[2019-03-23] MEDS: CYANOCOBALAMIN 1,000 MCG TABLET (FP) PO SCH ×2 (09:06→10:30)
[2019-03-23] MEDS: CITALOPRAM HYDROBROMIDE 10 MG TABLET (FP) PO SCH ×2 (09:06→09:27)
[2019-03-23] MEDS: BACITRACIN 15 GM TUBE TOPICAL OINTMENT TP SCH (09:06)
[2019-03-23] MEDS ORDERED: FLU VACCINE QUAD 60 MCG/0.5 ML (MDV 19-20) IM ONE (10:00)
--- NOTE | 2019-03-23 12:18 | PN ---
Progress Note, Physician Chief Complaint: at bedside Lethargic Asleep Does not wake to verbal stimuli or deep sternal rub Minimally responsive to noxious stimuli says it is new. History of Present Illness: Afebrile, BP stable. - Current Medication List Current Medications: Active Medications Acetaminophen (Tylenol Suppository -) 650 mg [place] Q6H PRN PRN Reason: FEVER Last Admin: 03/21/19 15:24 Dose: 650 mg Atorvastatin Calcium (Lipitor -) 10 mg PO HS [facility] Last Admin: 03/22/19 22:27 Dose: 10 mg Bacitracin (Bacitracin -) 1 applic TP DAILY [facility] Last Admin: 03/23/19 09:06 Dose: 1 applic Citalopram Hydrobromide (Celexa -) 10 mg PO DAILY [facility] Last Admin: 03/23/19 09:27 Dose: Not Given Clonazepam (Klonopin -) 0.25 mg PO HS [facility] Last Admin: 03/22/19 22:28 Dose: 0.25 mg Cyanocobalamin (Vitamin B12 -) 1,000 mcg PO DAILY [facility] Last Admin: 03/23/19 10:30 Dose: Not Given Docusate Sodium (Colace -) 200 mg PO HS [facility] Last Admin: 03/22/19 22:27 Dose: 200 mg Finasteride (Proscar -) 5 mg PO DAILY [facility] Last Admin: 03/23/19 10:27 Dose: Not Given Heparin Sodium (Porcine) (Heparin -) 5,000 unit SQ BID [facility] Last Admin: 03/23/19 09:06 Dose: 5,000 unit Hydralazine HCl (Apresoline -) 100 mg PO TID [facility] Last Admin: 03/23/19 06:51 Dose: 100 mg Ceftriaxone Sodium 1 gm/ (Dextrose) 50 mls @ 100 mls/hr IVPB DAILY [facility] Last Admin: 03/23/19 09:05 Dose: 100 mls/hr Levothyroxine Sodium 100 mcg/ (Levothyroxine Sodium 75 mcg) 175 mcg PO DAILY@ 0700 [facility] Last Admin: 03/23/19 06:51 Dose: 175 mcg Multivitamins/Minerals/Vitamin C (Tab-A-Vit -) 1 tab PO DAILY [facility] Last Admin: 03/23/19 10:30 Dose: Not Given Pantoprazole Sodium (Protonix -) 40 mg PO DAILY [facility] Last Admin: 03/23/19 10:30 Dose: Not Given Tamsulosin HCl (Flomax -) 0.8 mg PO DAILY@0830 [facility] Last Admin: 03/23/19 08:26 Dose: Not Given - Objective Vital Signs: Vital Signs Temperature 98.4 F 03/23/19 09:23 Pulse Rate 59 L 03/23/19 09:23 Respiratory Rate 19 03/23/19 09:23 Blood Pressure 133/52 L 03/23/19 09:23 O2 Sat by Pulse Oximetry (%) 91 L 03/23/19 09:00 Cardiovascular: Yes: Regular Rate and Rhythm Respiratory: Yes: CTA Bilaterally Gastrointestinal: Yes: Soft Edema: No Neurological: Yes: Lethargy Labs: CBC, BMP 03/22/19 07:05 03/22/19 07:05 INR, PTT INR 1.11 (0.83-1.09) H 03/15/19 17:14 Laboratory Tests 03/22/19 03/22/19 07:05 07:05 WBC 6.4 Hgb 11.2 L Plt Count 255 Sodium 137 Potassium 3.9 Creatinine 0.7 AST 13 L ALT 12 L Microbiology 03/19/19 17:00 Urine - Urine Dickens Urine Culture - Final NO GROWTH OBTAINED 03/18/19 10:27 Blood - Peripheral Venous Blood Culture - Final NO GROWTH AFTER 5 DAYS INCUBATION 03/18/19 10:25 Blood - Peripheral Venous Blood Culture - Final NO GROWTH AFTER 5 DAYS INCUBATION Assessment/Plan Assessment/Plan echo 02/2019: tds; nl lv, rv tds, mild mr/tr/ar ecg: sr lvh, no ischemic changes cxr: clear lungs a/p: 88 m hx dementia, cva, htn, hld, hypothyroid, dchf sent from [place] for cp. cp, sob: -history unclear, denied symptoms after admission -no signs chf, acs -trops neg x2, ecg and echo unremarkable htn: - was on candesartan and spironolactone at home which were held here for LADY - cont current meds, stable hld: -cont statin lady: -held arb, lasix -creat back to baseline -renal, following chronic diastolic chf: -no signs vol overload -suspect was dry (prerenal labs) on admit -no sob. appears euvolemic--cont holding lasix for now -echo here unremarkable Altered MS: -D/w RN and Dr. Langley. -Defer further w/u to PMD, including possible Head CT. -Hemodynamically stable at this time -Advanced directives noted
--- NOTE | 2019-03-23 13:56 | PN ---
Progress Note, Physician History of Present Illness: LETHARGIC IN BED NOT VERBALLY RESPONSIVE AFEBRILE BC NO GROWTH - Current Medication List Current Medications: Active Medications Acetaminophen (Tylenol Suppository -) 650 mg [place] Q6H PRN PRN Reason: FEVER Last Admin: 03/21/19 15:24 Dose: 650 mg Atorvastatin Calcium (Lipitor -) 10 mg PO HS [facility] Last Admin: 03/22/19 22:27 Dose: 10 mg Bacitracin (Bacitracin -) 1 applic TP DAILY [facility] Last Admin: 03/23/19 09:06 Dose: 1 applic Citalopram Hydrobromide (Celexa -) 10 mg PO DAILY [facility] Last Admin: 03/23/19 09:27 Dose: Not Given Clonazepam (Klonopin -) 0.25 mg PO [facility] Last Admin: 03/22/19 22:28 Dose: 0.25 mg Cyanocobalamin (Vitamin B12 -) 1,000 mcg PO DAILY [facility] Last Admin: 03/23/19 10:30 Dose: Not Given Docusate Sodium (Colace -) 200 mg PO HS [facility] Last Admin: 03/22/19 22:27 Dose: 200 mg Finasteride (Proscar -) 5 mg PO DAILY [facility] Last Admin: 03/23/19 10:27 Dose: Not Given Heparin Sodium (Porcine) (Heparin -) 5,000 unit SQ BID [facility] Last Admin: 03/23/19 09:06 Dose: 5,000 unit Hydralazine HCl (Apresoline -) 100 mg PO TID [facility] Last Admin: 03/23/19 06:51 Dose: 100 mg Ceftriaxone Sodium 1 gm/ (Dextrose) 50 mls @ 100 mls/hr IVPB DAILY [facility] Last Admin: 03/23/19 09:05 Dose: 100 mls/hr Levothyroxine Sodium 100 mcg/ (Levothyroxine Sodium 75 mcg) 175 mcg PO DAILY@ 0700 [facility] Last Admin: 03/23/19 06:51 Dose: 175 mcg Multivitamins/Minerals/Vitamin C (Tab-A-Vit -) 1 tab PO DAILY [facility] Last Admin: 03/23/19 10:30 Dose: Not Given Pantoprazole Sodium (Protonix -) 40 mg PO DAILY [facility] Last Admin: 03/23/19 10:30 Dose: Not Given Tamsulosin HCl (Flomax -) 0.8 mg PO DAILY@0830 [facility] Last Admin: 03/23/19 08:26 Dose: Not Given - Objective Vital Signs: Vital Signs Temperature 98.4 F 03/23/19 09:23 Pulse Rate 59 L 03/23/19 09:23 Respiratory Rate 03/23/19 09:23 Blood Pressure 133/52 L 03/23/19 09:23 O2 Sat by Pulse Oximetry (%) 91 L 03/23/19 09:00 Constitutional: Yes: No Distress Cardiovascular: Yes: Regular Rate and Rhythm, S1, S2 Respiratory: Yes: CTA Bilaterally, Diminished Gastrointestinal: Yes: Normal Bowel Sounds, Soft. No: Tenderness Labs: CBC, BMP 03/22/19 07:05 03/22/19 07:05 INR, PTT INR 1.11 (0.83-1.09) H 03/15/19 17:14 Assessment/Plan S/P FEVER ? SOURCE RESOLVED C/S (-) S/P GROSS HEMATURIA URINARY RETENTION AZOTEMIA SUBSTITUTE PO AUGMENTIN DISCUSSED WITH AT BEDSIDE
--- NOTE | 2019-03-23 14:54 | PN ---
Progress Note (short form) - Note Progress Note: Renal follow up for LADY Pt noted to have AMS and increased lethargy per nurse was sent down for CT head vitals signs stable Vital Signs Temperature 98.1 F 03/23/19 14:01 Pulse Rate 59 L 03/23/19 14:01 Respiratory Rate 19 03/23/19 09:23 Blood Pressure 127/47 L 03/23/19 14:01 O2 Sat by Pulse Oximetry (%) 91 L 03/23/19 09:00 Intake & Output 03/20/19 03/21/19 03/22/19 03/23/19 23:59 23:59 23:59 23:59 Intake Total 2570 820 1588 0 Output Total 348 593 5197 200 Balance 1870 20 -412 -200 CBC, BMP 03/22/19 07:05 03/22/19 07:05 Current Medications Acetaminophen (Tylenol Suppository -) 650 mg [place] Q6H PRN PRN Reason: FEVER Last Admin: 03/21/19 15:24 Dose: 650 mg Amoxicillin/Clavulanate Potassium (Augmentin - 500mg Tablet) 1 tab PO BID@0800, 1730 [facility] Atorvastatin Calcium (Lipitor -) 10 mg PO HS [facility] Last Admin: 03/22/19 22:27 Dose: 10 mg Bacitracin (Bacitracin -) 1 applic TP DAILY [facility] Last Admin: 03/23/19 09:06 Dose: 1 applic Citalopram Hydrobromide (Celexa -) 10 mg PO DAILY [facility] Last Admin: 03/23/19 09:27 Dose: Not Given Clonazepam (Klonopin -) 0.25 mg PO HS [facility] Last Admin: 03/22/19 22:28 Dose: 0.25 mg Cyanocobalamin (Vitamin B12 -) 1,000 mcg PO DAILY [facility] Last Admin: 03/23/19 10:30 Dose: Not Given Docusate Sodium (Colace -) 200 mg PO HS [facility] Last Admin: 03/22/19 22:27 Dose: 200 mg Finasteride (Proscar -) 5 mg PO DAILY [facility] Last Admin: 03/23/19 10:27 Dose: Not Given Heparin Sodium (Porcine) (Heparin -) 5,000 unit SQ BID [facility] Last Admin: 03/23/19 09:06 Dose: 5,000 unit Hydralazine HCl (Apresoline -) 100 mg PO TID [facility] Last Admin: 03/23/19 13:53 Dose: Not Given Levothyroxine Sodium 100 mcg/ (Levothyroxine Sodium 75 mcg) 175 mcg PO DAILY@ 0700 [facility] Last Admin: 03/23/19 06:51 Dose: 175 mcg Multivitamins/Minerals/Vitamin C (Tab-A-Vit -) 1 tab PO DAILY [facility] Last Admin: 03/23/19 10:30 Dose: Not Given Pantoprazole Sodium (Protonix -) 40 mg PO DAILY [facility] Last Admin: 03/23/19 10:30 Dose: Not Given Tamsulosin HCl (Flomax -) 0.8 mg PO DAILY@0830 [facility] Last Admin: 03/23/19 08:26 Dose: Not Given 88 year old gentleman with history of CHF, Hypertension, BPH/Urinary retention, CVA/TIA, dementia who presented from [place] with shortness of breath and chest pain and noted to have Cr of 2. 1. Acute kidney injury now resolved 2. Chest pain r/o ACS 3. Shortness of breath without gross volume overload 4. Hx of hypertension 5. BPH 6. Hypophosphatemia 7. Urinary retention 8. Altered mental status given AMS will check BMP, CBC, Phos levels to r/o electroyte or renal dysfunction as cause of AMS Renal function had been improved and stable to this point f/u imaging studies of the head continue supportive care Dickens management per urology Cam Mckeon DO
[2019-03-23 16:17] LABS: BASO % 0.4 % (0-2.0); EOS % 4.4 % (0-4.5); LYMPH % 15.2 % (8-40); MCHC 35.4 g/dl (32.0-35.9); MEAN CELL VOLUME 87.7 fl (80-96); MEAN PLT VOLUME 8.3 fl (7.5-11.1); MONO % 11.7 % (3.8-10.2); NEUT % 68.3 % (42.8-82.8); PLATELET COUNT 250 K/MM3 (134-434); RBC 3.53 M/mm3 (4.00-5.60); RDW 13.3 % (11.9-15.9); WHITE BLOOD COUNT 6.4 K/mm3 (4.0-10.0)
[2019-03-23 16:45] LABS: BLOOD UREA NITROGEN 17.2 mg/dL (7-18); CALCIUM 8.2 mg/dL (8.5-10.1); CREATININE 1.2 mg/dL (0.55-1.3); PHOSPHOROUS 3.2 mg/dL (2.5-4.9); POTASSIUM 3.9 mmol/L (3.5-5.1)
--- NOTE | 2019-03-23 17:57 | CONSULT ---
Consult - text type - Consultation Consultation Note: NEUROLOGY CONSULTATION is greatly appreciated: Events reviewed. Patient examined with his at the bedside. This 88 yo RH m man with h/o hypothyroidism, s/p thyroidectomy, HTN, ASHD and dementia is admitted after urinary retention requiring Dickens. Maintained on: Acetaminophen; Candesartan; Citalopram; Cyanocobalamin; Furosemide; Levothyroxine; Pantoprazole; Silodosin; Simvastatin; Tamsulosin; clonazePAM; and hydrALAZINE. His relates that clonazepam was discontinued 2-3 weeks ago in [place] due to sedation. His relates at least 3 years of progressive cognitive decline. Recalls neuropsyche testing 3 years ago yielding Dx "Moderate dementia." He stopped driving at that time. Progressive gait decline ensued and Pt was admitted to [place], after fall, in for loss of ambulation. In W/C. Neuro consult called for waxing and waning level of consciousness as per his . CT of head (reviewed): Moderate diffuse atrophy without acute changes. Urine [id number] on 03/19. Now on Oral amoxicillin. MANUEL: No bruits. Cor reg. No external head trauma. + Dickens. s/p R TKR NEURO: Awake but resting with eyes closed Confused. Ox here. Gives his name. Extremely rigid including neck but neg Kernigs. ++Glabella, snout, suck. Symmetrical grasps CN: Full EOMs and juárez to threat. No facial. Gag OK Motor: Rigid tone symmetrically. Withdraws symmetrically. Reduced reflexes. Downgoing toes. No obvious dystaxia Withdraws all 4's to pinch IMP: Severe, B/L cerebral dysfunction without obvious focality. Most c/w Alzheimer's disease (AD) Waxing and waning status c/w Toxic metabolic encephalopathy with contributions from infection (UTI) and meds (clonazepam). SUGGEST: Check TSH, B 12, RPR Consider continued IV antibiotics until UA WBC clears. Hold clonazepam and observe. Reevaluate need/benefit of citalopram. Thank you very much, Francois Cee MD
[2019-03-23] MEDS: AMOX TR/POT CLAV 500MG/125MG TABLETS (FP) PO SCH (18:36)
--- NOTE | 2019-03-23 18:57 | PN ---
Progress Note, Physician Chief Complaint: Dickens in, clear urine waxing and waning mental status neurology input noted currently sleeping, comfortable, does not open eyes; VSS; sometimes answers in short words but now not talking, - Current Medication List Current Medications: Active Medications Acetaminophen (Tylenol Suppository -) 650 mg ME Q6H PRN PRN Reason: FEVER Last Admin: 03/21/19 15:24 Dose: 650 mg Amoxicillin/Clavulanate Potassium (Augmentin - 500mg Tablet) 1 tab PO BID@0800, 1730 [facility] Last Admin: 03/23/19 18:36 Dose: Not Given Atorvastatin Calcium (Lipitor -) 10 mg PO HS [facility] Last Admin: 03/22/19 22:27 Dose: 10 mg Bacitracin (Bacitracin -) 1 applic TP DAILY [facility] Last Admin: 03/23/19 09:06 Dose: 1 applic Citalopram Hydrobromide (Celexa -) 10 mg PO DAILY [facility] Last Admin: 03/23/19 09:27 Dose: Not Given Clonazepam (Klonopin -) 0.25 mg PO HS [facility] Last Admin: 03/22/19 22:28 Dose: 0.25 mg Cyanocobalamin (Vitamin B12 -) 1,000 mcg PO DAILY [facility] Last Admin: 03/23/19 10:30 Dose: Not Given Docusate Sodium (Colace -) 200 mg PO HS [facility] Last Admin: 03/22/19 22:27 Dose: 200 mg Finasteride (Proscar -) 5 mg PO DAILY [facility] Last Admin: 03/23/19 10:27 Dose: Not Given Heparin Sodium (Porcine) (Heparin -) 5,000 unit SQ BID [facility] Last Admin: 03/23/19 09:06 Dose: 5,000 unit Hydralazine HCl (Apresoline -) 100 mg PO TID [facility] Last Admin: 03/23/19 13:53 Dose: Not Given Levothyroxine Sodium 100 mcg/ (Levothyroxine Sodium 75 mcg) 175 mcg PO DAILY@ 0700 [facility] Last Admin: 03/23/19 06:51 Dose: 175 mcg Multivitamins/Minerals/Vitamin C (Tab-A-Vit -) 1 tab PO DAILY [facility] Last Admin: 03/23/19 10:30 Dose: Not Given Pantoprazole Sodium (Protonix -) 40 mg PO DAILY [facility] Last Admin: 03/23/19 10:30 Dose: Not Given Tamsulosin HCl (Flomax -) 0.8 mg PO DAILY@0830 [facility] Last Admin: 03/23/19 08:26 Dose: Not Given - Objective Vital Signs: Vital Signs Temperature 98.1 F 03/23/19 14:01 Pulse Rate 59 L 03/23/19 14:01 Respiratory Rate 03/23/19 09:23 Blood Pressure 127/47 L 03/23/19 14:01 O2 Sat by Pulse Oximetry (%) 91 L 03/23/19 09:00 Constitutional: Yes: No Distress Eyes: Yes: Conjunctiva Clear HENT: Yes: Atraumatic Neck: Yes: Supple Cardiovascular: Yes: Regular Rate and Rhythm Respiratory: Yes: Diminished Gastrointestinal: Yes: Soft. No: Tenderness Genitourinary: Yes: Dickens Present. No: Hematuria Musculoskeletal: No: Joint Stiffness, Joint Swelling Extremities: No: Cold, Cool, Cyanosis, Deformity Edema: No Integumentary: No: Rash, Venous Stasis Changes Neurological: No: Alert Psychiatric: No: Alert, Agitated Labs: CBC, BMP 03/23/19 15:45 03/23/19 15:45 INR, PTT INR 1.11 (0.83-1.09) H 03/15/19 17:14 - ....Imaging Other: Report Reviewed Assessment/Plan 88Y M with PMH of CVA/TIA 2018, HTN, CHF, HTN, BPJ, Cardiomyopathy, Thyroid ca s /p thyroidectomy, Dementia, Anxiety presenting to ED with complaints of chest pain and SOB . Found to be in ARF urinary obstruction US c/w severe BPH. renal, cardiology and f/u; Dickens reinserted for urinary retention f/u s/p fever nUTI -ATB per ID f/u cultures neurology and head CT for waxing and waning mental status falls decubs aspiration DVT pfx d/w staff
[2019-03-23] MEDS: DOCUSATE SODIUM 100 MG CAPSULE (FP) PO SCH (21:22)
[2019-03-23] MEDS: ATORVASTATIN CA 10 MG TABLET (FP) PO SCH (21:22)
[2019-03-23] MEDS: clonazePAM 0.5 MG TABLET PO SCH (21:23)
[2019-03-24 06:03] VITALS: PULSE 65
[2019-03-24] MEDS ORDERED: LEVOTHYROXINE NA 75 MCG TABLET (FP) ONE (06:09)
[2019-03-24] MEDS ORDERED: LEVOTHYROXINE NA 100 MCG TABLET (FP) ONE (06:09)
[2019-03-24] MEDS: LEVOTHYROXINE 100 MCG, LEVOTHYROXINE 75 MCG PO SCH (06:19)
[2019-03-24] MEDS: hydrALAZINE HCL 50 MG TABLET (FP) PO SCH ×2 (06:19→13:09)
[2019-03-24] MEDS ORDERED: PT OWN MED DRAWER 7, Y5N ONE ×2 (08:01→16:56)
[2019-03-24] MEDS: MULTIVITAMINS (DAILY MVI) TABLET (FP) PO SCH (09:17)
[2019-03-24] MEDS: FINASTERIDE 5 MG TABLET (FP) PO SCH (09:17)
[2019-03-24] MEDS: TAMSULOSIN HCL 0.4 MG CAP PO SCH (09:17)
[2019-03-24] MEDS: PANTOPRAZOLE 40 MG TABLET (FP) PO SCH (09:17)
[2019-03-24] MEDS: CYANOCOBALAMIN 1,000 MCG TABLET (FP) PO SCH (09:18)
[2019-03-24] MEDS: CITALOPRAM HYDROBROMIDE 10 MG TABLET (FP) PO SCH (09:18)
[2019-03-24] MEDS: BACITRACIN 15 GM TUBE TOPICAL OINTMENT TP SCH (09:18)
[2019-03-24] MEDS: AMOX TR/POT CLAV 500MG/125MG TABLETS (FP) PO SCH ×2 (09:18→17:01)
[2019-03-24] MEDS: HEPARIN NA (PORCINE) 5,000 UNITS/ML 1ML VIAL SQ SCH (09:18)
--- NOTE | 2019-03-24 13:00 | DS ---
Physical Examination Vital Signs: Vital Signs Temperature 98.4 F 03/24/19 07:51 Pulse Rate 65 03/24/19 07:51 Respiratory Rate 16 03/24/19 07:51 Blood Pressure 153/64 03/24/19 07:51 O2 Sat by Pulse Oximetry (%) 93 L 03/24/19 09:00 Findings/Remarks: Pt is awake, his is a t bed side. Pt w/o SOB, CP, abd pain Constitutional: Yes: No Distress, Calm Cardiovascular: Yes: Regular Rate and Rhythm, S1, S2 Respiratory: Yes: Regular, CTA Bilaterally. No: Rales Gastrointestinal: Yes: Normal Bowel Sounds, Soft. No: Tenderness Edema: No Neurological: Yes: Alert, Oriented (persons) Labs: CBC, BMP 03/23/19 15:45 03/23/19 15:45 Discharge Summary Problems reviewed: Yes Reason For Visit: ACUTE KIDNEY INJURY Current Active Problems LADY (acute kidney injury) (Acute) BPH (benign prostatic hyperplasia) (Acute) Chest pain (Acute) Dementia (Acute) Fever (Acute) HTN (hypertension) (Acute) Urinary retention due to benign prostatic hyperplasia (Acute) Procedures: Principal: Head CT scan. Renal US. CXR Hospital Course: Pt developed CP, his requested hospital transfer. In ER pt was found to be in LADY; pt was noticed to have urine retention, UTI, Dickens was placed; IV abtx and IVF were started with improvement in renal function, back to baseline. Pt failed TOV and Dickens was reinserted. Pt r/o OK by CE. Pt was seen in consult by Cardio (Dr Hawley), Renal (Dr Mckeon), ID (Dr Peralta), (Dr Blunt), Swallow ( Angelina Still), Neuro (Dr. Vannesa Cee). Pt to be DC'ed back to [place]. Plan of Treatment: Needs (own) follow-up. Dickens replacement every 28 days (by ) Swallow reevaluation Condition: Improved - Instructions Diet, Activity, Other Instructions: Puree diet. Strong consistency fluids Referrals: Darshan Langley MD [Primary Care Provider] - - Home Medications Comprehensive Discharge Medication List: Ambulatory Orders Acetaminophen [Tylenol] 650 mg PO BID PRN 03/16/19 Bacitracin - [Bacitracin Topical Ointment -] 500 units TP DAILY 03/16/19 Candesartan Cilexetil [Atacand -] 4 mg PO DAILY 03/16/19 Citalopram Hydrobromide [Celexa -] 10 mg PO DAILY 03/16/19 Cyanocobalamin 1,000 mcg PO DAILY 03/16/19 Docusate 100 mg 200 mg PO HS 03/16/19 Eucerin (Small Jar) - 1 applic TP DAILY 03/16/19 Furosemide 60 mg PO DAILY 03/16/19 Levothyroxine Sodium [Levoxyl] 175 mcg PO DAILY 03/16/19 Multivitamin [One-Daily Multi-Vitamin] 1 tab PO DAILY 03/16/19 Pantoprazole Sodium [Protonix] 40 mg PO DAILY 03/16/19 Silodosin 8 mg PO DAILY 03/16/19 Simvastatin 5 mg PO HS 03/16/19 Tamsulosin HCl 0.4 mg PO DAILY 03/16/19 clonazePAM [Klonopin -] 0.25 mg PO HS 03/16/19 hydrALAZINE HCL [Apresoline -] 100 mg PO TID 03/16/19
[2019-03-24 15:00] VITALS: BP 123/60; TEMP 97.5
== END 2019-03-24 18:49 | DRG 682 ==
LOC: JER 15:41 → JERBED 19:13 → J6S 21:19
PROVIDERS: ADMIT Specialist; ATTEND Specialist
DX: N17.9 Acute kidney failure, unspecified (principal); G93.41 Metabolic encephalopathy; I42.8 Other cardiomyopathies; R64 Cachexia; N39.0 Urinary tract infection, site not specified; I50.32 Chronic diastolic (congestive) heart failure; R50.9 Fever, unspecified; R31.0 Gross hematuria; F03.90 Unspecified dementia, unspecified severity, without behavioral disturbance, psychotic disturbance, mood disturbance, and anxiety; R41.82 Altered mental status, unspecified; R07.89 Other chest pain; F41.9 Anxiety disorder, unspecified; Z68.21 Body mass index [BMI] 21.0-21.9, adult; E83.39 Other disorders of phosphorus metabolism; N40.1 Benign prostatic hyperplasia with lower urinary tract symptoms; R33.8 Other retention of urine; I11.0 Hypertensive heart disease with heart failure; Z86.73 Personal history of transient ischemic attack (TIA), and cerebral infarction without residual deficits; Z85.850 Personal history of malignant neoplasm of thyroid
CPT/HCPCS: 36415; 70450-TC; 71045-TC-FY; 76775-TC; 76856-TC; 80048; 80053; 81003; 82436; 82550; 82565; 82570; 82607; 83735; 83880; 83883; 83935; 84100; 84133; 84155; 84156; 84157; 84165; 84300; 84443; 84484; 84540; 85025; 85027; 85610; 86593; 87040; 87086; 87205; 93005; 93010; 93306-TC; 97161-GP; 99283-25; G0008; J1644; J7030; Q2036